=== PATIENT | male | born 1970 | race American Indian/Alaskan Native ===

== ENCOUNTER 2017-07-17 10:13 | Emergency (ER) | payer SELFPAY ==
[2017-07-17 10:20] VITALS: BMI 43.5
[2017-07-17] MEDS ORDERED: Sodium Chloride 0.9% 1,000 ML IV ONE (10:47)
[2017-07-17 11:08] LABS: BASO # 0.1 K/uL (0.0-0.2); BASO % 0.7 % (0.0-2.0); EOS # 0.3 K/uL (0.0-0.7); EOS % 2.5 % (0.0-4.0); HEMATOCRIT 37.8 % (35.0-51.0); LYMPH # 1.6 K/uL (1.0-4.3); LYMPH % 15.9 % (20.0-40.0); MEAN CELL VOLUME 81.6 fL (80.0-94.0); MEAN CORPUSCULAR HEMOGLOBIN 27.9 pg (27.0-31.0); MEAN CORPUSCULAR HGB CONC 34.3 g/dL (33.0-37.0); MEAN PLATELET VOLUME 7.7 fL (7.2-11.7); MONO # 1.4 K/uL (0.0-0.8); MONO % 14.2 % (0.0-10.0); RED CELL DISTRIBUTION WIDTH 13.4 % (11.5-14.5); WHITE BLOOD COUNT 10.2 K/uL (4.8-10.8)
[2017-07-17 11:17] LABS: CHLORIDE 97 mmol/L (98-107); POTASSIUM 4.2 mmol/L (3.6-5.2); SODIUM 132 mmol/L (132-148)
[2017-07-17 11:20] LABS: ALB/GLOB RATIO 0.8 (1.0-2.1); BILIRUBIN,TOTAL 0.6 mg/dL (0.2-1.3); BLOOD UREA NITROGEN 12 mg/dL (9-20); CARBON DIOXIDE 24 mmol/L (22-30); GFR AFRICAN-AMERICAN > 60; TOTAL PROTEIN 7.2 g/dL (6.3-8.3)
[2017-07-17 11:21] LABS: ALKALINE PHOSPHATASE 141 U/L (38-126); ALT/SGPT 74 U/L (21-72); AST/SGOT 60 U/L (17-59); CALCIUM 8.8 mg/dl (8.6-10.4); GLUCOSE,RANDOM 285 mg/dL (75-110)
--- NOTE | 2017-07-17 11:52 | C.PDOC ---
History Of Present Illness 46 year old male with PMH of DM presents to ED with complaints of fever, cough, generalized body aches, abdominal pain, nausea and vomiting for 3 days. Patient reports onset of cough and congestion was 3 days ago and gradually symptoms worsened, coughing up yellow sputum. He reports yesterday having abdominal pain with cough and vomited 2 times. Last night he developed fever and took Aleve with mild relief. Patient awoke this morning and feels body aches. He took theraflu without relief. 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 Time Seen by Provider: 07/17/17 10:46 Chief Complaint (Nursing): Flu-like Symptoms History Per: Patient History/Exam Limitations: no limitations Onset/Duration Of Symptoms: Days (x3) Current Symptoms Are (Timing): Still Present Sick Contacts (Context): Individual(s) At Work Associated Symptoms: Fever, Vomiting Past Medical History Reviewed: Historical Data, Nursing Documentation, Vital Signs Vital Signs: Last Vital Signs Temp 99.1 F 07/17/17 12:28 Pulse 102 H 07/17/17 12:28 Resp 20 07/17/17 12:28 BP 136/79 07/17/17 12:28 Pulse Ox 97 07/17/17 12:28 - Medical History PMH: Diabetes Family History: States: Unknown Family Hx - Social History Hx Alcohol Use: No Hx Substance Use: No - Immunization History Hx Tetanus Toxoid Vaccination: No Hx Influenza Vaccination: No Hx Pneumococcal Vaccination: No Review Of Systems Except As Marked, All Systems Reviewed And Found Negative. Constitutional: Positive for: Fever, Malaise ENT: Positive for: Nose Congestion. Negative for: Ear Pain, Throat Pain Cardiovascular: Negative for: Chest Pain, Palpitations Respiratory: Positive for: Cough, Sputum (yellow) Gastrointestinal: Positive for: Nausea, Vomiting, Abdominal Pain. Negative for : Diarrhea Musculoskeletal: Positive for: Other (Myalgias) Neurological: Negative for: Headache, Dizziness Physical Exam - Physical Exam Appears: Well, Non-toxic, No Acute Distress Skin: Warm, Dry, No Rash Head: Atraumatic, Normacephalic Eye(s): bilateral: Normal Inspection, PERRL, EOMI Ear(s): Bilateral: Normal (no erythema) Nose: Normal, No Flaring Oral Mucosa: Moist Teeth: Normal Dentition Gingiva: Normal Appearing Throat: Normal, No Erythema, No Exudate, No Drooling, No Mass Neck: Normal ROM Chest: Symmetrical Cardiovascular: Rhythm Regular (tachycardic), No Murmur Respiratory: Normal Breath Sounds, No Rales, No Rhonchi, No Wheezing Gastrointestinal/Abdominal: Bowel Sounds (active), Soft, Tenderness (Mild epigastric Tenderness), No Guarding Back: Normal Inspection, No CVA Tenderness, No Vertebral Tenderness, No Paraspinal Tenderness Extremity: Bilateral: Atraumatic, Normal Color And Temperature, Normal ROM Neurological/Psych: Oriented x3, Normal Speech Gait: Steady ED Course And Treatment - Laboratory Results Result Diagrams: 07/17/17 11:05 07/17/17 11:05 Lab Interpretation: Abnormal O2 Sat by Pulse Oximetry: 95 (RA) Pulse Ox Interpretation: Normal - Radiology CXR: Interpreted by Me, Viewed By Me CXR Interpretation: Yes: Infiltrates (left lower lobe), Heart Size (normal) Medical Decision Making Medical Decision Making: Impression: 46 y.o male with h.o DM c.o fever, cough, abdominal pain Prior records reviewed: Patient was admitted 07/12/17 for cellulitis and uncontrolled DM Plan: * Labs * CXR * IV NS * Tylenol Progress: Labs reviewed showing no leukocytosis CXR show infiltrate to left lower lobe, Will treat with antibiotics On re-eval, fever reduced and patient in no respiratory distress. Discussed results with patient, and copy of report was provided. Plan is to discharge with Rx. Patient feels comfortable going home and will be discharged. Patient given follow up instructions. Instructed to return to ER if symptoms worsen or new symptoms arise. Disposition Counseled Patient/Family Regarding: Studies Performed, Diagnosis, Need For Followup, Rx Given - Disposition Referrals: [facility] [Outside] [facility] [employer] [facility] [Outside] Disposition: HOME/ ROUTINE Disposition Time: 12:15 Condition: IMPROVED Additional Instructions: Your prescriptions were sent to your pharmacy Your labs show high blood sugar, be sure to take your diabetes medication XRay shows pneumonia for which you need to take antibiotic Zithromax daily Use inhaler as needed for any shortness of breath and cough medicine as needed Please follow up with your primary medical doctor or clinic in 2-5 days for further evaluation. Return to the emergency department at any time if symptoms persist or worsen. Prescriptions: Albuterol HFA [Ventolin HFA 90 mcg/actuation (8 g)] 1 puff IH Q4 #1 puff Azithromycin [Zithromax] 250 mg PO DAILY #4 tab Benzonatate [Tessalon Perles] 100 mg PO TID #30 sgl Instructions: Bacterial Pneumonia (DC) Forms: [facility] ([place]) - POA Present On Arrival: Poor Glycemic Control - Clinical Impression Clinical Impression: Pneumonia - Scribe Statement The provider has reviewed the documentation as recorded by the Scribomar Manzo All medical record entries made by the Scribe were at my direction and personally dictated by me. I have reviewed the chart and agree that the record accurately reflects my personal performance of the history, physical exam, medical decision making, and the department course for this patient. I have also personally directed, reviewed, and agree with the discharge instructions and disposition.
[2017-07-17 12:10] LABS: RBC URINE 2 /hpf (0-3); URINE BILIRUBIN NEGATIVE (NEGATIVE); URINE BLOOD 2+ (NEGATIVE); URINE COLOR Yellow (YELLOW); URINE GLUCOSE (UA) 1+ mg/dL (Normal); URINE KETONE NEGATIVE (NEGATIVE); URINE LEUKOCYTE ESTERASE NEG Leu/uL (Negative); URINE PROTEIN 2+ mg/dL (NEGATIVE); URINE UROBILINOGEN NORMAL mg/dL (0.2-1.0); WBC URINE 2 /hpf (0-5)
[2017-07-17 12:29] VITALS: BP 136/79; PULSE 102; RESP 20; TEMP 99.1
[2017-07-17 14:05] VITALS: O2SAT 95
--- NOTE | 2017-07-17 15:07 | RAD ---
HISTORY: cough, fever COMPARISON: Prior portable chest 07/13/2016 TECHNIQUE: Chest PA and lateral FINDINGS: LUNGS: Interval patchy density seen the mid to inferior left chest partially silhouetting the medial left hemidiaphragm but not the left heart border suggestive of a left lower lobe pneumonia. No right-sided infiltrate. PLEURA: No significant pleural effusion identified. No pneumothorax apparent. CARDIOVASCULAR: Normal. OSSEOUS STRUCTURES: No significant abnormalities. VISUALIZED UPPER ABDOMEN: Normal. OTHER FINDINGS: None. IMPRESSION: Findings compatible with interval left lower lobe pneumonia. Continued clinical and radiographic monitoring are advised.
== END 2017-07-17 12:49 | disposition home or self-care (01) ==
LOC: C.ER 10:13
DX: J18.9 Pneumonia, unspecified organism (principal)
CPT/HCPCS: 71020; 80053; 81001; 83690; 85025; 96360; 99285; J7040

== ENCOUNTER 2017-07-30 16:47 | Inpatient (IN) | payer SELFPAY ==
[2017-07-30 16:47] VITALS: BMI 43.5
[2017-07-30] MEDS ORDERED: Sodium Chloride 0.9% 1,000 ML IV ONE (17:31)
[2017-07-30] MEDS ORDERED: Morphine 4 MG/ML VIAL ONE (17:42)
[2017-07-30] MEDS ORDERED: Sodium Chloride 0.9% 1,000 ML ONE (17:42)
[2017-07-30 17:46] LABS: VENOUS BLOOD GAS BASE EXCESS 1.1 mmol/L (0.0-2.0); VENOUS BLOOD GAS PCO2 28 mmHg (40-60); VENOUS BLOOD PH 7.52 (7.32-7.43)
[2017-07-30 17:47] LABS: BASO # 0.1 K/uL (0.0-0.2); BASO % 0.4 % (0.0-2.0); EOS # 0.1 K/uL (0.0-0.7); EOS % 0.6 % (0.0-4.0); HEMATOCRIT 38.2 % (35.0-51.0); LYMPH # 1.8 K/uL (1.0-4.3); LYMPH % 8.1 % (20.0-40.0); MEAN CELL VOLUME 81.3 fL (80.0-94.0); MEAN CORPUSCULAR HEMOGLOBIN 28.3 pg (27.0-31.0); MEAN CORPUSCULAR HGB CONC 34.8 g/dL (33.0-37.0); MEAN PLATELET VOLUME 7.9 fL (7.2-11.7); MONO % 9.4 % (0.0-10.0); PLATELET COUNT 454 K/uL (130-400); RED CELL DISTRIBUTION WIDTH 13.2 % (11.5-14.5); WHITE BLOOD COUNT 21.7 K/uL (4.8-10.8)
[2017-07-30 18:02] LABS: CHLORIDE 98 mmol/L (98-107); POTASSIUM 4.4 mmol/L (3.6-5.2); SODIUM 132 mmol/L (132-148)
[2017-07-30 18:04] LABS: GFR AFRICAN-AMERICAN > 60
[2017-07-30 18:05] LABS: ALKALINE PHOSPHATASE 123 U/L (38-126); ALT/SGPT 35 U/L (21-72); AST/SGOT 29 U/L (17-59); BILIRUBIN,TOTAL 1.2 mg/dL (0.2-1.3); BLOOD UREA NITROGEN 15 mg/dL (9-20); CARBON DIOXIDE 21 mmol/L (22-30); GLUCOSE,RANDOM 270 mg/dL (75-110)
[2017-07-30] MEDS ORDERED: Vancomycin 1 gm/NS 200 ml 200 ML IVPB STA (18:28)
[2017-07-30] MEDS ORDERED: Piperacill/Tazo 3.375gm in Dex 50 ML IVPB STA (18:28)
--- NOTE | 2017-07-30 18:31 | C.PDOC ---
History Of Present Illness 46 y/o male with PMH HTN , DM, asthma, and multiple abscesses presents to ED for evaluation of "boil" to right groin associated with fever, and pain for the last 3 days. Notes having history of similar episode last year. Pt states he has history of diabetes but is not taking any medications for it. Of note, pt was diagnosed with pneumonia 2 weeks ago, and states that his cough and congestion still persists. No shortness of breath, chest pain, or any other complaints at this time. Time Seen by Provider: 07/30/17 17:08 Chief Complaint (Nursing): Fever History Per: Patient History/Exam Limitations: no limitations Onset/Duration Of Symptoms: Days (3) Current Symptoms Are (Timing): Still Present Location Of Pain: None Associated Symptoms: Fever. denies: Nausea, Vomiting, Diarrhea Past Medical History Reviewed: Historical Data, Nursing Documentation, Vital Signs Vital Signs: Last Vital Signs Temp 97.6 F 08/03/17 16:12 Pulse 104 H 08/03/17 16:12 Resp 20 08/03/17 16:12 BP 128/74 08/03/17 16:12 Pulse Ox 96 08/03/17 16:12 - Medical History PMH: No Chronic Diseases, Diabetes Family History: States: Unknown Family Hx - Social History Hx Alcohol Use: No Hx Substance Use: No - Immunization History Hx Tetanus Toxoid Vaccination: No Hx Influenza Vaccination: No Hx Pneumococcal Vaccination: No Review Of Systems Except As Marked, All Systems Reviewed And Found Negative. Constitutional: Positive for: Fever ENT: Positive for: Nose Congestion Cardiovascular: Negative for: Chest Pain, Palpitations Respiratory: Positive for: Cough. Negative for: Shortness of Breath Gastrointestinal: Negative for: Nausea, Vomiting, Abdominal Pain Skin: Positive for: Other (painful boil to right groin) Neurological: Negative for: Weakness, Numbness Physical Exam - Physical Exam Appears: Non-toxic, No Acute Distress Skin: Warm, Dry, Other (swelling, induration, and tenderness to right groin area with 0.5 cm open wound with drainage) Head: Atraumatic, Normacephalic Eye(s): bilateral: Normal Inspection, EOMI Oral Mucosa: Moist Neck: Normal ROM, Supple Chest: Symmetrical Cardiovascular: Rhythm Regular Respiratory: Normal Breath Sounds, No Rales, No Rhonchi, No Wheezing Gastrointestinal/Abdominal: Soft, No Tenderness Extremity: Normal ROM Neurological/Psych: Oriented x3, Normal Speech, Normal Cognition ED Course And Treatment - Laboratory Results Result Diagrams: 08/03/17 06:45 08/03/17 06:45 O2 Sat by Pulse Oximetry: 100 (on RA) Pulse Ox Interpretation: Normal Progress Note: Blood work, UA, CXRordered and reviewed. Pt was given Cleocin, Morphine, Vancomycin, Tylenol, Zosyn, and IV fluids. Case discussed with Dr. Edu Louis, who agrees upon plan and admission. Disposition - Disposition Disposition: HOSPITALIZED Disposition Time: 19:00 Condition: STABLE - Clinical Impression Clinical Impression: Uncontrolled diabetes mellitus, Pneumonia, Cellulitis of right thigh - PA / DOG BARBER / Resident Statement MD/DO has reviewed & agrees with the documentation as recorded. - Scribe Statement The provider has reviewed the documentation as recorded by the Scribe Jayde Louis All medical record entries made by the Scribomar were at my direction and personally dictated by me. I have reviewed the chart and agree that the record accurately reflects my personal performance of the history, physical exam, medical decision making, and the department course for this patient. I have also personally directed, reviewed, and agree with the discharge instructions and disposition.
[2017-07-30 18:43] LABS: MAGNESIUM 1.4 mg/dL (1.6-2.3); PHOSPHOROUS 3.4 mg/dL (2.5-4.5)
[2017-07-30 18:47] LABS: INR 1.2
[2017-07-30] MEDS ORDERED: Piperacillin/Tazobact 3.375 gm 100 ML IVPB ONE (19:00)
[2017-07-30] MEDS ORDERED: Vancomycin 1 GM 1 GM/250 ML BAG IVPB ONE ×2 (19:00→19:02)
[2017-07-30 19:43] LABS: NEUTROPHIL 79 % (50-75); TOTAL CELLS COUNTED 100
[2017-07-30 20:23] LABS: VENOUS BLOOD GAS BASE EXCESS 1.3 mmol/L (0.0-2.0); VENOUS BLOOD GAS PCO2 36 mmHg (40-60); VENOUS BLOOD PH 7.45 (7.32-7.43)
[2017-07-31] MEDS: Magnesium Sulfate 1 gm in D5W 1 GM/100 ML BAG IVPB SCH ×2 (01:01→01:07)
--- NOTE | 2017-07-31 02:55 | CP.PCM.HP ---
<Tim Shukla - Last Filed: 07/31/17 08:08> Meds Allergies/Adverse Reactions: Allergies Allergy/AdvReac Type Severity Reaction Status Date / Time No Known Allergies Allergy Verified 07/30/17 17:01 Results - Vital Signs Recent Vital Signs: Last Vital Signs Temp 102.7 F H 07/31/17 00:00 Pulse 117 H 07/31/17 00:00 Resp 20 07/31/17 00:00 BP 131/83 07/31/17 00:00 Pulse Ox 95 07/31/17 00:00 - Labs Result Diagrams: 07/30/17 17:48 07/30/17 17:48 Labs: Laboratory Results - last 24 hr 07/30/17 07/31/17 20:20 07:11 pO2 58 H VBG pH 7.45 H VBG pCO2 36 L VBG HCO3 25.8 VBG Total CO2 26.1 VBG O2 Sat (Calc) 94.3 H VBG Base Excess 1.3 VBG Potassium 4.0 Sodium 134.0 Chloride 102.0 Glucose 281 H Lactate 1.2 POC Glucose (mg/dL) 341 H Venous Blood Potassium 4.0 Attending/Attestation - Attestation I have personally seen and examined this patient.: Yes I have fully participated in the care of the patient.: Yes I have reviewed all pertinent clinical information: Yes Notes (Text): Right groin carbuncle/induration draining puss, swab sent gm stain--> gpc, 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 Plan IVF Clindamycin, as gram stain shows gpc Home dose insulin with sliding scale Replace mag Surgery consult GI/DVT prophylaxis See orders for detail. <Irina Barlow - Last Filed: 07/31/17 08:40> History of Present Illness - History of Present Illness History of Present Illness: HPI: Pt is a 46M with PMH asthma, DM, HTN, and pneumonia 2 weeks ago who presents to the ED c/o flu like symptoms and boil on his right groin. Patient says he noticed a bump in his groin 2 days ago that has gradually enlarged and become more erythematous. Patient says it is painful and describes it as 10/10 intensity. Patient says he also started feeling ill on his way home from work today. Patient admits to fever and chills, feeling weak, dizziness, exertional SOB, cough productive of white sputum, nausea, and vomiting. Patient says he vomited 2-3x yesterday and 3-4x today. Patient says it looked like whatever he ate. Patient denies hematemesis, LAZO, change in vision, tinnitus, sore throat, neck pain, lymphadenopathy, CP/palpitations, wheezing, AP/D/C/melena/ hematochezia, dysuria, frequency, incontinence, hematuria, flank pain, back or joint pain, syncope, and rash. 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 Present on Admission - Present on Admission Any Indicators Present on Admission: Yes History of DVT/PE: No History of Uncontrolled Diabetes: Yes Review of Systems - Review of Systems All systems: reviewed and no additional remarkable complaints except (as per HPI ) Past Patient History - Infectious Disease Hx of Infectious Diseases: None - Past Social History Smoking Status: Former Smoker - ENDOCRINE/METABOLIC Hx Endocrine Disorders: Yes Hx Diabetes Mellitus Type 2: Yes - MUSCULOSKELETAL/RHEUMATOLOGICAL Hx Falls: No - PSYCHIATRIC Hx Substance Use: No - SURGICAL HISTORY Hx Surgeries: No - ANESTHESIA Hx Anesthesia: No Physical Exam - Constitutional Appears: Non-toxic, No Acute Distress - Head Exam Head Exam: NORMAL INSPECTION - Eye Exam Eye Exam: EOMI - ENT Exam ENT Exam: Mucous Membranes Moist - Respiratory Exam Respiratory Exam: Clear to Auscultation Bilateral, NORMAL BREATHING PATTERN - Cardiovascular Exam Cardiovascular Exam: REGULAR RHYTHM, +S1, +S2 - GI/Abdominal Exam GI & Abdominal Exam: Normal Bowel Sounds, Soft. absent: Distended, Tenderness - Exam Additional comments: abscess in Right groin area with purulent drainage, surrounding erythema, and distal tracking. - Extremities Exam Extremities exam: Positive for: normal inspection, pedal pulses present. Negative for: tenderness - Neurological Exam Neurological exam: Alert - Psychiatric Exam Psychiatric exam: Normal Affect, Normal Mood - Skin Skin Exam: Dry, Intact, Normal Color, Warm Results - Vital Signs Recent Vital Signs: Last Vital Signs Temp 102.7 F H 07/31/17 00:00 Pulse 117 H 07/31/17 00:00 Resp 20 07/31/17 00:00 BP 131/83 07/31/17 00:00 Pulse Ox 95 07/31/17 00:00 - Labs Result Diagrams: 07/30/17 17:48 07/30/17 17:48 Labs: Laboratory Results - last 24 hr 07/30/17 20:20 pO2 58 H VBG pH 7.45 H VBG pCO2 36 L VBG HCO3 25.8 VBG Total CO2 26.1 VBG O2 Sat (Calc) 94.3 H VBG Base Excess 1.3 VBG Potassium 4.0 Sodium 134.0 Chloride 102.0 Glucose 281 H Lactate 1.2 Venous Blood Potassium 4.0 Assessment & Plan - Assessment and Plan (Free Text) Assessment: Cellulitis * Surgery consult ([facility]) - recs appreciated * Clindamycin 600 mg Q6 Fever * Tylenol 650 mg PO Q6 PRN Hx DM * F/U HbA1c * Novalin 70/30 25 U BID AC * Insulin sliding scale Hx HTN * Elanapril 2.5 mg BID (home med) Prophylaxis * Heparin * Protonix * Zofran PRN nausea - Date & Time Date: 07/31/17 Time: 08:39
[2017-07-31 08:39] LABS: BASO # 0.1 K/uL (0.0-0.2); BASO % 0.6 % (0.0-2.0); EOS % 0.1 % (0.0-4.0); LYMPH # 1.2 K/uL (1.0-4.3); LYMPH % 6.4 % (20.0-40.0); MEAN CORPUSCULAR HEMOGLOBIN 27.6 pg (27.0-31.0); MEAN CORPUSCULAR HGB CONC 33.7 g/dL (33.0-37.0); MEAN PLATELET VOLUME 8.4 fL (7.2-11.7); MONO # 2.1 K/uL (0.0-0.8); MONO % 10.8 % (0.0-10.0); PLATELET COUNT 380 K/uL (130-400); RED CELL DISTRIBUTION WIDTH 13.3 % (11.5-14.5); WHITE BLOOD COUNT 19.5 K/uL (4.8-10.8)
[2017-07-31] MEDS: (Novolog Mix 70/30) Insulin Aspart/Insulin Aspar 100 units/ml SC SCH ×2 (08:40→17:28)
[2017-07-31] MEDS: (Novolin R) Insulin Human Regular 100 units/ml vial SC SCH ×4 (08:40→22:25)
[2017-07-31 08:47] LABS: CHLORIDE 96 mmol/L (98-107); SODIUM 129 mmol/L (132-148)
[2017-07-31 08:48] LABS: POTASSIUM 4.3 mmol/L (3.6-5.2)
[2017-07-31 08:50] LABS: ALB/GLOB RATIO 0.8 (1.0-2.1); ALKALINE PHOSPHATASE 125 U/L (38-126); AST/SGOT 26 U/L (17-59); BILIRUBIN,TOTAL 1.2 mg/dL (0.2-1.3); BLOOD UREA NITROGEN 15 mg/dL (9-20); CARBON DIOXIDE 21 mmol/L (22-30); GFR AFRICAN-AMERICAN > 60; GLUCOSE,RANDOM 392 mg/dL (75-110); PHOSPHOROUS 2.6 mg/dL (2.5-4.5)
[2017-07-31 08:51] LABS: ALT/SGPT 36 U/L (21-72); CALCIUM 8.2 mg/dl (8.6-10.4); MAGNESIUM 1.9 mg/dL (1.6-2.3)
--- NOTE | 2017-07-31 09:06 | CP.PCM.CON ---
<Cecilia Ramirez - Last Filed: 07/31/17 09:23> History of Present Illness - History of Present Illness History of Present Illness: General surgery consult note for Dr. Ch Consulted for: right inguinal abscess Patient is a 46M with PMH of HTN, DM, asthma, and abscesses, who presented to the ED with subjective fevers, chills, nausea and a "boil" in his right groin. Also complaining of SOB and cough. Patient states that he first noticed the lesion 2 days ago and that it has gotten more painful. Denies any trauma to the area, denies shaving that area, denies vomiting, chest pain, dysuria, hematuria , diarrhia, hematochezia or melena. Patient was admitted recently seen in the ER for pneumonia and discharged to home with PO azithromycin. Patient states that systemic symptoms are very similar to that time. Patient has had multiple abscesses of the skin previously, which resolved with conservative management PMH: HTN, DM, asthma, and abscesses PSH: none All: NKDA Social: denies tobacco, ETOH, and drugs Review of Systems - Review of Systems All systems: reviewed and no additional remarkable complaints except (as per HPI ) - Constitutional Constitutional: Chills, Fever, Weakness - Cardiovascular Cardiovascular: Diaphoresis, Dyspnea. absent: Chest Pain - Respiratory Respiratory: Cough, Dyspnea, Dyspnea on Exertion - Gastrointestinal Gastrointestinal: Nausea. absent: Abdominal Pain, Diarrhea, Hematochezia, Melena, Vomiting - Genitourinary Genitourinary: absent: Change in Urinary Stream, Dysuria, Hematuria - Musculoskeletal Musculoskeletal: Myalgias. absent: Back Pain, Numbness, Tingling - Integumentary Integumentary: Lesions (abscess in the right groin) - Neurological Neurological: absent: Dizziness, Numbness, Tingling - Psychiatric Psychiatric: absent: Anxiety - Endocrine Endocrine: Fatigue. absent: Polyuria Past Patient History - Infectious Disease Hx of Infectious Diseases: None - Past Social History Smoking Status: Former Smoker Cigar Use: No Alcohol: None Drugs: Denies - ENDOCRINE/METABOLIC Hx Endocrine Disorders: Yes Hx Diabetes Mellitus Type 2: Yes - MUSCULOSKELETAL/RHEUMATOLOGICAL Hx Falls: No - PSYCHIATRIC Hx Substance Use: No - SURGICAL HISTORY Hx Surgeries: No - ANESTHESIA Hx Anesthesia: No Meds Allergies/Adverse Reactions: Allergies Allergy/AdvReac Type Severity Reaction Status Date / Time No Known Allergies Allergy Verified 07/30/17 17:01 - Medications Medications: Current Medications Acetaminophen (Tylenol 325mg Tab) 650 mg PO Q6 PRN PRN Reason: Fever >100.4 F Last Admin: 07/31/17 05:36 Dose: 650 mg Heparin Sodium (Porcine) (Heparin) 5,000 units SC Q8 [facility] Last Admin: 07/31/17 05:40 Dose: 5,000 units Clindamycin Phosphate 600 mg/ (Sodium Chloride) 54 mls @ 100 mls/hr IVPB Q6H [facility] Last Admin: 07/31/17 05:40 Dose: 100 mls/hr Insulin Aspart (Novolog Mix 70/30 (70/30 Units/Ml)) 25 units SC BIDAC [facility] Insulin Human Regular (Novolin R) 0 unit SC ACHS [facility] PRN Reason: Protocol Lisinopril (Zestril) 5 mg PO DAILY [facility] Ondansetron HCl (Zofran Inj) 4 mg IVP Q6 [facility] Last Admin: 07/31/17 05:39 Dose: 4 mg Pantoprazole Sodium (Protonix Ec Tab) 40 mg PO DAILY [facility] Physical Exam - Constitutional Appears: Toxic - Head Exam Head Exam: ATRAUMATIC, NORMOCEPHALIC - Eye Exam Eye Exam: Normal appearance. absent: Conjunctival injection, Scleral icterus - ENT Exam ENT Exam: Mucous Membranes Moist, Normal Oropharynx - Respiratory Exam Respiratory Exam: absent: NORMAL BREATHING PATTERN Additional comments: increased respiratory effort - Cardiovascular Exam Cardiovascular Exam: Tachycardia - GI/Abdominal Exam GI & Abdominal Exam: Soft. absent: Distended, Tenderness - Exam Exam: absent: Scrotal Swelling, Testicular Tenderness - Extremities Exam Extremities exam: Positive for: pedal pulses present. Negative for: calf tenderness, pedal edema - Neurological Exam Neurological exam: Alert, Oriented x3 - Psychiatric Exam Psychiatric exam: Normal Affect, Normal Mood - Skin Skin Exam: Diaphoretic, Normal Color, Warm Additional comments: right groin abscess with surrounding induration. Purulent fluid expressible from opening approximtely 1cm in length. No fluctuance appreciated Results - Vital Signs Recent Vital Signs: Last Vital Signs Temp 99 F 07/31/17 08:37 Pulse 113 H 07/31/17 08:37 Resp 20 07/31/17 08:37 BP 109/73 07/31/17 08:37 Pulse Ox 96 07/31/17 08:37 - Labs Result Diagrams: 07/31/17 08:23 07/31/17 08:23 Labs: Laboratory Results - last 24 hr 07/30/17 07/31/17 07/31/17 20:20 07:11 08:23 WBC 19.5 H RBC 4.27 L Hgb 11.8 L Hct 35.0 MCV 82.0 MCH 27.6 MCHC 33.7 RDW 13.3 Plt Count 380 MPV 8.4 Neut % (Auto) 82.1 H Lymph % (Auto) 6.4 L Irion % (Auto) 10.8 H Eos % (Auto) 0.1 Baso % (Auto) 0.6 Neut # 16.0 H Lymph # 1.2 Irion # 2.1 H Eos # 0.0 Baso # 0.1 pO2 58 H VBG pH 7.45 H VBG pCO2 36 L VBG HCO3 25.8 VBG Total CO2 26.1 VBG O2 Sat (Calc) 94.3 H VBG Base Excess 1.3 VBG Potassium 4.0 Sodium 134.0 Chloride 102.0 Glucose 281 H Lactate 1.2 Potassium Carbon Dioxide Anion Gap BUN Creatinine Est GFR ( Amer) Est GFR (Non-Af Amer) POC Glucose (mg/dL) 341 H Random Glucose Calcium Phosphorus Magnesium Total Bilirubin AST ALT Alkaline Phosphatase Total Protein Albumin Globulin Albumin/Globulin Ratio Venous Blood Potassium 4.0 07/31/17 08:23 WBC RBC Hgb Hct MCV MCH MCHC RDW Plt Count MPV Neut % (Auto) Lymph % (Auto) Irion % (Auto) Eos % (Auto) Baso % (Auto) Neut # Lymph # Irion # Eos # Baso # pO2 VBG pH VBG pCO2 VBG HCO3 VBG Total CO2 VBG O2 Sat (Calc) VBG Base Excess VBG Potassium Sodium 129 L Chloride 96 L Glucose Lactate Potassium 4.3 Carbon Dioxide 21 L Anion Gap 16 BUN 15 Creatinine 1.0 Est GFR ( Amer) > 60 Est GFR (Non-Af Amer) > 60 POC Glucose (mg/dL) Random Glucose 392 H Calcium 8.2 L Phosphorus 2.6 Magnesium 1.9 Total Bilirubin 1.2 AST 26 ALT 36 Alkaline Phosphatase 125 Total Protein 7.0 Albumin 3.2 L Globulin 3.8 Albumin/Globulin Ratio 0.8 L Venous Blood Potassium Assessment & Plan - Assessment and Plan (Free Text) Assessment: 46M with right groin abscess and pneumonia febrile with T max 102.7, tachycardia WBC: 19.5 this AM down from 21.1 Plan: -Conservative management at this time--abscess is draining spontaneously and clinical picture likely due to simultaneous pneumonia -Warm compresses -Will re-assess later today -F/U CBC tomorrow AM -continue antibiotics, pain regimen, and nausea medication PRN -IVF -GI PPX -Patient may have diet Further recs per Dr. Atif Ramirez PGY2 <Stefan Srivastava - Last Filed: 08/01/17 21:11> Meds - Medications Medications: Current Medications Acetaminophen (Tylenol 325mg Tab) 650 mg PO Q6 PRN PRN Reason: Fever >100.4 F Last Admin: 07/31/17 15:03 Dose: 650 mg Benzonatate (Tessalon Perles) 100 mg PO TID [facility] Heparin Sodium (Porcine) (Heparin) 5,000 units SC Q8 [facility] Last Admin: 08/01/17 14:22 Dose: 5,000 units Piperacillin Sod/Tazobactam (Sod 3.375 gm/ Sodium Chloride) 100 mls @ 200 mls/ hr IVPB Q8H [facility] Last Admin: 08/01/17 18:43 Dose: 200 mls/hr Sodium Chloride (Sodium Chloride 0.9%) 1,000 mls @ 150 mls/hr IV .Q6H40M [facility] Last Admin: 08/01/17 15:12 Dose: 150 mls/hr Insulin Aspart (Novolog Mix 70/30 (70/30 Units/Ml)) 25 units SC BIDAC [facility] Last Admin: 08/01/17 17:26 Dose: 25 units Insulin Human Regular (Novolin R) 0 unit SC ACHS [facility] PRN Reason: Protocol Last Admin: 08/01/17 17:26 Dose: 6 unit Ketorolac Tromethamine (Toradol) 30 mg IVP Q6 PRN PRN Reason: Pain, moderate (4-7) Last Admin: 08/01/17 17:25 Dose: 30 mg Lisinopril (Zestril) 5 mg PO DAILY [facility] Last Admin: 08/01/17 09:54 Dose: 5 mg Morphine Sulfate (Morphine) 4 mg IVP Q4 PRN PRN Reason: Pain, severe (8-10) Ondansetron HCl (Zofran Inj) 4 mg IVP Q6 [facility] Last Admin: 08/01/17 17:26 Dose: 4 mg Pantoprazole Sodium (Protonix Ec Tab) 40 mg PO DAILY [facility] Last Admin: 08/01/17 09:54 Dose: 40 mg Results - Vital Signs Recent Vital Signs: Last Vital Signs Temp 98.2 F 08/01/17 16:00 Pulse 97 H 08/01/17 16:00 Resp 20 08/01/17 16:00 BP 101/68 08/01/17 16:00 Pulse Ox 99 08/01/17 16:00 - Labs Result Diagrams: 08/01/17 07:41 08/01/17 07:41 Labs: Laboratory Results - last 24 hr 07/31/17 08/01/17 08/01/17 21:05 01:34 07:23 WBC RBC Hgb Hct MCV MCH MCHC RDW Plt Count MPV Neut % (Auto) Lymph % (Auto) Irion % (Auto) Eos % (Auto) Baso % (Auto) Neut # Lymph # Irion # Eos # Baso # Sodium Potassium Chloride Carbon Dioxide Anion Gap BUN Creatinine Est GFR ( Amer) Est GFR (Non-Af Amer) POC Glucose (mg/dL) 306 H 246 H 269 H Random Glucose Calcium Phosphorus Magnesium Total Bilirubin AST ALT Alkaline Phosphatase Total Protein Albumin Globulin Albumin/Globulin Ratio Triglycerides Cholesterol LDL Cholesterol Direct HDL Cholesterol 08/01/17 08/01/17 08/01/17 07:41 07:41 11:10 WBC 18.4 H RBC 3.92 L Hgb 10.8 L Hct 32.5 L MCV 82.8 MCH 27.5 MCHC 33.1 RDW 13.2 Plt Count 356 MPV 8.6 Neut % (Auto) 76.5 H Lymph % (Auto) 10.3 L Irion % (Auto) 11.2 H Eos % (Auto) 1.2 Baso % (Auto) 0.8 Neut # 14.1 H Lymph # 1.9 Irion # 2.1 H Eos # 0.2 Baso # 0.2 Sodium 136 Potassium 4.1 Chloride 100 Carbon Dioxide 22 Anion Gap 19 BUN 9 Creatinine 0.9 Est GFR ( Amer) > 60 Est GFR (Non-Af Amer) > 60 POC Glucose (mg/dL) 265 H Random Glucose 259 H Calcium 7.9 L Phosphorus 2.5 Magnesium 1.8 Total Bilirubin 1.1 AST 34 ALT 34 Alkaline Phosphatase 189 H D Total Protein 6.4 Albumin 2.9 L Globulin 3.6 Albumin/Globulin Ratio 0.8 L Triglycerides 182 H Cholesterol 122 LDL Cholesterol Direct 46 HDL Cholesterol 27 L 08/01/17 16:26 WBC RBC Hgb Hct MCV MCH MCHC RDW Plt Count MPV Neut % (Auto) Lymph % (Auto) Irion % (Auto) Eos % (Auto) Baso % (Auto) Neut # Lymph # Irion # Eos # Baso # Sodium Potassium Chloride Carbon Dioxide Anion Gap BUN Creatinine Est GFR ( Amer) Est GFR (Non-Af Amer) POC Glucose (mg/dL) 285 H Random Glucose Calcium Phosphorus Magnesium Total Bilirubin AST ALT Alkaline Phosphatase Total Protein Albumin Globulin Albumin/Globulin Ratio Triglycerides Cholesterol LDL Cholesterol Direct HDL Cholesterol Attending/Attestation - Attestation I have personally seen and examined this patient.: Yes I have fully participated in the care of the patient.: Yes I have reviewed all pertinent clinical information: Yes Notes (Text): 08/01/17 21:10 Pt was seen and examined at bedside Agree with above note and assessment Pt with right groin abscess I & D at bedside Consent NPO, IVF IV antibiotics Plan d.w pt in detail Risk and benefit explained in detail.
[2017-07-31 09:28] LABS: NEUTROPHIL 82 % (50-75); REACTIVE LYMPHOCYTES 1 % (0-0); TOTAL CELLS COUNTED 100
[2017-07-31 09:29] LABS: GIANT PLATELETS PRESENT; LARGE PLATELETS PRESENT
[2017-07-31 09:30] LABS: PLATELET CLUMPS PRESENT
[2017-07-31] MEDS ORDERED: Sodium Chloride 0.9% 1,000 ML IV SCH (10:30)
--- NOTE | 2017-07-31 11:09 | RAD ---
PROCEDURE: CHEST RADIOGRAPH, 1 VIEW HISTORY: uri COMPARISON: 07/17/2017 FINDINGS: LUNGS: Linear scar/ atelectasis at both lung bases. No farnaz infiltrate. PLEURA: No pneumothorax or pleural fluid seen. CARDIOVASCULAR: Normal. OSSEOUS STRUCTURES: No significant abnormalities. VISUALIZED UPPER ABDOMEN: Normal. OTHER FINDINGS: None. IMPRESSION: No active disease.
[2017-07-31] MEDS: Pantoprazole 40 mg EC Tab PO SCH (11:31)
[2017-07-31] MEDS: Piperacillin/Tazobact 3.375 GM in Sodium Chloride 100 ML IVPB SCH ×2 (11:32→19:48)
[2017-07-31 11:53] LABS: VENOUS BLOOD GAS BASE EXCESS 0.3 mmol/L (0.0-2.0); VENOUS BLOOD GAS PCO2 48 mmHg (40-60); VENOUS BLOOD PH 7.35 (7.32-7.43)
[2017-07-31] MEDS ORDERED: Sodium Chloride 0.9% 1,000 ML IV ONE ×2 (12:28→12:30)
--- NOTE | 2017-07-31 12:44 | PCM.SEPTIC ---
Sepsis Progress Note - Reassessment Type Date of Evaluation: 07/31/17 Time of Evaluation: 12:17 Reassessment Type: Non-invasive reassessment - Non Invasive Reassessment Were the most recent vital sign reviewed: Yes Vital Sign (Latest): Temp Pulse Resp BP Pulse Ox 103.3 F H 132 H 20 172/82 H 96 07/31/17 12:00 07/31/17 12:00 07/31/17 12:00 07/31/17 12:00 07/31/17 12:00 Cardiovascular: Yes: Tachycardia Respiratory: Yes: Normal Breath Sounds Capillary Refill: Normal (Less than 2 sec) Pulses: Normal Radial, Normal Dorsalis Pedis, Normal Posterior Tibialis Skin: Warm - Invasive Reassessment (complete 2 of 4) Was a Central Venous Pressure Measurement obtained within 6 Hours after the presentation of septic shock: No Was a central venous oxygen measurement obtained within 6 hours after the presentation of septic shock: No Was a bedside cardiovascular ultrasound performed within 6 hours after the presentation of septic shock: No Was a passive leg raise performed or was a fluid challenge performed within 6 hrs of the initial fluid bolus: Yes Fluid Challenge performed: Yes
[2017-07-31 13:37] LABS: URINE BILIRUBIN NEGATIVE (NEGATIVE); URINE BLOOD 1+ (NEGATIVE); URINE COLOR Yellow (YELLOW); URINE GLUCOSE (UA) 3+ mg/dL (Normal); URINE KETONE NEGATIVE (NEGATIVE); URINE LEUKOCYTE ESTERASE NEG Leu/uL (Negative); URINE PROTEIN 1+ mg/dL (NEGATIVE); URINE UROBILINOGEN NORMAL mg/dL (0.2-1.0); WBC URINE 1 /hpf (0-5)
[2017-07-31 13:38] LABS: RBC URINE 4 /hpf (0-3)
[2017-07-31] MEDS ORDERED: Lidocaine 1% Inj (20ml) INFIL ONE (13:47)
[2017-07-31] MEDS ORDERED: Lidocaine 1% Inj (20ml) ONE (13:49)
[2017-07-31] MEDS: Sodium Chloride 0.9% 1,000 ML IV SCH ×3 (14:40→22:27)
--- NOTE | 2017-07-31 14:50 | PCM.PROC ---
Procedures - Time-Out Type of Procedure: Incision and Drainage of R groin abscess Site of Procedure: R groin Correct Patient (with visual ID + MR# on ID Band): Yes Correct Procedure: Yes Correct Site Marked: Yes - Incision and Drainage Site: Right Groin Blade Size: 10 I & D Procedure: betadine prep, sterile dressing applied, gauze wick placed Progress: Informed consent was obtained prior to the procedure. Approx. 13cc lidoacine 1 % was injected into the skin. A #10 blade scalpel was used to make a cruciate incision. Purulent drainage was expressed and was sent for culture. Gauze packing placed and clean dressing applied. Pt. tolerated the procedure well
--- NOTE | 2017-07-31 14:54 | PCM.PROC ---
<Delio Doss - Last Filed: 07/31/17 14:52> Procedures Attestation:: I certify that I have explained the specified Operation(s) or Procedure(s), risks, benefits and reasonable alternatives to the Patient and/or other person responsible. The opportunity was given to ask questions and all questions answered - Central Line Placement Left Internal Jugular Triple Lumen Catheter Aseptic technique was employed throughout the procedure: Hand Hygiene done prior to procedure, Full sterile barriers (mask, hair cover, sterile gown, sterile gloves), Full body sterile drape, Chloraprep Antiseptic: 30 second prep for IJ or SC sites CVP Time Out Performed: Yes Pt. Placed on Pulse Ox Monitor: Yes Central Line Prep: Chlorhexidine-Alcohol Combination Local Anesthesia Used: Lidocaine 1% Amount of Anesthesia Used (mls): 5 Ultrasound Used for Placement: Yes Central Line Lumen Inserted: triple Central Line Length: 16 cm Post Procedure: Sutured in Place, Good Blood Return, All Ports Aspirated, Flushed, Capped, Sterile Dressing Applied Secured by: Securement device Post procedure dressing: Clear vapor permeable, Chlorhexidine disc (Biopatch) Post Procedure X-Ray: Yes Patient Tolerated Procedure: Well Immediate Complications: None <James Miles - Last Filed: 07/31/17 15:14> Attending/Attestation - Attestation I have personally seen and examined this patient.: Yes I have fully participated in the care of the patient.: Yes I have reviewed all pertinent clinical information, including history, physical exam and plan: Yes Notes (Text): 07/31/17 15:14 Medical attending: Agree with the above note by the resident. I was present during the procedure
[2017-07-31 15:41] LABS: VENOUS BLOOD GAS BASE EXCESS 0.3 mmol/L (0.0-2.0); VENOUS BLOOD GAS PCO2 32 mmHg (40-60); VENOUS BLOOD PH 7.47 (7.32-7.43)
--- NOTE | 2017-07-31 15:59 | RAD ---
HISTORY: TLC placment L. IJ COMPARISON: 07/30/2017 FINDINGS: LUNGS: Bibasilar linear scar/ atelectasis, unchanged. No infiltrate. PLEURA: No significant pleural effusion identified, no pneumothorax apparent. CARDIOVASCULAR: Normal heart size. Left internal jugular central venous catheter terminates in the region of the superior vena cava. OSSEOUS STRUCTURES: No significant abnormalities. VISUALIZED UPPER ABDOMEN: Normal. OTHER FINDINGS: None. IMPRESSION: New left IJ central venous catheter with tip positioned approximately at the level of the superior vena cava. No pneumothorax peer
--- NOTE | 2017-07-31 16:15 | PCM.SEPTIC ---
Sepsis Progress Note - Reassessment Type Date of Evaluation: 07/31/17 Time of Evaluation: 16:13 Reassessment Type: Non-invasive reassessment - Non Invasive Reassessment Were the most recent vital sign reviewed: Yes Vital Sign (Latest): Temp Pulse Resp BP Pulse Ox 103.3 F H 132 H 20 172/82 H 96 07/31/17 12:00 07/31/17 12:00 07/31/17 12:00 07/31/17 12:00 07/31/17 12:00 Cardiovascular: Yes: Regular Rate, Rhythm Respiratory: Yes: Normal Breath Sounds Capillary Refill: Normal (Less than 2 sec) Pulses: Normal Radial, Normal Dorsalis Pedis, Normal Posterior Tibialis Skin: Normal Color, Warm Was a central venous oxygen measurement obtained within 6 hours after the presentation of septic shock: No Was a bedside cardiovascular ultrasound performed within 6 hours after the presentation of septic shock: No Was a passive leg raise performed or was a fluid challenge performed within 6 hrs of the initial fluid bolus: No
--- NOTE | 2017-07-31 16:20 | CP.PCM.PN ---
<Delio Doss - Last Filed: 07/31/17 16:22> Subjective - Date & Time of Evaluation Date of Evaluation: 07/31/17 Time of Evaluation: 16:16 - Subjective Subjective: PGY1 Note for Dr. Miles HPI: Patient seen and examined at bedside. On first examination of the patient he looked lethargic and was complaining of pain in his thigh near the abscess on the R. side with minimal chest pain and no SOB. However the patient was visibly working to breath. I reexamined the patient soon after and he was coughing up blood tinged sputum. He states he had been coughing up clear and frothy sputum all night. No other complaints were present Objective - Vital Signs/Intake and Output Vital Signs (last 24 hours): Temp Pulse Resp BP Pulse Ox 103.3 F H 132 H 20 172/82 H 96 07/31/17 12:00 07/31/17 12:00 07/31/17 12:00 07/31/17 12:00 07/31/17 12:00 Intake and Output: 07/31/17 07/31/17 06:59 18:59 Intake Total 0 Balance 0 - Medications Medications: Current Medications Acetaminophen (Tylenol 325mg Tab) 650 mg PO Q6 PRN PRN Reason: Fever >100.4 F Last Admin: 07/31/17 15:03 Dose: 650 mg Heparin Sodium (Porcine) (Heparin) 5,000 units SC Q8 [facility] Last Admin: 07/31/17 14:40 Dose: 5,000 units Clindamycin Phosphate 600 mg/ (Sodium Chloride) 54 mls @ 100 mls/hr IVPB Q6H [facility] Last Admin: 07/31/17 14:00 Dose: 100 mls/hr Piperacillin Sod/Tazobactam (Sod 3.375 gm/ Sodium Chloride) 100 mls @ 200 mls/ hr IVPB Q8H [facility] Last Admin: 07/31/17 11:32 Dose: 200 mls/hr Sodium Chloride (Sodium Chloride 0.9%) 1,000 mls @ 150 mls/hr IV .Q6H40M [facility] Last Admin: 07/31/17 14:40 Dose: 150 mls/hr Insulin Aspart (Novolog Mix 70/30 (70/30 Units/Ml)) 25 units SC BIDAC [facility] Last Admin: 07/31/17 08:40 Dose: 25 units Insulin Human Regular (Novolin R) 0 unit SC ACHS [facility] PRN Reason: Protocol Last Admin: 07/31/17 13:30 Dose: 8 unit Ketorolac Tromethamine (Toradol) 30 mg IVP Q6 PRN PRN Reason: Pain, moderate (4-7) Lisinopril (Zestril) 5 mg PO DAILY [facility] Last Admin: 07/31/17 11:31 Dose: 5 mg Morphine Sulfate (Morphine) 4 mg IVP Q4 PRN PRN Reason: Pain, severe (8-10) Ondansetron HCl (Zofran Inj) 4 mg IVP Q6 [facility] Last Admin: 07/31/17 11:31 Dose: 4 mg Pantoprazole Sodium (Protonix Ec Tab) 40 mg PO DAILY [facility] Last Admin: 07/31/17 11:31 Dose: 40 mg - Labs Labs: 07/31/17 08:23 07/31/17 08:23 PT 13.9 SECONDS (9.7-12.2) H 07/30/17 18:33 INR 1.2 07/30/17 18:33 APTT 26 SECONDS (21-34) 07/30/17 18:33 - Constitutional Appears: Well, Non-toxic, No Acute Distress - Head Exam Head Exam: ATRAUMATIC, NORMAL INSPECTION, NORMOCEPHALIC - Eye Exam Eye Exam: EOMI - ENT Exam ENT Exam: Mucous Membranes Moist - Respiratory Exam Respiratory Exam: Clear to Ausculation Bilateral - Cardiovascular Exam Cardiovascular Exam: Tachycardia - GI/Abdominal Exam GI & Abdominal Exam: Soft, Normal Bowel Sounds. absent: Distended, Tenderness - Extremities Exam Extremities Exam: absent: Joint Swelling, Tenderness Additional comments: draining abscess on the right groin. - Back Exam Back Exam: absent: rash noted - Neurological Exam Neurological Exam: Alert, Awake, Oriented x3 - Psychiatric Exam Psychiatric exam: Normal Affect, Normal Mood - Skin Skin Exam: Dry, Intact, Normal Color, Warm Assessment and Plan - Assessment and Plan (Free Text) Assessment: Sepsis (Possibly 2/2 PNA) * Patient began to cough up blood and looked very toxic. Temp 103.3 and HR was 132, BP 172/82. Lactate was 4.1. Code sepsis was called. Abx and 3.5L fluid bolus were administered. Allan inserted. TLC placed. Repeat Vitals 3hrs later were stable and patient looked much more comfortable. N/V resolved. No more blood in sputum. Lactate down to 1.1. * TLC L.IJ * was given 3.5L Fluid Bolus * NS @ 150 * Clinda 600mg Q6 * Zosyn 3.3 IV Q8 * CXR - F/U * Chest CT - F/U * Lactate 4.1 --> 1.1 * Procalcitonin - 1.8 R. Groin Abscess * Surgery ([facility]) * Bedside I/D * Dressing change per surgery team * Clindamycin 600 mg Q6 * Zosyn 3.3 IV Q8 Hx DM * F/U HbA1c * Novalin 70/30 25 U BID AC * High Dose Insulin sliding scale * Accuchecks Hx HTN * Lisinopril 5mg PO QD Prophylaxis * Heparin * Protonix * Zofran PRN nausea <Miles,Peter H - Last Filed: 07/31/17 18:37> Objective - Vital Signs/Intake and Output Vital Signs (last 24 hours): Temp Pulse Resp BP Pulse Ox 99.8 F H 121 H 20 114/67 99 07/31/17 15:00 07/31/17 15:00 07/31/17 15:00 07/31/17 15:00 07/31/17 15:00 Intake and Output: 07/31/17 07/31/17 06:59 18:59 Intake Total 0 3050 Output Total 1400 Balance 0 1650 - Medications Medications: Current Medications Acetaminophen (Tylenol 325mg Tab) 650 mg PO Q6 PRN PRN Reason: Fever >100.4 F Last Admin: 07/31/17 15:03 Dose: 650 mg Heparin Sodium (Porcine) (Heparin) 5,000 units SC Q8 [facility] Last Admin: 07/31/17 14:40 Dose: 5,000 units Clindamycin Phosphate 600 mg/ (Sodium Chloride) 54 mls @ 100 mls/hr IVPB Q6H [facility] Last Admin: 07/31/17 17:29 Dose: 100 mls/hr Piperacillin Sod/Tazobactam (Sod 3.375 gm/ Sodium Chloride) 100 mls @ 200 mls/ hr IVPB Q8H [facility] Last Admin: 07/31/17 11:32 Dose: 200 mls/hr Sodium Chloride (Sodium Chloride 0.9%) 1,000 mls @ 150 mls/hr IV .Q6H40M [facility] Last Admin: 07/31/17 14:40 Dose: 150 mls/hr Insulin Aspart (Novolog Mix 70/30 (70/30 Units/Ml)) 25 units SC BIDAC [facility] Last Admin: 07/31/17 17:28 Dose: 25 units Insulin Human Regular (Novolin R) 0 unit SC ACHS [facility] PRN Reason: Protocol Last Admin: 07/31/17 17:28 Dose: 8 unit Ketorolac Tromethamine (Toradol) 30 mg IVP Q6 PRN PRN Reason: Pain, moderate (4-7) Lisinopril (Zestril) 5 mg PO DAILY [facility] Last Admin: 07/31/17 11:31 Dose: 5 mg Morphine Sulfate (Morphine) 4 mg IVP Q4 PRN PRN Reason: Pain, severe (8-10) Ondansetron HCl (Zofran Inj) 4 mg IVP Q6 [facility] Last Admin: 07/31/17 17:27 Dose: 4 mg Pantoprazole Sodium (Protonix Ec Tab) 40 mg PO DAILY [facility] Last Admin: 07/31/17 11:31 Dose: 40 mg - Labs Labs: 07/31/17 08:23 07/31/17 08:23 PT 13.9 SECONDS (9.7-12.2) H 07/30/17 18:33 INR 1.2 07/30/17 18:33 APTT 26 SECONDS (21-34) 07/30/17 18:33 Attending/Attestation - Attestation I have personally seen and examined this patient.: Yes I have fully participated in the care of the patient.: Yes I have reviewed all pertinent clinical information, including history, physical exam and plan: Yes Notes (Text): 07/31/17 18:35 Medical attending: Patient was seen and examined by me, agrees the above note by medical director occupational health. Earlier in the day when we came in examined him he had a very high fever, he felt very uncomfortable. We decided to get a VBG /shock panel and this showed that he had a very elevated lactic acid level. I asked the resident to start a code sepsis. He was given an additional bolus of intravenous fluids as well as orders were standing intravenous fluids to be run continuously. A Allan catheter was also started as well. We added on additional IV antibiotics. He had a small peripheral line in his right hand decided to place a central line for further access. I realize that he has pain in his femoral area likely secondary from an abscess or hidradenitis, however it seems that a source of his sepsis is more likely a recurrent pneumonia that he is having. We are collecting sputum cultures, also getting a CAT scan of the chest without contrast for further inspection. Later in the day we again repeated another VBG, and this showed that the lactic acid decreased substantially Thank you very much, James Miles
[2017-08-01] MEDS: Sodium Chloride 0.9% 1,000 ML IV SCH ×5 (01:50→22:14)
[2017-08-01] MEDS: Piperacillin/Tazobact 3.375 GM in Sodium Chloride 100 ML IVPB SCH ×3 (03:03→18:43)
[2017-08-01 07:57] LABS: BASO # 0.2 K/uL (0.0-0.2); BASO % 0.8 % (0.0-2.0); EOS # 0.2 K/uL (0.0-0.7); EOS % 1.2 % (0.0-4.0); HEMATOCRIT 32.5 % (35.0-51.0); LYMPH # 1.9 K/uL (1.0-4.3); LYMPH % 10.3 % (20.0-40.0); MEAN CELL VOLUME 82.8 fL (80.0-94.0); MEAN CORPUSCULAR HEMOGLOBIN 27.5 pg (27.0-31.0); MEAN CORPUSCULAR HGB CONC 33.1 g/dL (33.0-37.0); MEAN PLATELET VOLUME 8.6 fL (7.2-11.7); MONO # 2.1 K/uL (0.0-0.8); MONO % 11.2 % (0.0-10.0); RED CELL DISTRIBUTION WIDTH 13.2 % (11.5-14.5); WHITE BLOOD COUNT 18.4 K/uL (4.8-10.8)
--- NOTE | 2017-08-01 08:04 | CP.PCM.PN ---
<Delio Doss - Last Filed: 08/01/17 15:36> Subjective - Date & Time of Evaluation Date of Evaluation: 08/01/17 Time of Evaluation: 08:01 - Subjective Subjective: PGY1 Note for Dr. Miles HPI: Patient seen and examined at bedside. Doing well with no complaints at this time. Feeling much better. eating well. Sitting up in bed. at bedside. Denies N/V/D/SOB/CP/F. Was going to change from non rebreather to NC but patient prefers the mask. Objective - Vital Signs/Intake and Output Vital Signs (last 24 hours): Temp Pulse Resp BP Pulse Ox 98.8 F 81 16 127/76 99 07/31/17 23:00 07/31/17 23:00 07/31/17 23:00 07/31/17 23:00 07/31/17 23:00 Intake and Output: 08/01/17 08/01/17 06:59 18:59 Intake Total 2650 Output Total 2000 Balance 650 - Medications Medications: Current Medications Acetaminophen (Tylenol 325mg Tab) 650 mg PO Q6 PRN PRN Reason: Fever >100.4 F Last Admin: 07/31/17 15:03 Dose: 650 mg Heparin Sodium (Porcine) (Heparin) 5,000 units SC Q8 [facility] Last Admin: 08/01/17 06:03 Dose: 5,000 units Piperacillin Sod/Tazobactam (Sod 3.375 gm/ Sodium Chloride) 100 mls @ 200 mls/ hr IVPB Q8H [facility] Last Admin: 08/01/17 03:03 Dose: 200 mls/hr Sodium Chloride (Sodium Chloride 0.9%) 1,000 mls @ 150 mls/hr IV .Q6H40M [facility] Last Admin: 08/01/17 06:40 Dose: 150 mls/hr Insulin Aspart (Novolog Mix 70/30 (70/30 Units/Ml)) 25 units SC BIDAC [facility] Last Admin: 07/31/17 17:28 Dose: 25 units Insulin Human Regular (Novolin R) 0 unit SC ACHS [facility] PRN Reason: Protocol Last Admin: 07/31/17 22:25 Dose: 2 unit Ketorolac Tromethamine (Toradol) 30 mg IVP Q6 PRN PRN Reason: Pain, moderate (4-7) Lisinopril (Zestril) 5 mg PO DAILY [facility] Last Admin: 07/31/17 11:31 Dose: 5 mg Morphine Sulfate (Morphine) 4 mg IVP Q4 PRN PRN Reason: Pain, severe (8-10) Ondansetron HCl (Zofran Inj) 4 mg IVP Q6 [facility] Last Admin: 08/01/17 06:06 Dose: 4 mg Pantoprazole Sodium (Protonix Ec Tab) 40 mg PO DAILY [facility] Last Admin: 07/31/17 11:31 Dose: 40 mg - Labs Labs: 07/31/17 08:23 07/31/17 08:23 PT 13.9 SECONDS (9.7-12.2) H 07/30/17 18:33 INR 1.2 07/30/17 18:33 APTT 26 SECONDS (21-34) 07/30/17 18:33 - Constitutional Appears: Well, Non-toxic, No Acute Distress - Head Exam Head Exam: ATRAUMATIC, NORMAL INSPECTION, NORMOCEPHALIC - Eye Exam Eye Exam: EOMI Pupil Exam: NORMAL ACCOMODATION - ENT Exam ENT Exam: Mucous Membranes Moist - Neck Exam Additional comments: L. IJ TLC - Respiratory Exam Respiratory Exam: Rhonchi (globally), NORMAL BREATHING PATTERN - Cardiovascular Exam Cardiovascular Exam: REGULAR RHYTHM - GI/Abdominal Exam GI & Abdominal Exam: Soft, Normal Bowel Sounds. absent: Distended, Tenderness - Extremities Exam Extremities Exam: absent: Joint Swelling, Tenderness - Neurological Exam Neurological Exam: Alert, Awake, Oriented x3 - Psychiatric Exam Psychiatric exam: Normal Affect, Normal Mood - Skin Skin Exam: Dry, Intact, Normal Color, Warm Assessment and Plan - Assessment and Plan (Free Text) Assessment: Sepsis 2/2 PNA * TLC L.IJ * NS @ 150 * Zosyn 3.3 IV Q8 * CXR - No active Dz * Chest CT - Multilobar b/l pulm infiltrates, likely PNA * Lactate 4.1 --> 1.1 * Procalcitonin - 1.8 R. Groin Abscess * Surgery ([facility]) * Bedside I/D * Dressing change per surgery team * Wound culture - Beta hemolytic strep resistant to clinda * Zosyn 3.3 IV Q8 Hx DM * F/U HbA1c * Novalin 70/30 25 U BID AC * High Dose Insulin sliding scale * Accuchecks Hx HTN * Lisinopril 5mg PO QD Prophylaxis * Heparin * Protonix * Zofran PRN nausea <MilesPeter H - Last Filed: 08/01/17 17:50> Objective - Vital Signs/Intake and Output Vital Signs (last 24 hours): Temp Pulse Resp BP Pulse Ox 98.2 F 97 H 20 101/68 99 08/01/17 16:00 08/01/17 16:00 08/01/17 16:00 08/01/17 16:00 08/01/17 16:00 Intake and Output: 08/01/17 08/01/17 06:59 18:59 Intake Total 2650 1600 Output Total 2000 1000 Balance 650 600 - Medications Medications: Current Medications Acetaminophen (Tylenol 325mg Tab) 650 mg PO Q6 PRN PRN Reason: Fever >100.4 F Last Admin: 07/31/17 15:03 Dose: 650 mg Heparin Sodium (Porcine) (Heparin) 5,000 units SC Q8 [facility] Last Admin: 08/01/17 14:22 Dose: 5,000 units Piperacillin Sod/Tazobactam (Sod 3.375 gm/ Sodium Chloride) 100 mls @ 200 mls/ hr IVPB Q8H [facility] Last Admin: 08/01/17 11:40 Dose: 200 mls/hr Sodium Chloride (Sodium Chloride 0.9%) 1,000 mls @ 150 mls/hr IV .Q6H40M [facility] Last Admin: 08/01/17 15:12 Dose: 150 mls/hr Insulin Aspart (Novolog Mix 70/30 (70/30 Units/Ml)) 25 units SC BIDAC [facility] Last Admin: 08/01/17 17:26 Dose: 25 units Insulin Human Regular (Novolin R) 0 unit SC ACHS [facility] PRN Reason: Protocol Last Admin: 08/01/17 17:26 Dose: 6 unit Ketorolac Tromethamine (Toradol) 30 mg IVP Q6 PRN PRN Reason: Pain, moderate (4-7) Last Admin: 08/01/17 17:25 Dose: 30 mg Lisinopril (Zestril) 5 mg PO DAILY [facility] Last Admin: 08/01/17 09:54 Dose: 5 mg Morphine Sulfate (Morphine) 4 mg IVP Q4 PRN PRN Reason: Pain, severe (8-10) Ondansetron HCl (Zofran Inj) 4 mg IVP Q6 [facility] Last Admin: 08/01/17 17:26 Dose: 4 mg Pantoprazole Sodium (Protonix Ec Tab) 40 mg PO DAILY [facility] Last Admin: 08/01/17 09:54 Dose: 40 mg - Labs Labs: 08/01/17 07:41 08/01/17 07:41 PT 13.9 SECONDS (9.7-12.2) H 07/30/17 18:33 INR 1.2 07/30/17 18:33 APTT 26 SECONDS (21-34) 07/30/17 18:33 Attending/Attestation - Attestation I have personally seen and examined this patient.: Yes I have fully participated in the care of the patient.: Yes I have reviewed all pertinent clinical information, including history, physical exam and plan: Yes Notes (Text): 08/01/17 17:45 Medical Attending: Patient was seen and examined by me. Agree with the above note by the resident. The patient reported feeling much better than yesterday. He reported less fever and less coughing. He had an I and D of the groin area abbcess. His IV abx was changed, he was placed on continuous IVF, and now has a central line. Urine out put has been stable as well. Review of his blood work shows that the WBC is decreasing however not by much. continue to monitor WBC count as well as blood cultures and wound cultures. thank you James Miles
[2017-08-01 08:17] LABS: ALB/GLOB RATIO 0.8 (1.0-2.1); ALKALINE PHOSPHATASE 189 U/L (38-126); ALT/SGPT 34 U/L (21-72); AST/SGOT 34 U/L (17-59); BILIRUBIN,TOTAL 1.1 mg/dL (0.2-1.3); BLOOD UREA NITROGEN 9 mg/dL (9-20); CALCIUM 7.9 mg/dl (8.6-10.4); CARBON DIOXIDE 22 mmol/L (22-30); CHLORIDE 100 mmol/L (98-107); CHOLESTEROL 122 mg/dL (0-199); GFR AFRICAN-AMERICAN > 60; GLUCOSE,RANDOM 259 mg/dL (75-110); MAGNESIUM 1.8 mg/dL (1.6-2.3); PHOSPHOROUS 2.5 mg/dL (2.5-4.5); POTASSIUM 4.1 mmol/L (3.6-5.2); SODIUM 136 mmol/L (132-148); TOTAL PROTEIN 6.4 g/dL (6.3-8.3)
[2017-08-01] MEDS: (Novolin R) Insulin Human Regular 100 units/ml vial SC SCH ×4 (08:29→22:14)
[2017-08-01] MEDS: (Novolog Mix 70/30) Insulin Aspart/Insulin Aspar 100 units/ml SC SCH ×2 (08:30→17:26)
--- NOTE | 2017-08-01 09:42 | CP.PCM.PN ---
<RosanaEnzo - Last Filed: 08/01/17 10:49> Subjective - Date & Time of Evaluation Date of Evaluation: 08/01/17 Time of Evaluation: 10:49 - Subjective Subjective: Surgery Progress note. Dr. Srivastava Pt seen and examined at bedside. No acute events overnight. Patient states that he does feel some improvement at the R groin after procedure last night. Denies any F/C. No New complaints Objective - Vital Signs/Intake and Output Vital Signs (last 24 hours): Temp Pulse Resp BP Pulse Ox 98.7 F 107 H 20 106/69 99 08/01/17 08:00 08/01/17 08:00 08/01/17 08:00 08/01/17 08:00 08/01/17 08:00 Intake and Output: 08/01/17 08/01/17 06:59 18:59 Intake Total 2650 Output Total 2000 Balance 650 - Medications Medications: Current Medications Acetaminophen (Tylenol 325mg Tab) 650 mg PO Q6 PRN PRN Reason: Fever >100.4 F Last Admin: 07/31/17 15:03 Dose: 650 mg Heparin Sodium (Porcine) (Heparin) 5,000 units SC Q8 [facility] Last Admin: 08/01/17 06:03 Dose: 5,000 units Piperacillin Sod/Tazobactam (Sod 3.375 gm/ Sodium Chloride) 100 mls @ 200 mls/ hr IVPB Q8H [facility] Last Admin: 08/01/17 03:03 Dose: 200 mls/hr Sodium Chloride (Sodium Chloride 0.9%) 1,000 mls @ 150 mls/hr IV .Q6H40M [facility] Last Admin: 08/01/17 08:52 Dose: Not Given Insulin Aspart (Novolog Mix 70/30 (70/30 Units/Ml)) 25 units SC BIDAC [facility] Last Admin: 08/01/17 08:30 Dose: 25 units Insulin Human Regular (Novolin R) 0 unit SC ACHS [facility] PRN Reason: Protocol Last Admin: 08/01/17 08:29 Dose: 6 unit Ketorolac Tromethamine (Toradol) 30 mg IVP Q6 PRN PRN Reason: Pain, moderate (4-7) Lisinopril (Zestril) 5 mg PO DAILY [facility] Last Admin: 09/09/17 11:31 Dose: 5 mg Morphine Sulfate (Morphine) 4 mg IVP Q4 PRN PRN Reason: Pain, severe (8-10) Ondansetron HCl (Zofran Inj) 4 mg IVP Q6 [facility] Last Admin: 08/01/17 06:06 Dose: 4 mg Pantoprazole Sodium (Protonix Ec Tab) 40 mg PO DAILY [facility] Last Admin: 07/31/17 11:31 Dose: 40 mg - Labs Labs: 08/01/17 07:41 08/01/17 07:41 PT 13.9 SECONDS (9.7-12.2) H 07/30/17 18:33 INR 1.2 07/30/17 18:33 APTT 26 SECONDS (21-34) 07/30/17 18:33 - Constitutional Appears: Well, No Acute Distress - Head Exam Head Exam: ATRAUMATIC, NORMAL INSPECTION, NORMOCEPHALIC - Eye Exam Eye Exam: EOMI - Respiratory Exam Respiratory Exam: absent: Respiratory Distress - GI/Abdominal Exam GI & Abdominal Exam: Soft. absent: Guarding, Rigid, Tenderness - Neurological Exam Neurological Exam: Alert, Awake, Oriented x3 - Skin Additional comments: Right Groin packing and dressing changed. Skin still indurated. Drainage noted on previous bandage. Assessment and Plan - Assessment and Plan (Free Text) Assessment: 46yo M with Pneumonia and R groin abscess. S/p Right Groin I&D on 07/31/17. - Currently afebrile. Last Febrile at 3PM yesterday: 99.8F - Leukocytosis mildly improved - CT Chest noted. Likely pneumonia - Wound Cx: Gram Pos Cocci in chains. Awaiting sensitivity - Continue Abx - f/u finalized Wound Cx results - Continue to maximize medically. PNA management as per medical team. - Pain managemetnt - Continue to provide warm compresses to affected area - Encourage IS - Tolerating diet - AM Labs Further recs as per Dr. Atif Wayne PGY1 surgery pager: [phone] <Stefan Srivastava - Last Filed: 08/01/17 21:19> Objective - Vital Signs/Intake and Output Vital Signs (last 24 hours): Temp Pulse Resp BP Pulse Ox 98.2 F 97 H 20 101/68 99 08/01/17 16:00 08/01/17 16:00 08/01/17 16:00 08/01/17 16:00 08/01/17 16:00 Intake and Output: 08/01/17 08/02/17 18:59 06:59 Intake Total 1600 Output Total 1000 Balance 600 - Medications Medications: Current Medications Acetaminophen (Tylenol 325mg Tab) 650 mg PO Q6 PRN PRN Reason: Fever >100.4 F Last Admin: 07/31/17 15:03 Dose: 650 mg Benzonatate (Tessalon Perles) 100 mg PO TID [facility] Heparin Sodium (Porcine) (Heparin) 5,000 units SC Q8 [facility] Last Admin: 08/01/17 14:22 Dose: 5,000 units Piperacillin Sod/Tazobactam (Sod 3.375 gm/ Sodium Chloride) 100 mls @ 200 mls/ hr IVPB Q8H [facility] Last Admin: 08/01/17 18:43 Dose: 200 mls/hr Sodium Chloride (Sodium Chloride 0.9%) 1,000 mls @ 150 mls/hr IV .Q6H40M [facility] Last Admin: 08/01/17 15:12 Dose: 150 mls/hr Insulin Aspart (Novolog Mix 70/30 (70/30 Units/Ml)) 25 units SC BIDAC [facility] Last Admin: 08/01/17 17:26 Dose: 25 units Insulin Human Regular (Novolin R) 0 unit SC ACHS [facility] PRN Reason: Protocol Last Admin: 08/01/17 17:26 Dose: 6 unit Ketorolac Tromethamine (Toradol) 30 mg IVP Q6 PRN PRN Reason: Pain, moderate (4-7) Last Admin: 08/01/17 17:25 Dose: 30 mg Lisinopril (Zestril) 5 mg PO DAILY [facility] Last Admin: 08/01/17 09:54 Dose: 5 mg Morphine Sulfate (Morphine) 4 mg IVP Q4 PRN PRN Reason: Pain, severe (8-10) Ondansetron HCl (Zofran Inj) 4 mg IVP Q6 [facility] Last Admin: 08/01/17 17:26 Dose: 4 mg Pantoprazole Sodium (Protonix Ec Tab) 40 mg PO DAILY [facility] Last Admin: 08/01/17 09:54 Dose: 40 mg - Labs Labs: 08/01/17 07:41 08/01/17 07:41 PT 13.9 SECONDS (9.7-12.2) H 07/30/17 18:33 INR 1.2 07/30/17 18:33 APTT 26 SECONDS (21-34) 07/30/17 18:33 Attending/Attestation - Attestation I have personally seen and examined this patient.: Yes I have fully participated in the care of the patient.: Yes I have reviewed all pertinent clinical information, including history, physical exam and plan: Yes Notes (Text): 08/01/17 21:19 Pt was seen and examined at bedside Agree with above note and assessment
--- NOTE | 2017-08-01 09:44 | CT ---
PROCEDURE: CT Chest without contrast HISTORY: PNA COMPARISON: None. TECHNIQUE: Contiguous axial images were obtained through the chest without intravenous contrast enhancement. Sagittal and coronal reconstructions were performed. Radiation dose (DLP): 882.49 mGy-cm. This CT exam was performed using one or more of the following dose reduction techniques: Automated exposure control, adjustment of the mA and/or kV according to patient size, and/or use of iterative reconstruction technique. FINDINGS: LUNGS: Multi lobar infiltrates. Posterior segment right upper lobe, apical posterior segment left upper lobe and diffuse bilateral lower lobe infiltrates are present. Infectious versus inflammatory etiology. . MEDIASTINUM: Unremarkable thoracic aorta. No aneurysm. Normal sized heart. Main pulmonary artery unremarkable. No vascular congestion. No lymphadenopathy. Left internal jugular central venous catheter terminates at the junction of the superior vena cava and left brachiocephalic vein. PLEURA: No pleural fluid. No pneumothorax. BONES: No fracture. No destructive lesion. UPPER ABDOMEN: Grossly unremarkable. OTHER FINDINGS: None. IMPRESSION: Multi lobar bilateral pulmonary infiltrates. Likely pneumonia.
[2017-08-01] MEDS: Pantoprazole 40 mg EC Tab PO SCH (09:54)
--- NOTE | 2017-08-02 00:30 | OP ---
PROCEDURE DATE: 07/31/2017 PREOPERATIVE DIAGNOSES: 1. Right groin abscess and cellulitis. 2. Pneumonia. 3. Sepsis. POSTOPERATIVE DIAGNOSES: 1. Right groin abscess and cellulitis. 2. Pneumonia. 3. Sepsis. PROCEDURE DONE: 1. Incision and drainage of right groin abscess approximately 5 x 3 cm size. 2. Excisional debridement of the abscess wound 5 x 3 cm size. SURGEON: Dr. Srivastava. MANAGER HYDRAULIC: Sandra Mustafa, PGY3 resident. TYPE OF ANESTHESIA: Local anesthesia. ESTIMATED BLOOD LOSS: Around 10 mL. DRAIN: None in pathology. SPECIMEN: The pus was sent for a culture and sensitivity. COMPLICATIONS: None. INTRAOPERATIVE FINDINGS: The patient had approximately 5 x 4 cm abscess of the right groin and the patient also had necrotic tissue that was debrided. DESCRIPTION OF PROCEDURE: On intraoperative steps, this 46-year-old male was diagnosed with a right groin abscess and the patient also had sepsis due to pneumonia and the patient was consented for the insulin and drainage at the bedside after consenting, prepping, and draping of the right groin was done under sterile condition and the local anesthesia was injected. The transverse 5 cm incision was made after an incising skin and subcutaneous tissue, the abscess cavity was entered and incision was converted into cruciate shape incision. The abscess cavity was entered debrided and possible drain. Pus was sent for a culture and sensitivity. Now the blunt and sharp dissection was done due to the debridement of the wound and the wound was packed with gauze and hemostasis was achieved. The dry sterile dressing was applied. The patient tolerated the procedure. Count of the instruments was correct. There was no apparent complication. Stefan Srivastava MD
[2017-08-02] MEDS: Morphine 4 MG/ML VIAL IVP PRN ×2 (00:35→16:28)
[2017-08-02] MEDS: Sodium Chloride 0.9% 1,000 ML IV SCH ×5 (00:40→18:32)
[2017-08-02] MEDS: Piperacillin/Tazobact 3.375 GM in Sodium Chloride 100 ML IVPB SCH ×3 (03:04→19:45)
[2017-08-02 07:15] LABS: BASO # 0.1 K/uL (0.0-0.2); BASO % 0.9 % (0.0-2.0); EOS # 0.9 K/uL (0.0-0.7); EOS % 5.7 % (0.0-4.0); HEMATOCRIT 31.6 % (35.0-51.0); LYMPH # 1.6 K/uL (1.0-4.3); LYMPH % 10.5 % (20.0-40.0); MEAN CELL VOLUME 82.5 fL (80.0-94.0); MEAN CORPUSCULAR HEMOGLOBIN 27.5 pg (27.0-31.0); MEAN CORPUSCULAR HGB CONC 33.3 g/dL (33.0-37.0); MEAN PLATELET VOLUME 8.3 fL (7.2-11.7); MONO # 1.5 K/uL (0.0-0.8); MONO % 9.3 % (0.0-10.0); RED CELL DISTRIBUTION WIDTH 13.2 % (11.5-14.5); WHITE BLOOD COUNT 15.6 K/uL (4.8-10.8)
[2017-08-02] MEDS: Albuterol-Ipratrop 3 mg / 0.5 (3 ml) UD INH SCH (07:19)
[2017-08-02] MEDS ORDERED: DiphenhydrAMINE 50 mg/ml Inj IVP STA (07:25)
[2017-08-02] MEDS: (Novolin R) Insulin Human Regular 100 units/ml vial SC SCH ×4 (07:50→23:25)
[2017-08-02] MEDS: (Novolog Mix 70/30) Insulin Aspart/Insulin Aspar 100 units/ml SC SCH ×2 (07:50→17:30)
[2017-08-02 07:52] LABS: CHLORIDE 103 mmol/L (98-107); POTASSIUM 4.2 mmol/L (3.6-5.2); SODIUM 135 mmol/L (132-148)
[2017-08-02 07:54] LABS: AST/SGOT 19 U/L (17-59); BILIRUBIN,TOTAL 0.6 mg/dL (0.2-1.3); CARBON DIOXIDE 22 mmol/L (22-30); GFR AFRICAN-AMERICAN > 60
[2017-08-02 07:55] LABS: ALB/GLOB RATIO 0.7 (1.0-2.1); ALKALINE PHOSPHATASE 151 U/L (38-126); ALT/SGPT 25 U/L (21-72); BLOOD UREA NITROGEN 9 mg/dL (9-20); CALCIUM 8.1 mg/dl (8.6-10.4); GLUCOSE,RANDOM 188 mg/dL (75-110); MAGNESIUM 1.8 mg/dL (1.6-2.3); PHOSPHOROUS 2.2 mg/dL (2.5-4.5); TOTAL PROTEIN 6.8 g/dL (6.3-8.3)
--- NOTE | 2017-08-02 08:04 | CP.PCM.PN ---
<BurtonEmeka - Last Filed: 08/02/17 08:01> Subjective - Date & Time of Evaluation Date of Evaluation: 08/02/17 Time of Evaluation: 08:03 - Subjective Subjective: Surgery Pt s&e. ANGIE. Dressing changed this AM. c/o R groin pain. Coughing. MIld SOB. Denies CP Objective - Vital Signs/Intake and Output Vital Signs (last 24 hours): Temp Pulse Resp BP Pulse Ox 98.8 F 71 16 133/76 97 08/01/17 23:00 08/01/17 23:00 08/01/17 23:00 08/01/17 23:00 08/01/17 23:00 Intake and Output: 08/02/17 08/02/17 06:59 18:59 Intake Total 2595 Output Total 1250 Balance 1345 - Medications Medications: Current Medications Acetaminophen (Tylenol 325mg Tab) 650 mg PO Q6 PRN PRN Reason: Fever >100.4 F Last Admin: 07/31/17 15:03 Dose: 650 mg Benzonatate (Tessalon Perles) 100 mg PO TID [facility] Last Admin: 08/01/17 21:30 Dose: 100 mg Heparin Sodium (Porcine) (Heparin) 5,000 units SC Q8 [facility] Last Admin: 08/02/17 06:05 Dose: 5,000 units Piperacillin Sod/Tazobactam (Sod 3.375 gm/ Sodium Chloride) 100 mls @ 200 mls/ hr IVPB Q8H [facility] Last Admin: 08/02/17 03:04 Dose: 200 mls/hr Sodium Chloride (Sodium Chloride 0.9%) 1,000 mls @ 150 mls/hr IV .Q6H40M [facility] Last Admin: 08/02/17 04:30 Dose: Not Given Insulin Aspart (Novolog Mix 70/30 (70/30 Units/Ml)) 25 units SC BIDAC [facility] Last Admin: 08/02/17 07:50 Dose: 25 units Insulin Human Regular (Novolin R) 0 unit SC ACHS [facility] PRN Reason: Protocol Last Admin: 08/02/17 07:50 Dose: 4 unit Ketorolac Tromethamine (Toradol) 30 mg IVP Q6 PRN PRN Reason: Pain, moderate (4-7) Last Admin: 08/01/17 17:25 Dose: 30 mg Lisinopril (Zestril) 5 mg PO DAILY [facility] Last Admin: 08/01/17 09:54 Dose: 5 mg Morphine Sulfate (Morphine) 4 mg IVP Q4 PRN PRN Reason: Pain, severe (8-10) Last Admin: 08/02/17 00:35 Dose: 4 mg Ondansetron HCl (Zofran Inj) 4 mg IVP Q6 [facility] Last Admin: 08/02/17 06:09 Dose: 4 mg Pantoprazole Sodium (Protonix Ec Tab) 40 mg PO DAILY [facility] Last Admin: 08/01/17 09:54 Dose: 40 mg - Labs Labs: 08/02/17 07:04 08/02/17 07:04 PT 13.9 SECONDS (9.7-12.2) H 07/30/17 18:33 INR 1.2 07/30/17 18:33 APTT 26 SECONDS (21-34) 07/30/17 18:33 - Constitutional Appears: No Acute Distress - Head Exam Head Exam: ATRAUMATIC, NORMAL INSPECTION, NORMOCEPHALIC - Eye Exam Eye Exam: EOMI, Normal appearance, PERRL Pupil Exam: NORMAL ACCOMODATION, PERRL - ENT Exam ENT Exam: Mucous Membranes Moist - Neck Exam Neck Exam: Full ROM, Normal Inspection. absent: Lymphadenopathy - Respiratory Exam Respiratory Exam: absent: NORMAL BREATHING PATTERN - Cardiovascular Exam Cardiovascular Exam: REGULAR RHYTHM, +S1, +S2. absent: Murmur - GI/Abdominal Exam GI & Abdominal Exam: Soft, Normal Bowel Sounds. absent: Distended, Firm, Guarding, Tenderness - Exam Exam: NORMAL INSPECTION - Extremities Exam Extremities Exam: Full ROM, Normal Capillary Refill. absent: Joint Swelling, Pedal Edema Additional comments: R GROIN. TTP. 3cm incision. Minimal drainage. Dressing changed. - Back Exam Back Exam: NORMAL INSPECTION - Neurological Exam Neurological Exam: Alert, Awake, CN II-XII Intact, Normal Gait, Oriented x3 - Psychiatric Exam Psychiatric exam: Normal Affect, Normal Mood - Skin Skin Exam: Dry, Erythema, Warm Assessment and Plan - Assessment and Plan (Free Text) Assessment: POD 2 sp I&D of R groin ABX Medical management We will follow Will MIRA Srivastava <Stefan Srivastava - Last Filed: 08/03/17 16:04> Objective - Vital Signs/Intake and Output Vital Signs (last 24 hours): Temp Pulse Resp BP Pulse Ox 97.5 F L 106 H 20 125/75 93 L 08/03/17 10:24 08/03/17 10:24 08/03/17 10:24 08/03/17 12:33 08/03/17 10:24 Intake and Output: 08/03/17 08/03/17 06:59 18:59 Intake Total 1125 1540 Output Total 2700 700 Balance -1575 840 - Medications Medications: Current Medications Acetaminophen (Tylenol 325mg Tab) 650 mg PO Q6 PRN PRN Reason: Fever >100.4 F Last Admin: 08/03/17 05:11 Dose: 650 mg Albuterol/Ipratropium (Duoneb 3 Mg/0.5 Mg (3 Ml) Ud) 3 ml INH RQ6 [facility] Last Admin: 08/03/17 13:13 Dose: 3 ml Benzonatate (Tessalon Perles) 100 mg PO TID [facility] Last Admin: 08/03/17 13:32 Dose: Not Given Calcium Acetate (Phoslo) 667 mg PO TIDCC [facility] Last Admin: 08/03/17 11:56 Dose: 667 mg Diphenhydramine HCl (Benadryl) 25 mg IVP Q6H PRN PRN Reason: Itching / Pruritus Last Admin: 08/03/17 01:45 Dose: 25 mg Docusate Sodium (Colace) 100 mg PO TID [facility] Last Admin: 08/03/17 13:32 Dose: Not Given Enoxaparin Sodium (Lovenox) 40 mg SC DAILY [facility] Last Admin: 08/03/17 11:56 Dose: 40 mg Furosemide (Lasix) 40 mg IVP DAILY [facility] Last Admin: 08/03/17 12:33 Dose: 40 mg Piperacillin Sod/Tazobactam (Sod 3.375 gm/ Sodium Chloride) 100 mls @ 200 mls/ hr IVPB Q8H [facility] Last Admin: 08/03/17 11:56 Dose: 200 mls/hr Vancomycin HCl 1,400 mg/ (Sodium Chloride) 500 mls @ 250 mls/hr IVPB Q12H [facility] Last Admin: 08/03/17 13:31 Dose: 250 mls/hr Insulin Aspart (Novolog) 10 unit SC TIDAC [facility] Insulin Glargine (Lantus) 30 unit SC HS [facility] Insulin Human Regular (Novolin R) 0 unit SC ACHS [facility] PRN Reason: Protocol Last Admin: 08/03/17 12:17 Dose: 12 unit Lisinopril (Zestril) 5 mg PO DAILY [facility] Last Admin: 08/03/17 11:56 Dose: 5 mg Magnesium Chloride (Slow-Mag) 64 mg PO DAILY [facility] Morphine Sulfate (Morphine) 4 mg IVP Q4 PRN PRN Reason: Pain, severe (8-10) Last Admin: 08/02/17 16:28 Dose: 4 mg Ondansetron HCl (Zofran Inj) 4 mg IVP Q6 [facility] Last Admin: 08/03/17 12:01 Dose: Not Given Pantoprazole Sodium (Protonix Ec Tab) 40 mg PO DAILY [facility] Last Admin: 08/03/17 11:56 Dose: 40 mg Potassium Chloride (K-Dur 20 Meq Er Tab) 20 meq PO DAILY [facility] Last Admin: 08/03/17 12:33 Dose: 20 meq - Labs Labs: 08/03/17 06:45 08/03/17 06:45 PT 13.9 SECONDS (9.7-12.2) H 07/30/17 18:33 INR 1.2 07/30/17 18:33 APTT 26 SECONDS (21-34) 07/30/17 18:33 Attending/Attestation - Attestation I have personally seen and examined this patient.: Yes I have fully participated in the care of the patient.: Yes I have reviewed all pertinent clinical information, including history, physical exam and plan: Yes Notes (Text): 08/03/17 16:04 Pt was seen and examined at bedside Agree with above note and assessment Local wound care c/w IV antibiotics
[2017-08-02] MEDS: Pantoprazole 40 mg EC Tab PO SCH (09:41)
[2017-08-02] MEDS ORDERED: Albuterol-Ipratrop 3 mg / 0.5 (3 ml) UD INH STA (09:50)
--- NOTE | 2017-08-02 10:12 | CP.PCM.PN ---
<Radha Jones - Last Filed: 08/02/17 16:22> Subjective - Date & Time of Evaluation Date of Evaluation: 08/02/17 Time of Evaluation: 07:00 - Subjective Subjective: PGY-1- Medicine Note- Dr. Hickman's service Patient states that he is "doing better" but with complaint of a cough. Patient states that he feels like "stuff is stuck in my chest" and is hard to cough out with SOB. Patient showed recent sputum which was clear and stated that he is no longer coughing up white sputum. Patient still on non-rebreather. Patient also states that he has not had a bowel movement in a few days because "he doesn't feel like going". Patient states that his right groin cellulitis is improving and no longer painful. Patient denies fever, chills, nausea, vomiting, headache , chest pain, abdominal pain, diarrhea. Objective - Vital Signs/Intake and Output Vital Signs (last 24 hours): Temp Pulse Resp BP Pulse Ox 98.8 F 71 16 133/76 97 08/01/17 23:00 08/01/17 23:00 08/01/17 23:00 08/01/17 23:00 08/01/17 23:00 Intake and Output: 08/02/17 08/02/17 06:59 18:59 Intake Total 2595 Output Total 1250 Balance 1345 - Medications Medications: Current Medications Acetaminophen (Tylenol 325mg Tab) 650 mg PO Q6 PRN PRN Reason: Fever >100.4 F Last Admin: 07/31/17 15:03 Dose: 650 mg Benzonatate (Tessalon Perles) 100 mg PO TID [facility] Last Admin: 08/02/17 09:43 Dose: 100 mg Docusate Sodium (Colace) 100 mg PO TID [facility] Last Admin: 08/02/17 09:42 Dose: 100 mg Heparin Sodium (Porcine) (Heparin) 5,000 units SC Q8 [facility] Last Admin: 08/02/17 06:05 Dose: 5,000 units Piperacillin Sod/Tazobactam (Sod 3.375 gm/ Sodium Chloride) 100 mls @ 200 mls/ hr IVPB Q8H [facility] Last Admin: 08/02/17 03:04 Dose: 200 mls/hr Sodium Chloride (Sodium Chloride 0.9%) 1,000 mls @ 150 mls/hr IV .Q6H40M [facility] Last Admin: 08/02/17 08:44 Dose: 150 mls/hr Insulin Aspart (Novolog Mix 70/30 (70/30 Units/Ml)) 25 units SC BIDAC [facility] Last Admin: 08/02/17 07:50 Dose: 25 units Insulin Human Regular (Novolin R) 0 unit SC ACHS [facility] PRN Reason: Protocol Last Admin: 08/02/17 07:50 Dose: 4 unit Lisinopril (Zestril) 5 mg PO DAILY [facility] Last Admin: 08/02/17 09:41 Dose: 5 mg Morphine Sulfate (Morphine) 4 mg IVP Q4 PRN PRN Reason: Pain, severe (8-10) Last Admin: 08/02/17 00:35 Dose: 4 mg Ondansetron HCl (Zofran Inj) 4 mg IVP Q6 [facility] Last Admin: 08/02/17 06:09 Dose: 4 mg Pantoprazole Sodium (Protonix Ec Tab) 40 mg PO DAILY [facility] Last Admin: 08/02/17 09:41 Dose: 40 mg - Labs Labs: 08/02/17 07:04 08/02/17 07:04 PT 13.9 SECONDS (9.7-12.2) H 07/30/17 18:33 INR 1.2 07/30/17 18:33 APTT 26 SECONDS (21-34) 07/30/17 18:33 - Constitutional Appears: Toxic, No Acute Distress - Head Exam Head Exam: ATRAUMATIC, NORMAL INSPECTION, NORMOCEPHALIC - Eye Exam Eye Exam: EOMI, Normal appearance - ENT Exam ENT Exam: Mucous Membranes Moist - Neck Exam Neck Exam: Full ROM. absent: Lymphadenopathy, Tenderness - Respiratory Exam Respiratory Exam: Rales, Wheezes - Cardiovascular Exam Cardiovascular Exam: Tachycardia, REGULAR RHYTHM. absent: Gallop, Rubs, Murmur - GI/Abdominal Exam GI & Abdominal Exam: Soft, Normal Bowel Sounds - Exam Additional comments: right groin abscess, packed with clean , dry, intact dressing - Extremities Exam Extremities Exam: Full ROM, Normal Inspection - Neurological Exam Neurological Exam: Alert, Awake, Oriented x3 - Psychiatric Exam Psychiatric exam: Normal Affect, Normal Mood - Skin Skin Exam: Intact, Normal Color, Warm Assessment and Plan - Assessment and Plan (Free Text) Assessment: Sepsis 2/2 PNA * WBC on 08/02 decreased from 18.4 to 15.6 * TLC L.IJ * NS @ 150 * Zosyn 3.3 IV Q8 * Vancomycin 1gm q12h (started on 08/02) * CXR - No active Dz * Chest CT - Multilobar b/l pulm infiltrates, likely PNA * Lactate 4.1 --> 1.1 * Procalcitonin - 1.8 * duoneb treatments q6h * ICU consulted, Dr. Denis, help appreciated * Pulm consulted, Dr. Galan, help appreciated * ID consulted, Dr. Patel, help appreciated * ABG on 08/02: pCO2: 30, pO2: 44, pH: 7.48 * Cxray on 08/02: * f/u HIV and Hep panel * patient transferred to telemetry floor on 08/02 for tachycardia R. Groin Abscess * Surgery ([facility]) * Bedside I/D * Dressing change per surgery team * Wound culture - Beta hemolytic strep resistant to clinda * Zosyn 3.3 IV Q8 Hx DM * HbA1c: 9.9 * Novalin 70/30 30 U BID AC (increased from 25 on 08/02/17) * High Dose Insulin sliding scale * Accuchecks Hx HTN * Lisinopril 5mg PO QD Prophylaxis * Heparin * Protonix * Zofran PRN nausea <Maximiliano Hickman M - Last Filed: 08/02/17 17:14> Objective - Vital Signs/Intake and Output Vital Signs (last 24 hours): Temp Pulse Resp BP Pulse Ox 97.8 F 109 H 20 143/84 98 08/02/17 15:00 08/02/17 15:00 08/02/17 15:00 08/02/17 15:00 08/02/17 15:00 Intake and Output: 08/02/17 08/02/17 06:59 18:59 Intake Total 2595 Output Total 1250 1400 Balance 1345 -1400 - Medications Medications: Current Medications Acetaminophen (Tylenol 325mg Tab) 650 mg PO Q6 PRN PRN Reason: Fever >100.4 F Last Admin: 07/31/17 15:03 Dose: 650 mg Albuterol/Ipratropium (Duoneb 3 Mg/0.5 Mg (3 Ml) Ud) 3 ml INH RQ6 [facility] Benzonatate (Tessalon Perles) 100 mg PO TID [facility] Last Admin: 08/02/17 14:39 Dose: 100 mg Diphenhydramine HCl (Benadryl) 25 mg IVP Q6H PRN PRN Reason: Itching / Pruritus Docusate Sodium (Colace) 100 mg PO TID [facility] Last Admin: 08/02/17 14:39 Dose: 100 mg Heparin Sodium (Porcine) (Heparin) 5,000 units SC Q8 [facility] Last Admin: 08/02/17 16:38 Dose: Not Given Piperacillin Sod/Tazobactam (Sod 3.375 gm/ Sodium Chloride) 100 mls @ 200 mls/ hr IVPB Q8H [facility] Last Admin: 08/02/17 11:33 Dose: 200 mls/hr Sodium Chloride (Sodium Chloride 0.9%) 1,000 mls @ 150 mls/hr IV .Q6H40M [facility] Last Admin: 08/02/17 14:00 Dose: Not Given Vancomycin/Sodium Chloride (Vancocin) 1 gm in 200 mls @ 133.333 mls/hr IVPB Q12H [facility] Stop: 08/07/17 14:31 Last Admin: 08/02/17 14:39 Dose: 133.333 mls/hr Insulin Aspart (Novolog Mix 70/30 (70/30 Units/Ml)) 30 units SC BIDAC [facility] Insulin Human Regular (Novolin R) 0 unit SC ACHS [facility] PRN Reason: Protocol Last Admin: 08/02/17 12:26 Dose: 6 unit Lisinopril (Zestril) 5 mg PO DAILY [facility] Last Admin: 08/02/17 09:41 Dose: 5 mg Morphine Sulfate (Morphine) 4 mg IVP Q4 PRN PRN Reason: Pain, severe (8-10) Last Admin: 08/02/17 16:28 Dose: 4 mg Ondansetron HCl (Zofran Inj) 4 mg IVP Q6 [facility] Last Admin: 08/02/17 11:33 Dose: 4 mg Pantoprazole Sodium (Protonix Ec Tab) 40 mg PO DAILY [facility] Last Admin: 08/02/17 09:41 Dose: 40 mg - Labs Labs: 08/02/17 07:04 08/02/17 07:04 PT 13.9 SECONDS (9.7-12.2) H 07/30/17 18:33 INR 1.2 07/30/17 18:33 APTT 26 SECONDS (21-34) 07/30/17 18:33 Attending/Attestation - Attestation I have personally seen and examined this patient.: Yes I have fully participated in the care of the patient.: Yes I have reviewed all pertinent clinical information, including history, physical exam and plan: Yes Notes (Text): 08/02/17 16:56 Patient was seen and examined at bedside with the resident Patient appears tachypneic and tachycardic ABG and chest x-ray results noted. We will obtain an echocardiogram. We will add vancomycin to antibiotic regimen. We will request an ID and pulmonary evaluation for the patient. I discussed with the ICU attending. Plan for transfer to telemetry for now. Monitor closely. I discussed the plan of care with the resident and agree with the assessment and plan documented
[2017-08-02] MEDS ORDERED: Moxifloxacin IV 400mg/250ml NS 400 MG/250 ML BAG IVPB SCH (11:45)
[2017-08-02 12:32] LABS: ABG ALLEN TEST PO; DRAW SITE RRA
--- NOTE | 2017-08-02 14:34 | RAD ---
Chest x-ray single frontal view History: Shortness of breath. Comparison: 07/31/2017 Findings: Prominent diffuse increased interstitial lung markings throughout both lungs suggestive for edema and or infiltrate. Patchy airspace opacification within the mid to lower lung zones bilaterally with small bilateral pleural effusions. Cardiomegaly. Right midlung atelectasis. Left central venous catheter tip extending to the confluence of the right brachiocephalic/SVC junction. Cardiomegaly. Degenerative changes in the spine with paravertebral osteophytes. Impression: Prominent diffuse increased interstitial lung markings throughout both lungs suggestive for edema and or infiltrate. Patchy airspace opacification within the mid to lower lung zones bilaterally with small bilateral pleural effusions. Cardiomegaly. Right midlung atelectasis. Left central venous catheter tip extending to the confluence of the right brachiocephalic/SVC junction. Cardiomegaly.
[2017-08-02] MEDS: Vancomycin 1 gm/NS 200 ml 1 GM/200 ML BAG IVPB SCH (14:39)
[2017-08-02 15:51] VITALS: RESP 20
[2017-08-02] MEDS: DiphenhydrAMINE 50 mg/ml Inj IVP PRN (18:45)
--- NOTE | 2017-08-02 21:20 | CP.PCM.CON ---
History of Present Illness - History of Present Illness History of Present Illness: dictated Past Patient History - Infectious Disease Hx of Infectious Diseases: None - Past Social History Smoking Status: Former Smoker Cigar Use: No Alcohol: None Drugs: Denies - ENDOCRINE/METABOLIC Hx Endocrine Disorders: Yes Hx Diabetes Mellitus Type 2: Yes - MUSCULOSKELETAL/RHEUMATOLOGICAL Hx Falls: No - PSYCHIATRIC Hx Substance Use: No - SURGICAL HISTORY Hx Surgeries: No - ANESTHESIA Hx Anesthesia: No Meds Allergies/Adverse Reactions: Allergies Allergy/AdvReac Type Severity Reaction Status Date / Time No Known Allergies Allergy Verified 07/30/17 17:01 - Medications Medications: Current Medications Acetaminophen (Tylenol 325mg Tab) 650 mg PO Q6 PRN PRN Reason: Fever >100.4 F Last Admin: 07/31/17 15:03 Dose: 650 mg Albuterol/Ipratropium (Duoneb 3 Mg/0.5 Mg (3 Ml) Ud) 3 ml INH RQ6 [facility] Benzonatate (Tessalon Perles) 100 mg PO TID [facility] Last Admin: 08/02/17 18:32 Dose: 100 mg Diphenhydramine HCl (Benadryl) 25 mg IVP Q6H PRN PRN Reason: Itching / Pruritus Last Admin: 08/02/17 18:45 Dose: 25 mg Docusate Sodium (Colace) 100 mg PO TID [facility] Last Admin: 08/02/17 18:32 Dose: 100 mg Enoxaparin Sodium (Lovenox) 100 mg SC Q12 [facility] Piperacillin Sod/Tazobactam (Sod 3.375 gm/ Sodium Chloride) 100 mls @ 200 mls/ hr IVPB Q8H [facility] Last Admin: 08/02/17 19:45 Dose: 200 mls/hr Vancomycin/Sodium Chloride (Vancocin) 1 gm in 200 mls @ 133.333 mls/hr IVPB Q12H [facility] Stop: 08/07/17 14:31 Last Admin: 08/02/17 14:39 Dose: 133.333 mls/hr Sodium Chloride (Sodium Chloride 0.9%) 1,000 mls @ 75 mls/hr IV .[id number] [facility] Last Admin: 08/02/17 18:32 Dose: 75 mls/hr Insulin Aspart (Novolog Mix 70/30 (70/30 Units/Ml)) 30 units SC BIDAC [facility] Last Admin: 08/02/17 17:30 Dose: 30 units Insulin Human Regular (Novolin R) 0 unit SC ACHS [facility] PRN Reason: Protocol Last Admin: 08/02/17 17:30 Dose: 4 unit Lisinopril (Zestril) 5 mg PO DAILY [facility] Last Admin: 08/02/17 09:41 Dose: 5 mg Morphine Sulfate (Morphine) 4 mg IVP Q4 PRN PRN Reason: Pain, severe (8-10) Last Admin: 08/02/17 16:28 Dose: 4 mg Ondansetron HCl (Zofran Inj) 4 mg IVP Q6 [facility] Last Admin: 08/02/17 18:32 Dose: 4 mg Pantoprazole Sodium (Protonix Ec Tab) 40 mg PO DAILY [facility] Last Admin: 08/02/17 09:41 Dose: 40 mg Results - Vital Signs Recent Vital Signs: Last Vital Signs Temp 97.8 F 08/02/17 15:00 Pulse 109 H 08/02/17 15:00 Resp 20 08/02/17 15:00 BP 143/84 08/02/17 15:00 Pulse Ox 98 08/02/17 15:00 - Labs Result Diagrams: 08/02/17 07:04 08/02/17 07:04 Labs: Laboratory Results - last 24 hr 07/31/17 08/02/17 08/02/17 08:23 07:04 07:04 WBC 15.6 H RBC 3.83 L Hgb 10.5 L Hct 31.6 L MCV 82.5 MCH 27.5 MCHC 33.3 RDW 13.2 Plt Count 401 H MPV 8.3 Neut % (Auto) 73.6 Lymph % (Auto) 10.5 L [place] % (Auto) 9.3 Eos % (Auto) 5.7 H Baso % (Auto) 0.9 Neut # 11.5 H Lymph # 1.6 [place] # 1.5 H Eos # 0.9 H Baso # 0.1 Puncture Site pCO2 pO2 HCO3 ABG pH ABG Total CO2 ABG O2 Saturation ABG Base Excess Joey Test ABG Potassium A-a O2 Difference Respiratory Index Glucose Lactate FiO2 Crit Value Called To Crit Value Called By Crit Value Read Back Blood Gas Notified Time Sodium 135 Potassium 4.2 Chloride 103 Carbon Dioxide 22 Anion Gap 15 BUN 9 Creatinine 0.8 Est GFR ( Amer) > 60 Est GFR (Non-Af Amer) > 60 POC Glucose (mg/dL) Random Glucose 188 H Hemoglobin A1c 9.9 H Calcium 8.1 L Phosphorus 2.2 L Magnesium 1.8 Total Bilirubin 0.6 AST 19 ALT 25 Alkaline Phosphatase 151 H D Total Protein 6.8 Albumin 2.9 L Globulin 3.9 Albumin/Globulin Ratio 0.7 L Arterial Blood Potassium Hepatitis A IgM Ab Hep Bs Antigen Hep B Core IgM Ab Hepatitis C Antibody HIV 1&2 Antibody Screen 08/02/17 08/02/17 08/02/17 07:39 11:37 12:27 WBC RBC Hgb Hct MCV MCH MCHC RDW Plt Count MPV Neut % (Auto) Lymph % (Auto) [place] % (Auto) Eos % (Auto) Baso % (Auto) Neut # Lymph # [place] # Eos # Baso # Puncture Site Rra pCO2 30 L pO2 44 L* HCO3 24.3 ABG pH 7.48 H ABG Total CO2 23.2 ABG O2 Saturation 88.3 L ABG Base Excess -0.3 Joey Test Po ABG Potassium 3.8 A-a O2 Difference 68.0 Respiratory Index 1.5 Glucose 259 H Lactate 1.0 FiO2 21.0 Crit Value Called To mickey Brice Crit Value Called By Matt pope rrt Crit Value Read Back Y Blood Gas Notified Time 1230 Sodium 136.0 Potassium Chloride 104.0 Carbon Dioxide Anion Gap BUN Creatinine Est GFR ( Amer) Est GFR (Non-Af Amer) POC Glucose (mg/dL) 223 H 270 H Random Glucose Hemoglobin A1c Calcium Phosphorus Magnesium Total Bilirubin AST ALT Alkaline Phosphatase Total Protein Albumin Globulin Albumin/Globulin Ratio Arterial Blood Potassium 3.8 Hepatitis A IgM Ab Hep Bs Antigen Hep B Core IgM Ab Hepatitis C Antibody HIV 1&2 Antibody Screen 08/02/17 08/02/17 08/02/17 14:03 14:53 16:22 WBC RBC Hgb Hct MCV MCH MCHC RDW Plt Count MPV Neut % (Auto) Lymph % (Auto) [place] % (Auto) Eos % (Auto) Baso % (Auto) Neut # Lymph # [place] # Eos # Baso # Puncture Site pCO2 pO2 HCO3 ABG pH ABG Total CO2 ABG O2 Saturation ABG Base Excess Joey Test ABG Potassium A-a O2 Difference Respiratory Index Glucose Lactate FiO2 Crit Value Called To Crit Value Called By Crit Value Read Back Blood Gas Notified Time Sodium Potassium Chloride Carbon Dioxide Anion Gap BUN Creatinine Est GFR ( Amer) Est GFR (Non-Af Amer) POC Glucose (mg/dL) 232 H Random Glucose Hemoglobin A1c Calcium Phosphorus Magnesium Total Bilirubin AST ALT Alkaline Phosphatase Total Protein Albumin Globulin Albumin/Globulin Ratio Arterial Blood Potassium Hepatitis A IgM Ab Negative Hep Bs Antigen Negative Hep B Core IgM Ab Negative Hepatitis C Antibody Negative HIV 1&2 Antibody Screen Negative
[2017-08-02] MEDS ORDERED: Iodixanol 320 MG/ML 100 ML BOTTLE IV ONE (21:24)
[2017-08-02] MEDS ORDERED: Enoxaparin 100 mg Syringe SC SCH (22:00)
--- NOTE | 2017-08-02 23:25 | CT ---
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 All CT scans at this facility use one or more dose reduction techniques, viz.: automated exposure control; ma/kV adjustment per patient size (including targeted exams where dose is matched to indication; i.e. head); or iterative reconstruction technique. Coronal and sagittal reformatted images were created and reviewed. CONTRAST: 100 mL of visipaque 320 administered intravenously. COMPARISON: No relevant prior studies available. FINDINGS: Pulmonary arteries: No evidence for large or central pulmonary embolism. Motion artifact limits evaluation of smaller branches. Aorta: Thoracic aorta is unremarkable. No thoracic aortic aneurysm. Lungs: There are multifocal air space opacities with air bronchograms involving the left upper lobe, right upper lobe, bilateral lower lobes and to a lesser extent the lingula and right middle lobe. This is most compatible with multifocal pneumonia. It is difficult to exclude a component of aspiration. Pleural space: There is a question of trace bilateral pleural effusions. No visible pneumothorax. Heart: The heart is not enlarged. No significant pericardial effusion. No evidence of RV dysfunction. Thyroid: Thyroid is normal in size and position. Bones/joints: There are moderate degenerative changes present. There is mild diffuse osteopenia. No acute fracture. No dislocation. Soft tissues: Unremarkable. Lymph nodes: There is a question of mild mediastinal subcarinal lymphadenopathy. Suggestion of mild left hilar adenopathy as well. There is no axillary adenopathy. Upper abdomen: Scans through the upper abdomen demonstrate no definite acute abnormalities. IMPRESSION: 1. There is a question of mild mediastinal subcarinal lymphadenopathy. Suggestion of mild left hilar adenopathy as well. 2. There are multifocal air space opacities with air bronchograms involving the left upper lobe, right upper lobe, bilateral lower lobes and to a lesser extent the lingula and right middle lobe. This is most compatible with multifocal pneumonia. It is difficult to exclude a component of aspiration. 3. There is a question of trace bilateral pleural effusions.
[2017-08-03] MEDS: Albuterol-Ipratrop 3 mg / 0.5 (3 ml) UD INH SCH ×4 (01:09→19:36)
[2017-08-03] MEDS: DiphenhydrAMINE 50 mg/ml Inj IVP PRN (01:45)
[2017-08-03] MEDS: Vancomycin 1 gm/NS 200 ml 1 GM/200 ML BAG IVPB SCH (01:46)
[2017-08-03] MEDS: Piperacillin/Tazobact 3.375 GM in Sodium Chloride 100 ML IVPB SCH ×3 (03:39→19:46)
[2017-08-03 07:03] LABS: BASO # 0.1 K/uL (0.0-0.2); BASO % 0.7 % (0.0-2.0); EOS # 0.7 K/uL (0.0-0.7); EOS % 5.3 % (0.0-4.0); HEMATOCRIT 29.3 % (35.0-51.0); LYMPH # 1.4 K/uL (1.0-4.3); LYMPH % 11.3 % (20.0-40.0); MEAN CELL VOLUME 82.6 fL (80.0-94.0); MEAN CORPUSCULAR HGB CONC 35.1 g/dL (33.0-37.0); MEAN PLATELET VOLUME 8.5 fL (7.2-11.7); MONO # 1.5 K/uL (0.0-0.8); MONO % 11.8 % (0.0-10.0); RED CELL DISTRIBUTION WIDTH 13.4 % (11.5-14.5); WHITE BLOOD COUNT 12.5 K/uL (4.8-10.8)
--- NOTE | 2017-08-03 07:21 | CP.PCM.PN ---
<Radha Jones - Last Filed: 08/03/17 17:49> Subjective - Date & Time of Evaluation Date of Evaluation: 08/03/17 Time of Evaluation: 07:00 - Subjective Subjective: PGY1- Medicine Note- Dr. Hickman's Service Patient seen and examined at bedside and in no acute distress. Patient still having shortness of breath and cough. Patient complains of feeling hot and sweating. Patient wants his catheter removed. Patient denies chest pain, abdominal pain, constipation, diarrhea. Objective - Vital Signs/Intake and Output Vital Signs (last 24 hours): Temp Pulse Resp BP Pulse Ox 98.9 F 114 H 20 137/80 96 08/03/17 06:11 08/03/17 04:49 08/03/17 04:49 08/03/17 04:49 08/03/17 04:49 Intake and Output: 08/03/17 08/03/17 06:59 18:59 Intake Total 1125 750 Output Total 2700 Balance -1575 750 - Medications Medications: Current Medications Acetaminophen (Tylenol 325mg Tab) 650 mg PO Q6 PRN PRN Reason: Fever >100.4 F Last Admin: 08/03/17 05:11 Dose: 650 mg Albuterol/Ipratropium (Duoneb 3 Mg/0.5 Mg (3 Ml) Ud) 3 ml INH RQ6 [facility] [place] Last Admin: 08/03/17 01:09 Dose: 3 ml Benzonatate (Tessalon Perles) 100 mg PO TID [facility] [place] Last Admin: 08/02/17 18:32 Dose: 100 mg Diphenhydramine HCl (Benadryl) 25 mg IVP Q6H PRN PRN Reason: Itching / Pruritus Last Admin: 08/03/17 01:45 Dose: 25 mg Docusate Sodium (Colace) 100 mg PO TID [facility] [place] Last Admin: 08/02/17 18:32 Dose: 100 mg Enoxaparin Sodium (Lovenox) 100 mg SC Q12 [facility] [place] Last Admin: 08/02/17 23:26 Dose: 100 mg Piperacillin Sod/Tazobactam (Sod 3.375 gm/ Sodium Chloride) 100 mls @ 200 mls/ hr IVPB Q8H [facility] [place] Last Admin: 08/03/17 03:39 Dose: 200 mls/hr Vancomycin/Sodium Chloride (Vancocin) 1 gm in 200 mls @ 133.333 mls/hr IVPB Q12H [facility] [place] Stop: 08/07/17 14:31 Last Admin: 08/03/17 01:46 Dose: 133.333 mls/hr Sodium Chloride (Sodium Chloride 0.9%) 1,000 mls @ 75 mls/hr IV .[id number] [facility] [place] Last Admin: 08/02/17 18:32 Dose: 75 mls/hr Insulin Aspart (Novolog Mix 70/30 (70/30 Units/Ml)) 30 units SC BIDAC [facility] [place] Last Admin: 08/02/17 17:30 Dose: 30 units Insulin Human Regular (Novolin R) 0 unit SC ACHS [facility] PRN Reason: Protocol Last Admin: 08/02/17 23:25 Dose: 2 unit Lisinopril (Zestril) 5 mg PO DAILY [facility] [place] Last Admin: 08/02/17 09:41 Dose: 5 mg Morphine Sulfate (Morphine) 4 mg IVP Q4 PRN PRN Reason: Pain, severe (8-10) Last Admin: 08/02/17 16:28 Dose: 4 mg Ondansetron HCl (Zofran Inj) 4 mg IVP Q6 [facility] [place] Last Admin: 08/03/17 05:12 Dose: 4 mg Pantoprazole Sodium (Protonix Ec Tab) 40 mg PO DAILY [facility] [place] Last Admin: 08/02/17 09:41 Dose: 40 mg - Labs Labs: 08/03/17 06:45 08/02/17 07:04 PT 13.9 SECONDS (9.7-12.2) H 07/30/17 18:33 INR 1.2 07/30/17 18:33 APTT 26 SECONDS (21-34) 07/30/17 18:33 - Constitutional Appears: Non-toxic, No Acute Distress - Head Exam Head Exam: ATRAUMATIC, NORMAL INSPECTION, NORMOCEPHALIC - Eye Exam Eye Exam: EOMI, Normal appearance - ENT Exam ENT Exam: Mucous Membranes Moist - Neck Exam Neck Exam: Full ROM. absent: Tenderness - Respiratory Exam Respiratory Exam: Wheezes, NORMAL BREATHING PATTERN. absent: Rhonchi - Cardiovascular Exam Cardiovascular Exam: Tachycardia, REGULAR RHYTHM. absent: Gallop, Rubs, Murmur - GI/Abdominal Exam GI & Abdominal Exam: Soft, Normal Bowel Sounds - Extremities Exam Extremities Exam: Full ROM, Normal Inspection - Neurological Exam Neurological Exam: Alert, Awake, Oriented x3 - Psychiatric Exam Psychiatric exam: Normal Affect, Normal Mood - Skin Skin Exam: Intact, Normal Color, Warm Assessment and Plan - Assessment and Plan (Free Text) Assessment: Sepsis 2/2 PNA * WBC on 08/02 decreased from 18.4 to 15.6 * TLC L.IJ * NS stopped by Dr. Leavitt * Zosyn 3.3 IV Q8 * Vancomycin increased to 1400mg q 12h as per Dr. Patel (on 08/03/17) * Chest CT - Multilobar b/l pulm infiltrates, likely PNA * Lactate 4.1 --> 1.1 * Procalcitonin - 1.8 * duoneb treatments q6h * ICU consulted, Dr. Denis, help appreciated * Pulm consulted, Dr. Galan, help appreciated * ID consulted, Dr. Patel, help appreciated * ABG on 08/02: pCO2: 30, pO2: 44, pH: 7.48 * Chest CT on 08/02: 1.question of mild mediastinal subcarinal lymphadenopathy. suggestion of mild left hilar adenopathy as well 2. multifocal air space opacities with air bronchograms involving left upper lobe, right upper lobe, bilateral lower lobes and to a lesser extent the lingula and right middle lobe. most compatible with multifocal pneumonia. difficult to exclude a component of aspiration 3. question of trace b/l pleural effusions * CXRAY on 08/02: prominent diffuse increased interstitial lung markings throughout both lungs suggestive for edema and or infiltrate. patch airspace * HIV and Hep panel: negative * ABG on 08/03: pCo2: 37, pO2: 86, HCO3: 25.8, pH:7.44, SaO2: 99.6 * Lactate increased to 2.2 from 1.1 yesterday, f/u in am R. Groin Abscess * Surgery ([facility]) * Bedside I/D * Dressing change per surgery team * Wound culture - Beta hemolytic strep resistant to clinda * Zosyn 3.3 IV Q8 Tachycardia * patient transferred to telemetry floor on 08/02 for tachycardia * cardiology consulted Dr. Leavitt, help appreciated * f/u Echo Hx DM * HbA1c: 9.9 * Novalin 70/30 30 U BID AC discontinued on 08/03 * started Lantus 30 u HS, Novolog 10 u TIDAC * High Dose Insulin sliding scale * Accuchecks Hx HTN * Lisinopril 5mg PO QD Prophylaxis * Heparin * Protonix * Zofran PRN nausea <Maximiliano Hickman M - Last Filed: 08/03/17 18:09> Objective - Vital Signs/Intake and Output Vital Signs (last 24 hours): Temp Pulse Resp BP Pulse Ox 97.6 F 104 H 20 128/74 96 08/03/17 16:12 08/03/17 16:12 08/03/17 16:12 08/03/17 16:12 08/03/17 16:12 Intake and Output: 08/03/17 08/03/17 06:59 18:59 Intake Total 1125 1540 Output Total 2700 700 Balance -1575 840 - Medications Medications: Current Medications Acetaminophen (Tylenol 325mg Tab) 650 mg PO Q6 PRN PRN Reason: Fever >100.4 F Last Admin: 08/03/17 05:11 Dose: 650 mg Albuterol/Ipratropium (Duoneb 3 Mg/0.5 Mg (3 Ml) Ud) 3 ml INH RQ6 [facility] [place] Last Admin: 08/03/17 13:13 Dose: 3 ml Benzonatate (Tessalon Perles) 100 mg PO TID [facility] [place] Last Admin: 08/03/17 17:52 Dose: 100 mg Calcium Acetate (Phoslo) 667 mg PO TIDCC [facility] [place] Last Admin: 08/03/17 17:52 Dose: 667 mg Diphenhydramine HCl (Benadryl) 25 mg IVP Q6H PRN PRN Reason: Itching / Pruritus Last Admin: 08/03/17 01:45 Dose: 25 mg Docusate Sodium (Colace) 100 mg PO TID [facility] [place] Last Admin: 08/03/17 17:52 Dose: 100 mg Enoxaparin Sodium (Lovenox) 40 mg SC DAILY [facility] [place] Last Admin: 08/03/17 11:56 Dose: 40 mg Furosemide (Lasix) 40 mg IVP DAILY [facility] [place] Last Admin: 08/03/17 12:33 Dose: 40 mg Piperacillin Sod/Tazobactam (Sod 3.375 gm/ Sodium Chloride) 100 mls @ 200 mls/ hr IVPB Q8H [facility] [place] Last Admin: 08/03/17 11:56 Dose: 200 mls/hr Vancomycin HCl 1,400 mg/ (Sodium Chloride) 500 mls @ 250 mls/hr IVPB Q12H [facility] [place] Last Admin: 08/03/17 13:31 Dose: 250 mls/hr Sodium Chloride (Sodium Chloride 0.9%) 1,000 mls @ 1,000 mls/hr IV .Q1H [facility] Stop: 08/03/17 19:05 Insulin Aspart (Novolog) 10 unit SC TIDAC [facility] [place] Last Admin: 08/03/17 17:53 Dose: 10 unit Insulin Glargine (Lantus) 30 unit SC HS [facility] Insulin Human Regular (Novolin R) 0 unit SC ACHS [facility] PRN Reason: Protocol Last Admin: 08/03/17 17:56 Dose: 8 unit Lisinopril (Zestril) 5 mg PO DAILY [facility] [place] Last Admin: 08/03/17 11:56 Dose: 5 mg Magnesium Chloride (Slow-Mag) 64 mg PO DAILY [facility] [place] Morphine Sulfate (Morphine) 4 mg IVP Q4 PRN PRN Reason: Pain, severe (8-10) Last Admin: 08/02/17 16:28 Dose: 4 mg Ondansetron HCl (Zofran Inj) 4 mg IVP Q6 [facility] [place] Last Admin: 08/03/17 17:56 Dose: Not Given Pantoprazole Sodium (Protonix Ec Tab) 40 mg PO DAILY [facility] [place] Last Admin: 08/03/17 11:56 Dose: 40 mg Potassium Chloride (K-Dur 20 Meq Er Tab) 20 meq PO DAILY [facility] [place] Last Admin: 08/03/17 12:33 Dose: 20 meq - Labs Labs: 08/03/17 06:45 08/03/17 06:45 PT 13.9 SECONDS (9.7-12.2) H 07/30/17 18:33 INR 1.2 07/30/17 18:33 APTT 26 SECONDS (21-34) 07/30/17 18:33 Attending/Attestation - Attestation I have personally seen and examined this patient.: Yes I have fully participated in the care of the patient.: Yes I have reviewed all pertinent clinical information, including history, physical exam and plan: Yes Notes (Text): 08/03/17 18:07 Patient seen and examined at bedside. Patient stated he is feeling slightly better today Patient has clinically improved a little today. We will continue IV antibiotics We have requested infectious disease consultation We have also requested cardiology consultation for episode of V. tach last night I discussed with the electro winning operator Likely patient has congestive heart failure Follow-up report of echocardiogram We will do gentle hydration only in view of elevated lactic acid Pulmonary consultation also completed I discussed with blueprint cutter Continue current medical management I discussed the plan of care with the resident and I agree with the history and physical and assessment/plan recommended by the resident.
[2017-08-03 07:28] LABS: CHLORIDE 102 mmol/L (98-107)
[2017-08-03 07:29] LABS: POTASSIUM 3.8 mmol/L (3.6-5.2); SODIUM 136 mmol/L (132-148)
[2017-08-03 07:31] LABS: ALB/GLOB RATIO 0.8 (1.0-2.1); ALKALINE PHOSPHATASE 165 U/L (38-126); AST/SGOT 45 U/L (17-59); BILIRUBIN,TOTAL 0.7 mg/dL (0.2-1.3); BLOOD UREA NITROGEN 7 mg/dL (9-20); CARBON DIOXIDE 21 mmol/L (22-30); GFR AFRICAN-AMERICAN > 60; GLUCOSE,RANDOM 289 mg/dL (75-110); TOTAL PROTEIN 6.8 g/dL (6.3-8.3)
[2017-08-03 07:32] LABS: ALT/SGPT 53 U/L (21-72); CALCIUM 8.4 mg/dl (8.6-10.4); MAGNESIUM 1.6 mg/dL (1.6-2.3); PHOSPHOROUS 2.3 mg/dL (2.5-4.5)
[2017-08-03] MEDS: Sodium Chloride 0.9% 1,000 ML IV SCH (08:05)
--- NOTE | 2017-08-03 08:44 | CP.PCM.PN ---
<BurtonEmeka - Last Filed: 08/03/17 08:44> Subjective - Date & Time of Evaluation Date of Evaluation: 08/03/17 Time of Evaluation: 08:43 - Subjective Subjective: Surgery Pt S&e. Pt coughing. Pain controlled. Denies CP/n/v/d. Pt had fever of 100.4 overnight. Objective - Vital Signs/Intake and Output Vital Signs (last 24 hours): Temp Pulse Resp BP Pulse Ox 99.0 F 105 H 20 123/75 97 08/03/17 07:00 08/03/17 07:00 08/03/17 07:00 08/03/17 07:00 08/03/17 07:00 Intake and Output: 08/03/17 08/03/17 06:59 18:59 Intake Total 1125 750 Output Total 2700 Balance -1575 750 - Medications Medications: Current Medications Acetaminophen (Tylenol 325mg Tab) 650 mg PO Q6 PRN PRN Reason: Fever >100.4 F Last Admin: 08/03/17 05:11 Dose: 650 mg Albuterol/Ipratropium (Duoneb 3 Mg/0.5 Mg (3 Ml) Ud) 3 ml INH RQ6 [facility] Last Admin: 08/03/17 07:19 Dose: 3 ml Benzonatate (Tessalon Perles) 100 mg PO TID [facility] Last Admin: 08/02/17 18:32 Dose: 100 mg Diphenhydramine HCl (Benadryl) 25 mg IVP Q6H PRN PRN Reason: Itching / Pruritus Last Admin: 08/03/17 01:45 Dose: 25 mg Docusate Sodium (Colace) 100 mg PO TID [facility] Last Admin: 08/02/17 18:32 Dose: 100 mg Enoxaparin Sodium (Lovenox) 100 mg SC Q12 [facility] Last Admin: 08/02/17 23:26 Dose: 100 mg Hydromorphone HCl (Dilaudid) 1 mg IVP STAT STA Stop: 08/03/17 08:43 Piperacillin Sod/Tazobactam (Sod 3.375 gm/ Sodium Chloride) 100 mls @ 200 mls/ hr IVPB Q8H [facility] Last Admin: 08/03/17 03:39 Dose: 200 mls/hr Vancomycin/Sodium Chloride (Vancocin) 1 gm in 200 mls @ 133.333 mls/hr IVPB Q12H [facility] Stop: 08/07/17 14:31 Last Admin: 08/03/17 01:46 Dose: 133.333 mls/hr Sodium Chloride (Sodium Chloride 0.9%) 1,000 mls @ 75 mls/hr IV .[id number] [facility] Last Admin: 08/03/17 08:05 Dose: Not Given Insulin Aspart (Novolog Mix 70/30 (70/30 Units/Ml)) 30 units SC BIDAC [facility] Last Admin: 08/02/17 17:30 Dose: 30 units Insulin Human Regular (Novolin R) 0 unit SC ACHS [facility] PRN Reason: Protocol Last Admin: 08/02/17 23:25 Dose: 2 unit Lisinopril (Zestril) 5 mg PO DAILY [facility] Last Admin: 08/02/17 09:41 Dose: 5 mg Morphine Sulfate (Morphine) 4 mg IVP Q4 PRN PRN Reason: Pain, severe (8-10) Last Admin: 08/02/17 16:28 Dose: 4 mg Ondansetron HCl (Zofran Inj) 4 mg IVP Q6 [facility] Last Admin: 08/03/17 05:12 Dose: 4 mg Pantoprazole Sodium (Protonix Ec Tab) 40 mg PO DAILY [facility] Last Admin: 08/02/17 09:41 Dose: 40 mg - Labs Labs: 08/03/17 06:45 08/03/17 06:45 PT 13.9 SECONDS (9.7-12.2) H 07/30/17 18:33 INR 1.2 07/30/17 18:33 APTT 26 SECONDS (21-34) 07/30/17 18:33 - Constitutional Appears: Non-toxic - Head Exam Head Exam: ATRAUMATIC, NORMAL INSPECTION, NORMOCEPHALIC - Eye Exam Eye Exam: EOMI, Normal appearance, PERRL Pupil Exam: NORMAL ACCOMODATION, PERRL - ENT Exam ENT Exam: Mucous Membranes Moist, Normal Exam - Neck Exam Neck Exam: Full ROM, Normal Inspection. absent: Lymphadenopathy - Cardiovascular Exam Cardiovascular Exam: REGULAR RHYTHM, +S1, +S2. absent: Murmur - GI/Abdominal Exam GI & Abdominal Exam: Soft, Normal Bowel Sounds. absent: Tenderness - Extremities Exam Extremities Exam: Full ROM, Tenderness. absent: Normal Inspection Additional comments: R groin . Mild recrotic tissues. - Neurological Exam Neurological Exam: Alert, Awake, CN II-XII Intact, Normal Gait, Oriented x3 - Psychiatric Exam Psychiatric exam: Normal Affect, Normal Mood - Skin Skin Exam: Erythema, Normal Color, Warm Assessment and Plan - Assessment and Plan (Free Text) Assessment: POD 3 sp I&D of R groin Will do wound debridement of R groin today ABX Medical management We will follow Will MIRA Srivastava <Stefan Srivastava - Last Filed: 08/03/17 16:11> Objective - Vital Signs/Intake and Output Vital Signs (last 24 hours): Temp Pulse Resp BP Pulse Ox 97.5 F L 106 H 20 125/75 93 L 08/03/17 10:24 08/03/17 10:24 08/03/17 10:24 08/03/17 12:33 08/03/17 10:24 Intake and Output: 08/03/17 08/03/17 06:59 18:59 Intake Total 1125 1540 Output Total 2700 700 Balance -1575 840 - Medications Medications: Current Medications Acetaminophen (Tylenol 325mg Tab) 650 mg PO Q6 PRN PRN Reason: Fever >100.4 F Last Admin: 08/03/17 05:11 Dose: 650 mg Albuterol/Ipratropium (Duoneb 3 Mg/0.5 Mg (3 Ml) Ud) 3 ml INH RQ6 [facility] Last Admin: 08/03/17 13:13 Dose: 3 ml Benzonatate (Tessalon Perles) 100 mg PO TID [facility] Last Admin: 08/03/17 13:32 Dose: Not Given Calcium Acetate (Phoslo) 667 mg PO TIDCC [facility] Last Admin: 08/03/17 11:56 Dose: 667 mg Diphenhydramine HCl (Benadryl) 25 mg IVP Q6H PRN PRN Reason: Itching / Pruritus Last Admin: 08/03/17 01:45 Dose: 25 mg Docusate Sodium (Colace) 100 mg PO TID [facility] Last Admin: 08/03/17 13:32 Dose: Not Given Enoxaparin Sodium (Lovenox) 40 mg SC DAILY [facility] Last Admin: 08/03/17 11:56 Dose: 40 mg Furosemide (Lasix) 40 mg IVP DAILY [facility] Last Admin: 08/03/17 12:33 Dose: 40 mg Piperacillin Sod/Tazobactam (Sod 3.375 gm/ Sodium Chloride) 100 mls @ 200 mls/ hr IVPB Q8H [facility] Last Admin: 08/03/17 11:56 Dose: 200 mls/hr Vancomycin HCl 1,400 mg/ (Sodium Chloride) 500 mls @ 250 mls/hr IVPB Q12H [facility] Last Admin: 08/03/17 13:31 Dose: 250 mls/hr Insulin Aspart (Novolog) 10 unit SC TIDAC [facility] Insulin Glargine (Lantus) 30 unit SC HS [facility] Insulin Human Regular (Novolin R) 0 unit SC ACHS [facility] PRN Reason: Protocol Last Admin: 08/03/17 12:17 Dose: 12 unit Lisinopril (Zestril) 5 mg PO DAILY [facility] Last Admin: 08/03/17 11:56 Dose: 5 mg Magnesium Chloride (Slow-Mag) 64 mg PO DAILY [facility] Morphine Sulfate (Morphine) 4 mg IVP Q4 PRN PRN Reason: Pain, severe (8-10) Last Admin: 08/02/17 16:28 Dose: 4 mg Ondansetron HCl (Zofran Inj) 4 mg IVP Q6 [facility] Last Admin: 08/03/17 12:01 Dose: Not Given Pantoprazole Sodium (Protonix Ec Tab) 40 mg PO DAILY [facility] Last Admin: 08/03/17 11:56 Dose: 40 mg Potassium Chloride (K-Dur 20 Meq Er Tab) 20 meq PO DAILY [facility] Last Admin: 08/03/17 12:33 Dose: 20 meq - Labs Labs: 08/03/17 06:45 08/03/17 06:45 PT 13.9 SECONDS (9.7-12.2) H 07/30/17 18:33 INR 1.2 07/30/17 18:33 APTT 26 SECONDS (21-34) 07/30/17 18:33 Attending/Attestation - Attestation I have personally seen and examined this patient.: Yes I have fully participated in the care of the patient.: Yes I have reviewed all pertinent clinical information, including history, physical exam and plan: Yes Notes (Text): 08/03/17 16:10 Pt was seen and examined at bedside Agree with above note and assessment Pt with right groin wound with necrotic tissue Debridement at bedside c/w current mx Plan d/w pt in detail Risk and benefit explained in detail.
[2017-08-03] MEDS ORDERED: Lidocaine 1%/Epinephrine 1:100000 30 ml vial IJ ONE (08:55)
[2017-08-03] MEDS: (Novolog Mix 70/30) Insulin Aspart/Insulin Aspar 100 units/ml SC SCH (08:58)
[2017-08-03] MEDS: (Novolin R) Insulin Human Regular 100 units/ml vial SC SCH ×4 (08:58→22:13)
[2017-08-03] MEDS ORDERED: (Novolog Mix 70/30) Insulin Aspart/Insulin Aspar 100 units/ml SC SCH (09:03)
--- NOTE | 2017-08-03 10:22 | PCM.SURG1 ---
Surgeon's Initial Post Op Note - Surgeon's Notes Surgeon: Dr. Srivastava Welder Apprentice Combination: Brad Richardson III Type of Anesthesia: Local Pre-Operative Diagnosis: Right groin necrotic wound Operative Findings: Necrotic tissue Post-Operative Diagnosis: Necrotic wound Operation Performed: Debridement of necrotic tissue Specimen/Specimens Removed: Necrotic tissue Estimated Blood Loss: EBL {In ML}: 2 Date of Surgery/Procedure: 08/03/17 Time of Surgery/Procedure: 10:00
[2017-08-03] MEDS: Pantoprazole 40 mg EC Tab PO SCH (11:56)
[2017-08-03] MEDS: Enoxaparin 40 mg Syringe SC SCH (11:56)
[2017-08-03] MEDS ORDERED: Magnesium Sulfate 1 gm in D5W 1 GM/100 ML BAG IVPB ONE (12:14)
[2017-08-03] MEDS: Potassium Chloride 20 mEq ER Tab PO SCH (12:33)
[2017-08-03 12:43] LABS: ABG ALLEN TEST POS; DRAW SITE RRA
[2017-08-03 13:34] LABS: H INFLUENZAE B NOT REQUIRED (NEGATIVE); N MENINGITIS ACY/W135 NOT REQUIRED (NEGATIVE); N MENINGITIS B/ECOLI K1 NOT REQUIRED (NEGATIVE)
[2017-08-03] MEDS ORDERED: (Novolog) Insulin Aspart, Recombinant 100 u/ml 10 ml vial SC SCH (16:30)
--- NOTE | 2017-08-03 17:42 | CON ---
DATE: INFECTIOUS DISEASE CONSULTATION REQUESTED BY: Maximiliano Hickman MD HISTORY OF PRESENT ILLNESS: This patient is a 46-year-old male. He was admitted on 07/31/2017. He comes in with history of hypertension, diabetes mellitus, he has morbid obesity, his weight is 250 pounds, asthma, and he has right groin abscess which had an I and D done. He has been having fever and chills. I was asked to see him today. When I went to see him this evening, he was on a nonrebreather mask. He is short of breath. He denies any history of recent asthma, but he says he did had asthma when he was growing up and has a groin abscess. He is diabetic. He denies shaving in that area or any trauma. He is feeling slightly better, but he remains on nonrebreather mask and his ABG was very poor. He says he is with his for 20 years and his was also in the room. He was treated for pneumonia before and was discharged home on Zithromax, but he still continues to have shortness of breath and he is on a nonrebreather mask. He has had abscesses in the past, so he could be a colonizer, but we will go over his reports. PAST MEDICAL HISTORY: Significant for hypertension, diabetes, asthma, abscess in the past, and also has right groin abscess right now. SOCIAL HISTORY: He does smoke. He just stopped smoking now and he used to smoke half pack per day for more than 20 years. He denies any ETOH abuse or drug abuse. ALLERGIES: HE IS NOT ALLERGIC TO ANY MEDICINES. He did come with chills and fever. 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 He did come in with diaphoresis. Denies chest pain. Has been having cough, shortness of breath, nausea, no diarrhea, no vomiting, no abdominal pain. He denies any urinary symptoms. No dysuria or hematuria. Denies any myalgias. He has lesion abscess in the right groin, which was I and D'd . He denies any psych problems. He is easily fatigued. He has past medical history of smoking. He is pleasant. He is diabetic. He denies any trauma. MEDICATIONS: He is on Benadryl, Tessalon Perles, albuterol, Colace, Lovenox. I just added because I am ordering a CTA and I am not sure if they will do it tonight for the chest. Insulin, he has been b.i.d. 70/30. He is on Zestril, morphine, and he is on Zofran, Protonix, and he is on Zosyn and vancomycin. Recently, he was here on 07/17/2017 in the ER with abdominal pain. He was here from 07/12/2016 to 07/15/2016 with cellulitis and uncontrolled diabetes that was last year. PHYSICAL EXAMINATION: GENERAL: On examination, I find the patient is an obese male. He is with shortness of breath on nonrebreather mask. HE IS NOT ALLERGIC TO ANY MEDICINES. VITAL SIGNS: T-max is 97.8, pulse is 109, blood pressure is 143/84, and respirations are 20. HEAD: Atraumatic, normocephalic. NECK: Supple. LUNGS: Have occasional wheeze, but has decreased breath sounds bilaterally. HEART: S1 and S2. He is tachycardic. ABDOMEN: Soft, nontender. No guarding. No rigidity present. Right groin, he has an abscess which was I and D'd. He also has a Allan catheter. He is complaining of getting Allan catheter out. He wants it out. EXTREMITIES: No edema, clubbing, or cyanosis. LABORATORY DATA: White count is 15.6 today, hemoglobin 10.5, hematocrit 31.6, and platelet count is 401. ABG was done this morning, which shows 7.48, is 30, I am not sure, saturation was 88.3, glucose is 259, lactate level is 1. So at this time, I think there was a report of a chest CT done which was done on 07/31/2017 when he came and it shows multilobar bilateral pulmonary infiltrates likely pneumonia. He also had a chest x-ray today at 1:00 which shows prominent diffuse increased interstitial markings throughout lungs suggestive of edema or infiltrates, patchy air space opacification within mid to lower lobe bilaterally with small pleural effusion, cardiomegaly, right mid lung atelectasis, and left central venous catheter. IMPRESSION: Prominent diffuse interstitial lung markings throughout both lungs suggestive of edema and/or infiltrates, patchy air space opacification within mid lung zone bilaterally, and small bilateral pleural effusion. He may have bilateral pneumonia, but I want to rule out any embolism as he appears really short of breath on nonrebreather mask. He is on vancomycin and Zosyn and we will order other orders to rule out pneumonia. He is human immunodeficiency virus negative and follow with the resident. Jas Patel MD
[2017-08-03] MEDS ORDERED: Sodium Chloride 0.9% 1,000 ML IV ONE (18:06)
[2017-08-03] MEDS ORDERED: Sodium Chloride 0.9% 1,000 ML IV SCH (19:00)
--- NOTE | 2017-08-03 20:05 | CARD ---
APPROVED REPORT EXAM: Two-dimensional and M-mode echocardiogram with Doppler and color Doppler. Other Information Quality : GoodRhythm : NSR INDICATION Chest Pain asthma RISK FACTORS Hypertension Diabetes 2D DIMENSIONS IVSd1.4 (0.7-1.1cm)LVDd4.8 (3.9-5.9cm) PWd1.1 (0.7-1.1cm)LVDs3.4 (2.5-4.0cm) FS (%) 29.6 %LVEF (%)56.6 (>50%) M-Mode DIMENSIONS Left Atrium (MM)4.36 (2.5-4.0cm)Aortic Root3.43 (2.2-3.7cm) Aortic Cusp Exc.2.31 (1.5-2.0cm) Mitral Valve MV E Ukyqqkdh334.5cm/sMV A Pkcpgnlj740.2cm/sE/A ratio1.1 TDI E/Lateral E'0.0E/Medial E'0.0 <Conclusion> tds. poor window. normal size,lv & ra rv. la is mildly dilated,4.1 cm. normal lv wall motion,thickness,systolic & diastolic function with lvef of 55-60%. aortic mitral,tv & pv grossly appears normal. trace mr,tr. no pericardial effusion. normal size aortic root. clinical correaltion is adv.
--- NOTE | 2017-08-03 20:26 | CP.PCM.PN ---
Subjective - Date & Time of Evaluation Date of Evaluation: 08/03/17 Time of Evaluation: 03:15 - Subjective Subjective: dictated Objective - Vital Signs/Intake and Output Vital Signs (last 24 hours): Temp Pulse Resp BP Pulse Ox 97.6 F 104 H 20 128/74 96 08/03/17 16:12 08/03/17 16:12 08/03/17 16:12 08/03/17 16:12 08/03/17 16:12 Intake and Output: 08/03/17 08/04/17 18:59 06:59 Intake Total 1540 Output Total 700 Balance 840 - Medications Medications: Current Medications Acetaminophen (Tylenol 325mg Tab) 650 mg PO Q6 PRN PRN Reason: Fever >100.4 F Last Admin: 08/03/17 05:11 Dose: 650 mg Albuterol/Ipratropium (Duoneb 3 Mg/0.5 Mg (3 Ml) Ud) 3 ml INH RQ6 [facility] Last Admin: 08/03/17 19:36 Dose: 3 ml Benzonatate (Tessalon Perles) 100 mg PO TID [facility] Last Admin: 08/03/17 17:52 Dose: 100 mg Calcium Acetate (Phoslo) 667 mg PO TIDCC [facility] Last Admin: 08/03/17 17:52 Dose: 667 mg Diphenhydramine HCl (Benadryl) 25 mg IVP Q6H PRN PRN Reason: Itching / Pruritus Last Admin: 08/03/17 01:45 Dose: 25 mg Docusate Sodium (Colace) 100 mg PO TID [facility] Last Admin: 08/03/17 17:52 Dose: 100 mg Enoxaparin Sodium (Lovenox) 40 mg SC DAILY [facility] Last Admin: 08/03/17 11:56 Dose: 40 mg Furosemide (Lasix) 40 mg IVP DAILY [facility] Last Admin: 08/03/17 12:33 Dose: 40 mg Piperacillin Sod/Tazobactam (Sod 3.375 gm/ Sodium Chloride) 100 mls @ 200 mls/ hr IVPB Q8H [facility] Last Admin: 08/03/17 19:46 Dose: 200 mls/hr Vancomycin HCl 1,400 mg/ (Sodium Chloride) 500 mls @ 250 mls/hr IVPB Q12H [facility] Last Admin: 08/03/17 13:31 Dose: 250 mls/hr Sodium Chloride (Sodium Chloride 0.9%) 1,000 mls @ 60 mls/hr IV .[id number] [facility] Last Admin: 08/03/17 19:47 Dose: 60 mls/hr Insulin Aspart (Novolog) 10 unit SC TIDAC [facility] Last Admin: 08/03/17 17:53 Dose: 10 unit Insulin Glargine (Lantus) 30 unit SC HS [facility] Insulin Human Regular (Novolin R) 0 unit SC ACHS [facility] PRN Reason: Protocol Last Admin: 08/03/17 17:56 Dose: 8 unit Lisinopril (Zestril) 5 mg PO DAILY [facility] Last Admin: 08/03/17 11:56 Dose: 5 mg Magnesium Chloride (Slow-Mag) 64 mg PO DAILY [facility] Morphine Sulfate (Morphine) 4 mg IVP Q4 PRN PRN Reason: Pain, severe (8-10) Last Admin: 08/02/17 16:28 Dose: 4 mg Ondansetron HCl (Zofran Inj) 4 mg IVP Q6 [facility] Last Admin: 08/03/17 17:56 Dose: Not Given Pantoprazole Sodium (Protonix Ec Tab) 40 mg PO DAILY [facility] Last Admin: 08/03/17 11:56 Dose: 40 mg Potassium Chloride (K-Dur 20 Meq Er Tab) 20 meq PO DAILY [facility] Last Admin: 08/03/17 12:33 Dose: 20 meq - Labs Labs: 08/03/17 06:45 08/03/17 06:45 PT 13.9 SECONDS (9.7-12.2) H 07/30/17 18:33 INR 1.2 07/30/17 18:33 APTT 26 SECONDS (21-34) 07/30/17 18:33
[2017-08-03] MEDS: (Lantus) Insulin Glargine, Recombinant SC SCH (22:13)
--- NOTE | 2017-08-03 23:34 | CON ---
DATE: 08/03/2017 HISTORY OF PRESENT ILLNESS: A 46-year-old male with hypertension, diabetes, admitted to the hospital with chief complaint of shortness of breath, cough, weakness, fatigue, dullness, and fever. The patient in the ER was found to have bilateral pneumonia. The patient was started on IV antibiotics. The patient states stopped smoking two weeks ago because he was short of breath. 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 PHYSICAL EXAMINATION GENERAL: The patient is awake, alert, and obese. VITAL SIGNS: Temperature 98, pulse is 90. HEENT: Within normal limits. NECK: Supple. CHEST: Symmetrical air entry. HEART: Regular. ABDOMEN: Soft. EXTREMITIES: No edema. ASSESSMENT AND PLAN: The patient was found to have bilateral pneumonia. The patient is intravenous antibiotics, smoking cessation, . Suleiman Galan MD
--- NOTE | 2017-08-04 02:13 | PN ---
INFECTIOUS DISEASE FOLLOWUP I had ordered a CT angio of this patient as he was on a non-rebreather mask; today, he was on oxygen and appeared slightly better. I saw him around 3:00. PHYSICAL EXAMINATION VITAL SIGNS: T-max was 97.5, pulse of 106, blood pressure 125/75, respirations are 20, saturation was 93. HEENT: Head is atraumatic and normocephalic. NECK: Supple. LUNGS: Occasional wheeze and rhonchi. HEART: S1 and S2 is regular. ABDOMEN: Soft, nontender. He has a right groin abscess. EXTREMITIES: He had no edema, clubbing, or cyanosis. LABORATORY DATA: White count was noted, it was 12.5 today; hemoglobin 10.3; hematocrit 29; platelet count is 448, is elevated. He had a CT. The BUN is 17, creatinine is 0.8. Sugars have been running high of 291 and alk phos is 165. Microbiology: His cultures have only shown beta-hemolytic group B. He is diabetic. Urine culture is negative. Sputum culture is negative, and we did x-ray, chest CT which was a angio CTA as he is obese and he was on non-rebreather mask and he has had pneumonia before I wanted to , has mild mediastinal and subcarinal lymphadenopathy besides mild left hilar adenopathy. There are multifocal space opacities, air bronchograms, involving left upper, right upper and bilateral lower lobes, to a lesser extent the lingula and right middle lobe; this is most compatible with multifocal pneumonia and there is a question of trace bilateral pleural effusion, so he does have adenopathy as well as he has bilateral pneumonia, he is on vancomycin and Zosyn at this time and he also has a right groin abscess which was I and D'd as I am dictating ____ later on this evening and we will follow. The patient is really acutely ill. Jas Patel MD
[2017-08-04] MEDS: Piperacillin/Tazobact 3.375 GM in Sodium Chloride 100 ML IVPB SCH ×3 (04:00→18:59)
[2017-08-04] MEDS: Albuterol-Ipratrop 3 mg / 0.5 (3 ml) UD INH SCH ×4 (04:04→19:04)
--- NOTE | 2017-08-04 04:11 | CON ---
CARDIOLOGY CONSULT REASON FOR CONSULTATION: Short run of nonsustained ventricular tachycardia. HISTORY OF PRESENT ILLNESS: The patient is a 46 years old -[place] male who has history of diabetes mellitus for the past 6 years. 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 He presented because of shortness of breath, was treated for pneumonia and underwent incision and drainage for an upper inner right thigh abscess. The patient did have the previous abscess in the lower abdomen in the past. The patient denies any chest pain and is unaware of any cardiac history. The patient denies any palpitations or dizziness. The patient was known to have 6 beats of nonsustained ventricular tachycardia. The patient's magnesium level was 1.6. The patient denies any exertional dyspnea, retrosternal chest pain or leg edema. SOCIAL HISTORY: The patient is a former smoker. 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 The patient has no medical insurance and he buys his insulin in [place]. REVIEW OF SYSTEMS: No nausea or vomiting. No fever or chills. PHYSICAL EXAMINATION: GENERAL: The patient is a middle-age male who does not appear to be in acute distress. VITAL SIGNS: Blood pressure 125/74, heart rate 106, temperature 97.5 and respirations 20. HEENT: Normocephalic. CHEST: Minimal basal rhonchi. HEART: S1 and S2 regular. ABDOMEN: Soft. EXTREMITIES: 2+ right side edema and dressing is applied to the right upper inner thigh incision and drainage. LABORATORIES: Hemoglobin and hematocrit 10.3 and 29.3; white count 12.5 and platelet count 448,000. SMA-7: Sodium 136, potassium 3.8, chloride 102, CO2 of 21, glucose 189, BUN 7, creatinine 0.8. Magnesium is 1.6. I did review the echocardiograph study which revealed moderate, concentric LVH with normal ejection fraction, reduced compliance. Chest x-ray revealed mild CHF. ASSESSMENT: 1. Congestive diastolic heart failure. 2. Right upper inner thigh cellulitis, status post incision and drainage. 3. Hypertension. RECOMMENDATIONS: Case was discussed with Dr. Hickman and with the medical team. Discontinue IV fluids. Start Lasix 40 mg daily, K-Dur 20 mEq once a day, Somac 1 tablet once a day, magnesium sulfate 1 gram intravenous placement was initiated today. Obtain 12-lead EKG. Vitaliy Leavitt MD
[2017-08-04] MEDS: Morphine 4 MG/ML VIAL IVP PRN (07:00)
[2017-08-04 07:36] LABS: BASO # 0.1 K/uL (0.0-0.2); BASO % 0.8 % (0.0-2.0); EOS # 1.1 K/uL (0.0-0.7); EOS % 11.9 % (0.0-4.0); HEMATOCRIT 32.2 % (35.0-51.0); LYMPH # 2.2 K/uL (1.0-4.3); LYMPH % 22.7 % (20.0-40.0); MEAN CELL VOLUME 82.2 fL (80.0-94.0); MEAN CORPUSCULAR HEMOGLOBIN 28.6 pg (27.0-31.0); MEAN CORPUSCULAR HGB CONC 34.8 g/dL (33.0-37.0); MEAN PLATELET VOLUME 7.4 fL (7.2-11.7); MONO # 1.2 K/uL (0.0-0.8); MONO % 12.1 % (0.0-10.0); RED CELL DISTRIBUTION WIDTH 13.3 % (11.5-14.5); WHITE BLOOD COUNT 9.6 K/uL (4.8-10.8)
[2017-08-04] MEDS: (Novolin R) Insulin Human Regular 100 units/ml vial SC SCH ×4 (08:09→21:37)
[2017-08-04 08:25] LABS: CHLORIDE 101 mmol/L (98-107); SODIUM 138 mmol/L (132-148)
[2017-08-04 08:26] LABS: POTASSIUM 3.8 mmol/L (3.6-5.2)
[2017-08-04 08:28] LABS: ALB/GLOB RATIO 0.8 (1.0-2.1); ALKALINE PHOSPHATASE 158 U/L (38-126); AST/SGOT 35 U/L (17-59); BILIRUBIN,TOTAL 0.5 mg/dL (0.2-1.3); BLOOD UREA NITROGEN 6 mg/dL (9-20); CARBON DIOXIDE 25 mmol/L (22-30); GFR AFRICAN-AMERICAN > 60; GLUCOSE,RANDOM 289 mg/dL (75-110); PHOSPHOROUS 3.9 mg/dL (2.5-4.5); TOTAL PROTEIN 7.2 g/dL (6.3-8.3)
[2017-08-04 08:29] LABS: ALT/SGPT 59 U/L (21-72); CALCIUM 8.9 mg/dl (8.6-10.4); MAGNESIUM 1.6 mg/dL (1.6-2.3)
[2017-08-04] MEDS: (Novolog) Insulin Aspart, Recombinant 100 u/ml 10 ml vial SC SCH ×3 (08:32→16:30)
--- NOTE | 2017-08-04 09:22 | CP.PCM.PN ---
<Radha Jones - Last Filed: 08/04/17 13:44> Subjective - Date & Time of Evaluation Date of Evaluation: 08/04/17 Time of Evaluation: 07:00 - Subjective Subjective: PGY1- Medicine note- Dr. Hickman's Service Patient is sitting up in bed this morning. Patient is currently having breathing treatment. Patient has been tolerating nasal cannula for the past day. Patient states that his fevers/chills have decreased and is not having as many episodes of diaphoresis. Patient also states that he feels his lungs are clearing of sputum and his cough is improving. Patient had bowel movement this morning without issues and appetite is intact. Objective - Vital Signs/Intake and Output Vital Signs (last 24 hours): Temp Pulse Resp BP Pulse Ox 97.6 F 97 H 20 114/70 93 L 08/04/17 07:00 08/04/17 07:00 08/04/17 07:00 08/04/17 07:00 08/04/17 07:00 Intake and Output: 08/04/17 08/04/17 06:59 18:59 Intake Total 1860 Balance 1860 - Medications Medications: Current Medications Acetaminophen (Tylenol 325mg Tab) 650 mg PO Q6 PRN PRN Reason: Fever >100.4 F Last Admin: 08/03/17 22:14 Dose: 650 mg Albuterol/Ipratropium (Duoneb 3 Mg/0.5 Mg (3 Ml) Ud) 3 ml INH RQ6 [facility] Last Admin: 08/04/17 07:00 Dose: 3 ml Benzonatate (Tessalon Perles) 100 mg PO TID [facility] Last Admin: 08/03/17 17:52 Dose: 100 mg Calcium Acetate (Phoslo) 667 mg PO TIDCC [facility] Last Admin: 08/04/17 08:08 Dose: 667 mg Diphenhydramine HCl (Benadryl) 25 mg IVP Q6H PRN PRN Reason: Itching / Pruritus Last Admin: 08/03/17 01:45 Dose: 25 mg Docusate Sodium (Colace) 100 mg PO TID [facility] Last Admin: 08/03/17 17:52 Dose: 100 mg Enoxaparin Sodium (Lovenox) 40 mg SC DAILY [facility] Last Admin: 08/03/17 11:56 Dose: 40 mg Furosemide (Lasix) 40 mg IVP DAILY [facility] Last Admin: 08/03/17 12:33 Dose: 40 mg Piperacillin Sod/Tazobactam (Sod 3.375 gm/ Sodium Chloride) 100 mls @ 200 mls/ hr IVPB Q8H [facility] Last Admin: 08/04/17 04:00 Dose: 200 mls/hr Vancomycin HCl 1,400 mg/ (Sodium Chloride) 500 mls @ 250 mls/hr IVPB Q12H [facility] Last Admin: 08/04/17 02:13 Dose: 250 mls/hr Sodium Chloride (Sodium Chloride 0.9%) 1,000 mls @ 60 mls/hr IV .[id number] [facility] Last Admin: 08/03/17 19:47 Dose: 60 mls/hr Insulin Aspart (Novolog) 13 unit SC TIDAC [facility] Last Admin: 08/04/17 08:32 Dose: 13 unit Insulin Glargine (Lantus) 30 unit SC HS [facility] Last Admin: 08/03/17 22:13 Dose: 30 units Insulin Human Regular (Novolin R) 0 unit SC ACHS [facility] PRN Reason: Protocol Last Admin: 08/04/17 08:09 Dose: 8 unit Lisinopril (Zestril) 5 mg PO DAILY [facility] Last Admin: 08/03/17 11:56 Dose: 5 mg Magnesium Chloride (Slow-Mag) 64 mg PO DAILY [facility] Morphine Sulfate (Morphine) 4 mg IVP Q4 PRN PRN Reason: Pain, severe (8-10) Last Admin: 08/04/17 07:00 Dose: 4 mg Ondansetron HCl (Zofran Inj) 4 mg IVP Q6 [facility] Last Admin: 08/04/17 06:40 Dose: Not Given Pantoprazole Sodium (Protonix Ec Tab) 40 mg PO DAILY [facility] Last Admin: 08/03/17 11:56 Dose: 40 mg Potassium Chloride (K-Dur 20 Meq Er Tab) 20 meq PO DAILY [facility] Last Admin: 08/03/17 12:33 Dose: 20 meq - Labs Labs: 08/04/17 07:26 08/04/17 07:26 PT 13.9 SECONDS (9.7-12.2) H 07/30/17 18:33 INR 1.2 07/30/17 18:33 APTT 26 SECONDS (21-34) 07/30/17 18:33 - Constitutional Appears: Non-toxic, No Acute Distress - Head Exam Head Exam: ATRAUMATIC, NORMAL INSPECTION, NORMOCEPHALIC - Eye Exam Eye Exam: EOMI, Normal appearance - ENT Exam ENT Exam: Mucous Membranes Moist - Neck Exam Neck Exam: Full ROM. absent: Tenderness - Respiratory Exam Respiratory Exam: Wheezes, NORMAL BREATHING PATTERN Additional comments: on nasal cannula - Cardiovascular Exam Cardiovascular Exam: REGULAR RHYTHM, RRR. absent: Gallop, Rubs, Murmur - GI/Abdominal Exam GI & Abdominal Exam: Soft, Normal Bowel Sounds - Extremities Exam Extremities Exam: Full ROM, Normal Inspection. absent: Pedal Edema - Neurological Exam Neurological Exam: Alert, Awake, Oriented x3 - Psychiatric Exam Psychiatric exam: Normal Affect, Normal Mood - Skin Skin Exam: Intact, Normal Color, Warm Assessment and Plan - Assessment and Plan (Free Text) Assessment: Sepsis 2/2 PNA * WBC on 08/02 decreased from 18.4 to 15.6 * TLC L.IJ * NS stopped on 08/04 * Zosyn 3.3 IV Q8 * Vancomycin increased to 1400mg q 12h as per Dr. Patel (on 08/03/17) * Chest CT - Multilobar b/l pulm infiltrates, likely PNA * Lactate 4.1 --> 1.1 * Procalcitonin - 1.8 * duoneb treatments q6h * ICU consulted, Dr. Denis, help appreciated * Pulm consulted, Dr. Galan, help appreciated * ID consulted, Dr. Patel, help appreciated * ABG on 08/02: pCO2: 30, pO2: 44, pH: 7.48 * Chest CT on 08/02: 1.question of mild mediastinal subcarinal lymphadenopathy. suggestion of mild left hilar adenopathy as well 2. multifocal air space opacities with air bronchograms involving left upper lobe, right upper lobe, bilateral lower lobes and to a lesser extent the lingula and right middle lobe. most compatible with multifocal pneumonia. difficult to exclude a component of aspiration 3. question of trace b/l pleural effusions * CXRAY on 08/02: prominent diffuse increased interstitial lung markings throughout both lungs suggestive for edema and or infiltrate. patch airspace * HIV and Hep panel: negative * ABG on 08/03: pCo2: 37, pO2: 86, HCO3: 25.8, pH:7.44, SaO2: 99.6 * 08/04 Lactate decreased to 1.4 from 2.2 * f/u cxray R. Groin Abscess * Surgery ([facility]) * Bedside I/D * Dressing change per surgery team * bedside wound debridement on 08/03 * Wound culture - Beta hemolytic strep resistant to clinda * Zosyn 3.3 IV Q8 Tachycardia * patient transferred to telemetry floor on 08/02 for tachycardia * cardiology consulted Dr. Leavitt, help appreciated * Echo: normal size lv, ra, rv. LA mildly dilated, 4.1cm. normal lv wall motion , thickness, systolic and diastolic fxn with LVEF 55-60%, trace mr,tr, no pericardial effusion, normal size aortic root * patient started on Lasix 40 mg daily, Kdur 20 meq daily, and Slo-mag 1 tab daily on 08/[address] Leavitt Hx DM * HbA1c: 9.9 * Novalin 70/30 30 U BID AC discontinued on 08/03 * started Lantus 30 u HS, Novolog 10 u TIDAC * High Dose Insulin sliding scale * Accuchecks Hx HTN * Lisinopril 5mg PO QD Prophylaxis * Heparin * Protonix * Zofran PRN nausea * Florastor 250 mg PO daily <Maximiliano Hickman - Last Filed: 08/04/17 16:14> Objective - Vital Signs/Intake and Output Vital Signs (last 24 hours): Temp Pulse Resp BP Pulse Ox 99 F 97 H 20 115/69 99 08/04/17 15:05 08/04/17 15:05 08/04/17 15:05 08/04/17 15:05 08/04/17 15:05 Intake and Output: 08/04/17 08/04/17 06:59 18:59 Intake Total 1860 300 Balance 1860 300 - Medications Medications: Current Medications Acetaminophen (Tylenol 325mg Tab) 650 mg PO Q6 PRN PRN Reason: Fever >100.4 F Last Admin: 08/03/17 22:14 Dose: 650 mg Albuterol/Ipratropium (Duoneb 3 Mg/0.5 Mg (3 Ml) Ud) 3 ml INH RQ6 [facility] Last Admin: 08/04/17 12:58 Dose: 3 ml Benzonatate (Tessalon Perles) 100 mg PO TID [facility] Last Admin: 08/04/17 13:39 Dose: 100 mg Calcium Acetate (Phoslo) 667 mg PO TIDCC [facility] Last Admin: 08/04/17 11:27 Dose: 667 mg Diphenhydramine HCl (Benadryl) 25 mg IVP Q6H PRN PRN Reason: Itching / Pruritus Last Admin: 08/03/17 01:45 Dose: 25 mg Docusate Sodium (Colace) 100 mg PO TID [facility] Last Admin: 08/04/17 13:43 Dose: Not Given Enoxaparin Sodium (Lovenox) 40 mg SC DAILY [facility] Last Admin: 08/04/17 11:00 Dose: 40 mg Furosemide (Lasix) 40 mg IVP DAILY [facility] Last Admin: 08/04/17 11:34 Dose: 40 mg Piperacillin Sod/Tazobactam (Sod 3.375 gm/ Sodium Chloride) 100 mls @ 200 mls/ hr IVPB Q8H [facility] Last Admin: 08/04/17 11:29 Dose: 200 mls/hr Vancomycin HCl 1,400 mg/ (Sodium Chloride) 500 mls @ 250 mls/hr IVPB Q12H [facility] Last Admin: 08/04/17 13:33 Dose: 250 mls/hr Insulin Aspart (Novolog) 13 unit SC TIDAC [facility] Last Admin: 08/04/17 11:56 Dose: 13 unit Insulin Glargine (Lantus) 30 unit SC HS [facility] Last Admin: 08/03/17 22:13 Dose: 30 units Insulin Human Regular (Novolin R) 0 unit SC ACHS [facility] PRN Reason: Protocol Last Admin: 08/04/17 11:55 Dose: 8 unit Lisinopril (Zestril) 5 mg PO DAILY [facility] Last Admin: 08/04/17 11:28 Dose: 5 mg Magnesium Chloride (Slow-Mag) 64 mg PO DAILY [facility] Last Admin: 08/04/17 11:27 Dose: 64 mg Morphine Sulfate (Morphine) 4 mg IVP Q4 PRN PRN Reason: Pain, severe (8-10) Last Admin: 08/04/17 07:00 Dose: 4 mg Ondansetron HCl (Zofran Inj) 4 mg IVP Q6 [facility] Last Admin: 08/04/17 11:28 Dose: 4 mg Pantoprazole Sodium (Protonix Ec Tab) 40 mg PO DAILY [facility] Last Admin: 08/04/17 11:28 Dose: 40 mg Potassium Chloride (K-Dur 20 Meq Er Tab) 20 meq PO DAILY [facility] Last Admin: 08/04/17 11:28 Dose: 20 meq Saccharomyces Boulardii (Florastor) 250 mg PO DAILY [facility] Last Admin: 08/04/17 13:39 Dose: 250 mg - Labs Labs: 08/04/17 07:26 08/04/17 07:26 PT 13.9 SECONDS (9.7-12.2) H 07/30/17 18:33 INR 1.2 07/30/17 18:33 APTT 26 SECONDS (21-34) 07/30/17 18:33 Attending/Attestation - Attestation I have personally seen and examined this patient.: Yes I have fully participated in the care of the patient.: Yes I have reviewed all pertinent clinical information, including history, physical exam and plan: Yes Notes (Text): 08/04/17 16:13 Patient was seen and examined at bedside with the resident Patient states that breathing has improved today Patient is on oxygen by nasal cannula at 4 L/m We will continue IV antibiotic for pneumonia Surgical dressing present on the thigh at the site of I&D of the abscess. Discussed the plan of care with the resident and agree with the history and physical and assessment/plan documented by the resident.
[2017-08-04] MEDS: Magnesium Chloride 64 mg ER Tab PO SCH (10:27)
[2017-08-04] MEDS: Potassium Chloride 20 mEq ER Tab PO SCH (10:28)
--- NOTE | 2017-08-04 10:29 | CP.PCM.PN ---
<BurtonEmeka - Last Filed: 08/04/17 10:26> Subjective - Date & Time of Evaluation Date of Evaluation: 08/04/17 Time of Evaluation: 10:26 - Subjective Subjective: Surgery Pt s&e. Bedside wound debridement yesterday. Tolerated it well. Dressing changed. Denies F/C/N/V/D/Cp. Objective - Vital Signs/Intake and Output Vital Signs (last 24 hours): Temp Pulse Resp BP Pulse Ox 97.6 F 97 H 20 114/70 93 L 08/04/17 07:00 08/04/17 07:00 08/04/17 07:00 08/04/17 07:00 08/04/17 07:00 Intake and Output: 08/04/17 08/04/17 06:59 18:59 Intake Total 1860 Balance 1860 - Medications Medications: Current Medications Acetaminophen (Tylenol 325mg Tab) 650 mg PO Q6 PRN PRN Reason: Fever >100.4 F Last Admin: 08/03/17 22:14 Dose: 650 mg Albuterol/Ipratropium (Duoneb 3 Mg/0.5 Mg (3 Ml) Ud) 3 ml INH RQ6 [facility] Last Admin: 08/04/17 07:00 Dose: 3 ml Benzonatate (Tessalon Perles) 100 mg PO TID [facility] Last Admin: 08/03/17 17:52 Dose: 100 mg Calcium Acetate (Phoslo) 667 mg PO TIDCC [facility] Last Admin: 08/04/17 08:08 Dose: 667 mg Diphenhydramine HCl (Benadryl) 25 mg IVP Q6H PRN PRN Reason: Itching / Pruritus Last Admin: 08/03/17 01:45 Dose: 25 mg Docusate Sodium (Colace) 100 mg PO TID [facility] Last Admin: 08/03/17 17:52 Dose: 100 mg Enoxaparin Sodium (Lovenox) 40 mg SC DAILY [facility] Last Admin: 08/03/17 11:56 Dose: 40 mg Furosemide (Lasix) 40 mg IVP DAILY [facility] Last Admin: 08/03/17 12:33 Dose: 40 mg Piperacillin Sod/Tazobactam (Sod 3.375 gm/ Sodium Chloride) 100 mls @ 200 mls/ hr IVPB Q8H [facility] Last Admin: 08/04/17 04:00 Dose: 200 mls/hr Vancomycin HCl 1,400 mg/ (Sodium Chloride) 500 mls @ 250 mls/hr IVPB Q12H [facility] Last Admin: 08/04/17 02:13 Dose: 250 mls/hr Sodium Chloride (Sodium Chloride 0.9%) 1,000 mls @ 60 mls/hr IV .[id number] [facility] Last Admin: 08/03/17 19:47 Dose: 60 mls/hr Insulin Aspart (Novolog) 13 unit SC TIDAC [facility] Last Admin: 08/04/17 08:32 Dose: 13 unit Insulin Glargine (Lantus) 30 unit SC HS [facility] Last Admin: 08/03/17 22:13 Dose: 30 units Insulin Human Regular (Novolin R) 0 unit SC ACHS [facility] PRN Reason: Protocol Last Admin: 08/04/17 08:09 Dose: 8 unit Lisinopril (Zestril) 5 mg PO DAILY [facility] Last Admin: 08/03/17 11:56 Dose: 5 mg Magnesium Chloride (Slow-Mag) 64 mg PO DAILY [facility] Morphine Sulfate (Morphine) 4 mg IVP Q4 PRN PRN Reason: Pain, severe (8-10) Last Admin: 08/04/17 07:00 Dose: 4 mg Ondansetron HCl (Zofran Inj) 4 mg IVP Q6 [facility] Last Admin: 08/04/17 06:40 Dose: Not Given Pantoprazole Sodium (Protonix Ec Tab) 40 mg PO DAILY [facility] Last Admin: 08/03/17 11:56 Dose: 40 mg Potassium Chloride (K-Dur 20 Meq Er Tab) 20 meq PO DAILY [facility] Last Admin: 08/03/17 12:33 Dose: 20 meq - Labs Labs: 08/04/17 07:26 08/04/17 07:26 PT 13.9 SECONDS (9.7-12.2) H 07/30/17 18:33 INR 1.2 07/30/17 18:33 APTT 26 SECONDS (21-34) 07/30/17 18:33 - Constitutional Appears: No Acute Distress - Head Exam Head Exam: ATRAUMATIC, NORMAL INSPECTION, NORMOCEPHALIC - Eye Exam Eye Exam: EOMI, Normal appearance, PERRL Pupil Exam: NORMAL ACCOMODATION, PERRL - ENT Exam ENT Exam: Mucous Membranes Moist, Normal Exam - Neck Exam Neck Exam: Full ROM - Respiratory Exam Respiratory Exam: Clear to Ausculation Bilateral, NORMAL BREATHING PATTERN - Cardiovascular Exam Cardiovascular Exam: REGULAR RHYTHM, +S1, +S2. absent: Murmur - GI/Abdominal Exam GI & Abdominal Exam: Soft, Normal Bowel Sounds. absent: Tenderness - Exam Exam: NORMAL INSPECTION - Extremities Exam Extremities Exam: Full ROM, Normal Capillary Refill, Tenderness. absent: Normal Inspection Additional comments: R groin 3x5cm open wound. Dressing changed. - Back Exam Back Exam: NORMAL INSPECTION - Neurological Exam Neurological Exam: Alert, Awake, CN II-XII Intact, Oriented x3 - Psychiatric Exam Psychiatric exam: Normal Affect, Normal Mood - Skin Skin Exam: Erythema, Warm. absent: Cyanosis Assessment and Plan - Assessment and Plan (Free Text) Assessment: POD 4 sp I&D of R groin POD 1 sp wond denridement ABX Medical management Dressing change with 4x4 gauze and tape PRN. Will DW Dr. Srivastava <Stefan Srivastava B - Last Filed: 08/04/17 18:59> Objective - Vital Signs/Intake and Output Vital Signs (last 24 hours): Temp Pulse Resp BP Pulse Ox 99 F 98 H 20 115/69 99 08/04/17 15:05 08/04/17 15:30 08/04/17 15:05 08/04/17 15:05 08/04/17 15:05 Intake and Output: 08/04/17 08/04/17 06:59 18:59 Intake Total 1860 300 Balance 1860 300 - Medications Medications: Current Medications Acetaminophen (Tylenol 325mg Tab) 650 mg PO Q6 PRN PRN Reason: Fever >100.4 F Last Admin: 08/03/17 22:14 Dose: 650 mg Albuterol/Ipratropium (Duoneb 3 Mg/0.5 Mg (3 Ml) Ud) 3 ml INH RQ6 [facility] Last Admin: 08/04/17 12:58 Dose: 3 ml Benzonatate (Tessalon Perles) 100 mg PO TID [facility] Last Admin: 08/04/17 13:39 Dose: 100 mg Calcium Acetate (Phoslo) 667 mg PO TIDCC [facility] Last Admin: 08/04/17 11:27 Dose: 667 mg Diphenhydramine HCl (Benadryl) 25 mg IVP Q6H PRN PRN Reason: Itching / Pruritus Last Admin: 08/03/17 01:45 Dose: 25 mg Docusate Sodium (Colace) 100 mg PO TID [facility] Last Admin: 08/04/17 13:43 Dose: Not Given Enoxaparin Sodium (Lovenox) 40 mg SC DAILY [facility] Last Admin: 08/04/17 11:00 Dose: 40 mg Furosemide (Lasix) 40 mg IVP DAILY [facility] Last Admin: 08/04/17 11:34 Dose: 40 mg Piperacillin Sod/Tazobactam (Sod 3.375 gm/ Sodium Chloride) 100 mls @ 200 mls/ hr IVPB Q8H [facility] Last Admin: 08/04/17 11:29 Dose: 200 mls/hr Vancomycin HCl 1,400 mg/ (Sodium Chloride) 500 mls @ 250 mls/hr IVPB Q12H [facility] Last Admin: 08/04/17 13:33 Dose: 250 mls/hr Insulin Aspart (Novolog) 13 unit SC TIDAC [facility] Last Admin: 08/04/17 11:56 Dose: 13 unit Insulin Glargine (Lantus) 30 unit SC HS [facility] Last Admin: 08/03/17 22:13 Dose: 30 units Insulin Human Regular (Novolin R) 0 unit SC ACHS [facility] PRN Reason: Protocol Last Admin: 08/04/17 11:55 Dose: 8 unit Lisinopril (Zestril) 5 mg PO DAILY [facility] Last Admin: 08/04/17 11:28 Dose: 5 mg Magnesium Chloride (Slow-Mag) 64 mg PO DAILY [facility] Last Admin: 08/04/17 11:27 Dose: 64 mg Morphine Sulfate (Morphine) 4 mg IVP Q4 PRN PRN Reason: Pain, severe (8-10) Last Admin: 08/04/17 07:00 Dose: 4 mg Ondansetron HCl (Zofran Inj) 4 mg IVP Q6 [facility] Last Admin: 08/04/17 11:28 Dose: 4 mg Pantoprazole Sodium (Protonix Ec Tab) 40 mg PO DAILY [facility] Last Admin: 08/04/17 11:28 Dose: 40 mg Potassium Chloride (K-Dur 20 Meq Er Tab) 20 meq PO DAILY [facility] Last Admin: 08/04/17 11:28 Dose: 20 meq Saccharomyces Boulardii (Florastor) 250 mg PO DAILY [facility] Last Admin: 08/04/17 13:39 Dose: 250 mg - Labs Labs: 08/04/17 07:26 08/04/17 07:26 PT 13.9 SECONDS (9.7-12.2) H 07/30/17 18:33 INR 1.2 07/30/17 18:33 APTT 26 SECONDS (21-34) 07/30/17 18:33 Attending/Attestation - Attestation I have personally seen and examined this patient.: Yes I have fully participated in the care of the patient.: Yes I have reviewed all pertinent clinical information, including history, physical exam and plan: Yes Notes (Text): 08/04/17 18:58 Pt was seen and examined at bedside Agree with above note and assessment Wound care consult for right groin wound f/u prn Plan d.w pt in detail C/w current mx for pneumonia
[2017-08-04] MEDS: Enoxaparin 40 mg Syringe SC SCH (11:00)
[2017-08-04] MEDS: Pantoprazole 40 mg EC Tab PO SCH (11:28)
[2017-08-04] MEDS: Saccharomyces Boulardi 250 mg Cap PO SCH (13:39)
--- NOTE | 2017-08-04 14:29 | RAD ---
HISTORY: shortness of breath COMPARISON: Portable chest 08/02/2017. FINDINGS: Stable left central venous line. Sign or LUNGS: Diminished bilateral infiltrates or atelectasis is noted. PLEURA: No significant pleural effusion identified, no pneumothorax apparent. CARDIOVASCULAR: Cardiac silhouette appears stable with significantly diminished pulmonary vascular pattern indicating improving CHF. OSSEOUS STRUCTURES: No significant abnormalities. VISUALIZED UPPER ABDOMEN: Normal. OTHER FINDINGS: None. IMPRESSION: Significantly improved CHF with limited residual. Bilateral basilar atelectasis or infiltrate is minimal at this time as well.
--- NOTE | 2017-08-04 19:31 | PN ---
DATE: 08/04/2017 SUBJECTIVE: The patient denies any chest pain. He was mildly short of breath, improved after nebulizer therapy. PHYSICAL EXAMINATION: VITAL SIGNS: Blood pressure 119/74, heart rate 80, temperature 97.6, respirations 20. HEENT: Normocephalic. CHEST: Minimal rhonchi. HEART: S1 and S2, regular. EXTREMITIES: No edema. LABORATORY DATA: Hemoglobin and hematocrit 11.2 and 32.2, white count 9.6, platelet count 515,000. Today's blood sugar is 289. BUN and creatinine are 6 and 0.7 respectively. ASSESSMENT: 1. Short run of nonsustained ventricular tachycardia. 2. Uncontrolled diabetes mellitus. 3. Borderline hypomagnesemia. 4. Pneumonia. RECOMMENDATIONS: Continue current albuterol inhaler. Continue K-Dur 20 mEq once a day, Lasix 40 mg once a day, subcutaneous Lovenox 40 mg once a day, Slow-Mag 1 tablet daily. Continue IV vancomycin at 1.4 g q. 12 hours. Continue Zestril 5 mg once a day and IV Zofran p.r.n. Official report of today's chest x-ray stated significantly improved CHF with limited residual bilateral bibasilar atelectasis or infiltrate. Official echo report stated poor window, normal left ventricular wall motion, normal ejection fraction, normal cardiac root size. Vitaliy Leavitt MD
[2017-08-04] MEDS: (Lantus) Insulin Glargine, Recombinant SC SCH (21:36)
[2017-08-05] MEDS: Albuterol-Ipratrop 3 mg / 0.5 (3 ml) UD INH SCH ×3 (01:06→20:45)
[2017-08-05] MEDS: Piperacillin/Tazobact 3.375 GM in Sodium Chloride 100 ML IVPB SCH ×3 (03:11→19:58)
[2017-08-05 07:42] LABS: CHLORIDE 101 mmol/L (98-107); POTASSIUM 3.4 mmol/L (3.6-5.2); SODIUM 138 mmol/L (132-148)
[2017-08-05 07:43] LABS: BILIRUBIN,TOTAL 0.4 mg/dL (0.2-1.3); GFR AFRICAN-AMERICAN > 60
[2017-08-05 07:44] LABS: ALB/GLOB RATIO 0.8 (1.0-2.1); ALKALINE PHOSPHATASE 113 U/L (38-126); ALT/SGPT 57 U/L (21-72); AST/SGOT 33 U/L (17-59); BLOOD UREA NITROGEN 6 mg/dL (9-20); CARBON DIOXIDE 27 mmol/L (22-30); GLUCOSE,RANDOM 147 mg/dL (75-110); PHOSPHOROUS 4.1 mg/dL (2.5-4.5); TOTAL PROTEIN 6.5 g/dL (6.3-8.3)
[2017-08-05 07:45] LABS: CALCIUM 8.7 mg/dl (8.6-10.4); MAGNESIUM 1.4 mg/dL (1.6-2.3)
[2017-08-05] MEDS: (Novolin R) Insulin Human Regular 100 units/ml vial SC SCH ×4 (07:49→22:47)
[2017-08-05 07:50] LABS: BASO # 0.1 K/uL (0.0-0.2); BASO % 1.2 % (0.0-2.0); EOS # 1.1 K/uL (0.0-0.7); EOS % 12.6 % (0.0-4.0); HEMATOCRIT 30.5 % (35.0-51.0); LYMPH % 22.6 % (20.0-40.0); MEAN CORPUSCULAR HEMOGLOBIN 28.2 pg (27.0-31.0); MEAN CORPUSCULAR HGB CONC 34.3 g/dL (33.0-37.0); MEAN PLATELET VOLUME 7.5 fL (7.2-11.7); MONO # 1.2 K/uL (0.0-0.8); MONO % 13.2 % (0.0-10.0); NRBC % 0.1 % (0.0-2.0); RED CELL DISTRIBUTION WIDTH 13.3 % (11.5-14.5)
[2017-08-05] MEDS: (Novolog) Insulin Aspart, Recombinant 100 u/ml 10 ml vial SC SCH ×3 (07:50→17:32)
--- NOTE | 2017-08-05 09:23 | CP.PCM.PN ---
<Radha Jones - Last Filed: 08/05/17 15:32> Subjective - Date & Time of Evaluation Date of Evaluation: 08/05/17 Time of Evaluation: 07:00 - Subjective Subjective: PGY1- medicine note- Dr. Hickman's service Patient seen and examined at bedside and in no acute distress. Patient able to breath on room air since last night. Patient has soft/ runny stool when he has a BM about once per day. Patient says he is feeling better. Patient denies chest pain, shortness of breath, abdominal pain, nausea, vomiting, constipation. Objective - Vital Signs/Intake and Output Vital Signs (last 24 hours): Temp Pulse Resp BP Pulse Ox 98.3 F 92 H 20 145/84 99 08/05/17 07:00 08/05/17 07:00 08/05/17 07:00 08/05/17 07:00 08/05/17 07:00 Intake and Output: 08/05/17 08/05/17 06:59 18:59 Intake Total 600 Balance 600 - Medications Medications: Current Medications Acetaminophen (Tylenol 325mg Tab) 650 mg PO Q6 PRN PRN Reason: Fever >100.4 F Last Admin: 08/04/17 21:35 Dose: 650 mg Albuterol/Ipratropium (Duoneb 3 Mg/0.5 Mg (3 Ml) Ud) 3 ml INH RQ6 [facility] Last Admin: 08/05/17 09:14 Dose: 3 ml Benzonatate (Tessalon Perles) 100 mg PO TID [facility] Last Admin: 08/04/17 18:57 Dose: 100 mg Calcium Acetate (Phoslo) 667 mg PO TIDCC [facility] Last Admin: 08/05/17 07:49 Dose: 667 mg Diphenhydramine HCl (Benadryl) 25 mg IVP Q6H PRN PRN Reason: Itching / Pruritus Last Admin: 08/03/17 01:45 Dose: 25 mg Docusate Sodium (Colace) 100 mg PO TID [facility] Last Admin: 08/04/17 19:03 Dose: Not Given Enoxaparin Sodium (Lovenox) 40 mg SC DAILY [facility] Last Admin: 08/04/17 11:00 Dose: 40 mg Furosemide (Lasix) 40 mg IVP DAILY [facility] Last Admin: 08/04/17 11:34 Dose: 40 mg Piperacillin Sod/Tazobactam (Sod 3.375 gm/ Sodium Chloride) 100 mls @ 200 mls/ hr IVPB Q8H [facility] Last Admin: 08/05/17 03:11 Dose: 200 mls/hr Vancomycin HCl 1,400 mg/ (Sodium Chloride) 500 mls @ 250 mls/hr IVPB Q12H [facility] Last Admin: 08/05/17 01:03 Dose: 250 mls/hr Magnesium Sulfate/Dextrose (Magnesium Sulfate 1 Gm/100 Ml D5w) 1 gm in 100 mls @ 200 mls/hr IVPB ONCE ONE Stop: 08/05/17 09:48 Insulin Aspart (Novolog) 13 unit SC TIDAC [facility] Last Admin: 08/05/17 07:50 Dose: 13 unit Insulin Glargine (Lantus) 30 unit SC HS [facility] Last Admin: 08/04/17 21:36 Dose: 30 units Insulin Human Regular (Novolin R) 0 unit SC ACHS [facility] PRN Reason: Protocol Last Admin: 08/05/17 07:49 Dose: 2 unit Lisinopril (Zestril) 5 mg PO DAILY [facility] Last Admin: 08/04/17 11:28 Dose: 5 mg Magnesium Chloride (Slow-Mag) 64 mg PO DAILY [facility] Last Admin: 08/04/17 11:27 Dose: 64 mg Morphine Sulfate (Morphine) 4 mg IVP Q4 PRN PRN Reason: Pain, severe (8-10) Last Admin: 08/04/17 07:00 Dose: 4 mg Ondansetron HCl (Zofran Inj) 4 mg IVP Q6 [facility] Last Admin: 08/05/17 05:21 Dose: Not Given Pantoprazole Sodium (Protonix Ec Tab) 40 mg PO DAILY [facility] Last Admin: 08/04/17 11:28 Dose: 40 mg Potassium Chloride (K-Dur 20 Meq Er Tab) 20 meq PO DAILY [facility] Last Admin: 08/04/17 11:28 Dose: 20 meq Potassium Chloride (K-Dur 20 Meq Er Tab) 40 meq PO DAILY [facility] Saccharomyces Boulardii (Florastor) 250 mg PO DAILY [facility] Last Admin: 08/04/17 13:39 Dose: 250 mg - Labs Labs: 08/05/17 07:18 08/05/17 04:00 PT 13.9 SECONDS (9.7-12.2) H 07/30/17 18:33 INR 1.2 07/30/17 18:33 APTT 26 SECONDS (21-34) 07/30/17 18:33 - Constitutional Appears: Non-toxic, No Acute Distress - Head Exam Head Exam: ATRAUMATIC, NORMAL INSPECTION, NORMOCEPHALIC - Eye Exam Eye Exam: EOMI, Normal appearance - ENT Exam ENT Exam: Mucous Membranes Moist - Neck Exam Neck Exam: Full ROM, Normal Inspection - Respiratory Exam Respiratory Exam: Rales, NORMAL BREATHING PATTERN - Cardiovascular Exam Cardiovascular Exam: REGULAR RHYTHM, RRR. absent: Gallop, Rubs, Murmur - GI/Abdominal Exam GI & Abdominal Exam: Soft, Normal Bowel Sounds - Extremities Exam Extremities Exam: Full ROM, Normal Inspection, Pedal Edema Additional comments: 1+ b/l pitting edema - Neurological Exam Neurological Exam: Alert, Awake, Oriented x3 - Psychiatric Exam Psychiatric exam: Normal Affect, Normal Mood - Skin Skin Exam: Intact, Normal Color, Warm Assessment and Plan - Assessment and Plan (Free Text) Assessment: Sepsis 2/2 PNA * WBC on 08/02 decreased from 18.4 to 15.6 * TLC L.IJ * NS stopped on 08/04 * Zosyn 3.3 IV Q8 * Vancomycin increased to 1400mg q 12h as per Dr. Patel (on 08/03/17) * peak : 14, trough: 7.2 * Chest CT - Multilobar b/l pulm infiltrates, likely PNA * Lactate 4.1 --> 1.1 * Procalcitonin - 1.8 * duoneb treatments q6h * ICU consulted, Dr. Denis, help appreciated * Pulm consulted, Dr. Galan, help appreciated * ID consulted, Dr. Patel, help appreciated * ABG on 08/02: pCO2: 30, pO2: 44, pH: 7.48 * Chest CT on 08/02: 1.question of mild mediastinal subcarinal lymphadenopathy. suggestion of mild left hilar adenopathy as well 2. multifocal air space opacities with air bronchograms involving left upper lobe, right upper lobe, bilateral lower lobes and to a lesser extent the lingula and right middle lobe. most compatible with multifocal pneumonia. difficult to exclude a component of aspiration 3. question of trace b/l pleural effusions * CXRAY on 08/02: prominent diffuse increased interstitial lung markings throughout both lungs suggestive for edema and or infiltrate. patch airspace * HIV and Hep panel: negative * ABG on 08/03: pCo2: 37, pO2: 86, HCO3: 25.8, pH:7.44, SaO2: 99.6 * 08/04 Lactate decreased to 1.4 from 2.2 * f/u cxray 08/04: significantly improved CHF with limited residual. Bilateral basilar atelectasis or infiltrate is minimal at this time as well R. Groin Abscess * Surgery ([facility]) * Bedside I/D * Dressing change per surgery team * bedside wound debridement on 08/03 * Wound culture - Beta hemolytic strep resistant to clinda * Zosyn 3.3 IV Q8 * follow up with wound care recommendations Tachycardia * patient transferred to telemetry floor on 08/02 for tachycardia * cardiology consulted Dr. Leavitt, help appreciated * Echo: normal size lv, ra, rv. LA mildly dilated, 4.1cm. normal lv wall motion , thickness, systolic and diastolic fxn with LVEF 55-60%, trace mr,tr, no pericardial effusion, normal size aortic root * patient started on Lasix 40 mg daily, Kdur 20 meq daily, and Slo-mag 1 tab daily on 08/[address] Leavitt Hypokalemia 3.4 on 08/05, Kdur 40 given Hypomagnesemia 1.4 on 08/05 Mag Sulfate 2 gm given Hx DM * HbA1c: 9.9 * Novalin 70/30 30 U BID AC discontinued on 08/03 * started Lantus 30 u HS, Novolog 10 u TIDAC * High Dose Insulin sliding scale * Accuchecks Hx HTN * Lisinopril 5mg PO QD Prophylaxis * Heparin * Protonix * Zofran PRN nausea * Florastor 250 mg PO daily <Maximiliano Hickman - Last Filed: 08/09/17 23:44> Objective - Vital Signs/Intake and Output Vital Signs (last 24 hours): Temp Pulse Resp BP Pulse Ox 98.2 F 94 H 20 131/85 95 08/06/17 15:00 08/06/17 15:00 08/06/17 15:00 08/06/17 15:00 08/06/17 15:00 - Labs Labs: 08/06/17 06:28 08/06/17 06:28 PT 13.9 SECONDS (9.7-12.2) H 07/30/17 18:33 INR 1.2 07/30/17 18:33 APTT 26 SECONDS (21-34) 07/30/17 18:33 Attending/Attestation - Attestation I have personally seen and examined this patient.: Yes I have fully participated in the care of the patient.: Yes I have reviewed all pertinent clinical information, including history, physical exam and plan: Yes Notes (Text): 08/09/17 23:44 patient was seen and examined at bedside with the resident This is a late computer entry Patient is clinically improving Continue IV antibiotics as per recommendations of ID. I agree with the assessment and plan documented by the resident.
[2017-08-05] MEDS ORDERED: Magnesium Sulfate 1 gm in D5W 1 GM/100 ML BAG IVPB ONE ×2 (09:30→11:00)
[2017-08-05] MEDS: Potassium Chloride 20 mEq ER Tab PO SCH ×2 (10:22→10:32)
[2017-08-05] MEDS: Magnesium Chloride 64 mg ER Tab PO SCH (10:22)
[2017-08-05] MEDS: Pantoprazole 40 mg EC Tab PO SCH (10:22)
[2017-08-05] MEDS: Enoxaparin 40 mg Syringe SC SCH (10:23)
[2017-08-05] MEDS: Saccharomyces Boulardi 250 mg Cap PO SCH (10:32)
--- NOTE | 2017-08-05 19:45 | PN ---
SUBJECTIVE: The patient denies any chest pain. His shortness of breath has improved. PHYSICAL EXAMINATION: VITAL SIGNS: Blood pressure 132/84, heart rate 92, temperature 98.3, respirations 20. HEENT: Normocephalic. CHEST: Minimal rhonchi. HEART: S1 and S2, regular. EXTREMITIES: No edema. LABORATORY DATA: Today's potassium is 3.4, glucose is elevated at 147. Hemoglobin and hematocrit 10.5 and 30.5; white count 9.0 and platelet count 488,000. Yesterday's chest x-ray reported significantly improved CHF, bibasilar atelectasis or infiltrate. ASSESSMENT: 1. Diastolic heart failure. 2. Consider underlying pneumonia. 3. Uncontrolled diabetes mellitus. 4. Hypokalemia. 5. Right side abscess, status post incision and drainage. 6. Nonsustained ventricular tachycardia. RECOMMENDATIONS: Continue current K-Dur 20 mEq daily. The patient received an additional dose of 20 mEq today. Continue Lasix 40 mg intravenously daily. Continue Zosyn at 3.375 g intravenously q. 8 hours, Slow-Mag at 1 tablet daily, vancomycin at 1.4 g intravenously q. 12 hours, Zestril 5 mg once a day. Today's magnesium level is 1.4, and the patient had received further IV magnesium replacement. Vitaliy Leavitt MD
[2017-08-05] MEDS: Morphine 4 MG/ML VIAL IVP PRN (21:06)
[2017-08-05] MEDS: (Lantus) Insulin Glargine, Recombinant SC SCH (22:51)
[2017-08-06] MEDS: Albuterol-Ipratrop 3 mg / 0.5 (3 ml) UD INH SCH ×3 (01:06→13:23)
[2017-08-06] MEDS: Piperacillin/Tazobact 3.375 GM in Sodium Chloride 100 ML IVPB SCH ×2 (03:48→10:30)
[2017-08-06 06:43] LABS: BASO # 0.1 K/uL (0.0-0.2); EOS % 9.6 % (0.0-4.0); HEMATOCRIT 32.1 % (35.0-51.0); LYMPH # 2.1 K/uL (1.0-4.3); LYMPH % 21.3 % (20.0-40.0); MEAN CELL VOLUME 82.3 fL (80.0-94.0); MEAN CORPUSCULAR HEMOGLOBIN 27.8 pg (27.0-31.0); MEAN CORPUSCULAR HGB CONC 33.8 g/dL (33.0-37.0); MEAN PLATELET VOLUME 7.1 fL (7.2-11.7); MONO # 1.2 K/uL (0.0-0.8); MONO % 12.5 % (0.0-10.0); RED CELL DISTRIBUTION WIDTH 13.4 % (11.5-14.5); WHITE BLOOD COUNT 9.9 K/uL (4.8-10.8)
[2017-08-06 06:48] LABS: CHLORIDE 101 mmol/L (98-107); SODIUM 134 mmol/L (132-148)
[2017-08-06 06:50] LABS: CARBON DIOXIDE 24 mmol/L (22-30); GFR AFRICAN-AMERICAN > 60
[2017-08-06 06:51] LABS: ALB/GLOB RATIO 0.9 (1.0-2.1); ALKALINE PHOSPHATASE 100 U/L (38-126); ALT/SGPT 52 U/L (21-72); AST/SGOT 35 U/L (17-59); BILIRUBIN,TOTAL 0.2 mg/dL (0.2-1.3); BLOOD UREA NITROGEN 7 mg/dL (9-20); CALCIUM 8.7 mg/dl (8.6-10.4); GLUCOSE,RANDOM 110 mg/dL (75-110); PHOSPHOROUS 4.4 mg/dL (2.5-4.5); TOTAL PROTEIN 6.3 g/dL (6.3-8.3)
[2017-08-06 06:52] LABS: MAGNESIUM 1.6 mg/dL (1.6-2.3)
[2017-08-06] MEDS: (Novolin R) Insulin Human Regular 100 units/ml vial SC SCH ×2 (07:30→12:41)
[2017-08-06] MEDS: (Novolog) Insulin Aspart, Recombinant 100 u/ml 10 ml vial SC SCH ×2 (08:37→12:40)
[2017-08-06] MEDS: Potassium Chloride 20 mEq ER Tab PO SCH ×2 (09:08→09:09)
[2017-08-06] MEDS: Saccharomyces Boulardi 250 mg Cap PO SCH (09:11)
[2017-08-06] MEDS: Pantoprazole 40 mg EC Tab PO SCH (09:11)
[2017-08-06] MEDS: Enoxaparin 40 mg Syringe SC SCH (09:11)
[2017-08-06] MEDS: Magnesium Chloride 64 mg ER Tab PO SCH (09:13)
[2017-08-06] MEDS ORDERED: Magnesium Sulfate 1 gm in D5W 1 GM/100 ML BAG IVPB ONE (09:26)
[2017-08-06 15:58] VITALS: BP 131/85; PULSE 94; TEMP 98.2; O2SAT 95
[2017-08-06] MEDS ORDERED: Magnesium Chloride 64 mg ER Tab PO SCH (18:00)
--- NOTE | 2017-08-06 18:18 | CP.PCM.DIS ---
<Radha Jones - Last Filed: 08/06/17 18:20> Provider - Provider Date of Admission: 07/30/17 18:51 Attending physician: Maximiliano Hickman MD Consults: Dr. Srivastava (surg) Dr. Denis (ICU) Dr. Galan (pulm) Dr. Patel (ID) Time Spent in preparation of Discharge (in minutes): 45 Diagnosis - Discharge Diagnosis (1) Sepsis Status: Resolved (2) Cellulitis of right thigh Status: Acute (3) Pneumonia Status: Resolved (4) Uncontrolled diabetes mellitus Status: Chronic Hospital Course - Lab Results Lab Results: Micro Results 07/31/17 13:00 Sputum Gram Stain - Final 07/31/17 13:00 Sputum Sputum Culture - Final NORMAL ORAL JIM 07/30/17 21:16 Groin Gram Stain - Final 07/30/17 21:16 Groin Wound Culture - Final Beta Hemolytic Strep Group B 07/31/17 16:30 Abscess - Groin Gram Stain - Final 07/31/17 16:30 Abscess - Groin Wound Culture - Final Beta Hemolytic Strep Group B 07/30/17 19:33 Groin Gram Stain - Final 07/30/17 19:33 Groin Wound Culture - Final Beta Hemolytic Strep Group B 07/31/17 13:00 Urine,Catheterized Urine Culture - Final No Growth (<1,000 CFU/ML) Most Recent Lab Values WBC 9.9 K/uL (4.8-10.8) 08/06/17 06:28 RBC 3.90 Mil/uL (4.40-5.90) L 08/06/17 06:28 Hgb 10.8 g/dL (12.0-18.0) L 08/06/17 06:28 Hct 32.1 % (35.0-51.0) L 08/06/17 06:28 MCV 82.3 fL (80.0-94.0) 08/06/17 06:28 MCH 27.8 pg (27.0-31.0) 08/06/17 06:28 MCHC 33.8 g/dL (33.0-37.0) 08/06/17 06:28 RDW 13.4 % (11.5-14.5) 08/06/17 06:28 Plt Count 544 K/uL (130-400) H 08/06/17 06:28 MPV 7.1 fL (7.2-11.7) L 08/06/17 06:28 Neut % (Auto) 55.6 % (50.0-75.0) 08/06/17 06:28 Lymph % (Auto) 21.3 % (20.0-40.0) 08/06/17 06:28 Saunders % (Auto) 12.5 % (0.0-10.0) H 08/06/17 06:28 Eos % (Auto) 9.6 % (0.0-4.0) H 08/06/17 06:28 Baso % (Auto) 1.0 % (0.0-2.0) 08/06/17 06:28 Neut # 5.5 K/uL (1.8-7.0) 08/06/17 06:28 Lymph # 2.1 K/uL (1.0-4.3) 08/06/17 06:28 Saunders # 1.2 K/uL (0.0-0.8) H 08/06/17 06:28 Eos # 1.0 K/uL (0.0-0.7) H 08/06/17 06:28 Baso # 0.1 K/uL (0.0-0.2) 08/06/17 06:28 Neutrophils % (Manual) 82 % (50-75) H 07/31/17 08:23 Band Neutrophils % 1 % (0-2) 07/31/17 08:23 Lymphocytes % (Manual) 6 % (20-40) L 07/31/17 08:23 Reactive Lymphs % 1 % (0-0) H 07/31/17 08:23 Monocytes % (Manual) 10 % (0-10) 07/31/17 08:23 Toxic Granulation Present 07/31/17 08:23 Platelet Estimate Normal (NORMAL) 07/31/17 08:23 Plt Clumps, EDTA Present 07/31/17 08:23 Large Platelets Present 07/31/17 08:23 Giant Platelets Present 07/31/17 08:23 Polychromasia Slight 07/31/17 08:23 Anisocytosis (manual) Slight 07/31/17 08:23 PT 13.9 SECONDS (9.7-12.2) H 07/30/17 18:33 INR 1.2 07/30/17 18:33 APTT 26 SECONDS (21-34) 07/30/17 18:33 Puncture Site Rra 08/03/17 12:40 pCO2 37 mm/Hg (35-45) 08/03/17 12:40 pO2 86 mm/Hg (80-100) 08/03/17 12:40 HCO3 25.8 mmol/L (21-28) 08/03/17 12:40 ABG pH 7.44 (7.35-7.45) 08/03/17 12:40 ABG Total CO2 26.2 mmol/L (22-28) 08/03/17 12:40 ABG O2 Saturation 99.6 % (95-98) H 08/03/17 12:40 ABG Base Excess 1.1 mmol/L (-2.0-3.0) 08/03/17 12:40 Joey Test Pos 08/03/17 12:40 ABG Potassium 3.7 mmol/L (3.6-5.2) 08/03/17 12:40 VBG pH 7.47 (7.32-7.43) H 07/31/17 15:35 VBG pCO2 32 mmHg (40-60) L 07/31/17 15:35 VBG HCO3 25.1 mmol/L 07/31/17 15:35 VBG Total CO2 24.3 mmol/L (22-28) 07/31/17 15:35 VBG O2 Sat (Calc) 98.0 % (40-65) H 07/31/17 15:35 VBG Base Excess 0.3 mmol/L (0.0-2.0) 07/31/17 15:35 VBG Potassium 3.7 mmol/L (3.6-5.2) 07/31/17 15:35 A-a O2 Difference 124.0 mm/Hg 08/03/17 12:40 Respiratory Index 1.4 08/03/17 12:40 Sodium 137.0 mmol/l (132-148) 08/03/17 12:40 Chloride 104.0 mmol/L (98-107) 08/03/17 12:40 Glucose 342 mg/dl (75-110) H 08/03/17 12:40 Lactate 2.2 mmol/L (0.7-2.1) H 08/03/17 12:40 Liter Flow 4.0 08/03/17 12:40 FiO2 36.0 % 08/03/17 12:40 Crit Value Called To mickey Brice 08/02/17 12:27 Crit Value Called By Matt pope,miranda 08/02/17 12:27 Crit Value Read Back Y 08/02/17 12:27 Blood Gas Notified Time 1230 08/02/17 12:27 Sodium 134 mmol/L (132-148) 08/06/17 06:28 Potassium 4.0 mmol/L (3.6-5.2) 08/06/17 06:28 Chloride 101 mmol/L (98-107) 08/06/17 06:28 Carbon Dioxide 24 mmol/L (22-30) 08/06/17 06:28 Anion Gap 14 (10-20) 08/06/17 06:28 BUN 7 mg/dL (9-20) L 08/06/17 06:28 Creatinine 0.7 MG/DL (0.8-1.5) L 08/06/17 06:28 Est GFR ( Amer) > 60 08/06/17 06:28 Est GFR (Non-Af Amer) > 60 08/06/17 06:28 POC Glucose (mg/dL) 170 mg/dL (65-110) H 08/06/17 12:10 Random Glucose 110 mg/dL (75-110) 08/06/17 06:28 Hemoglobin A1c 9.9 % (4.2-6.5) H 07/31/17 08:23 Lactic Acid 1.6 mmol/L (0.7-2.1) 08/05/17 13:43 Calcium 8.7 mg/dl (8.6-10.4) 08/06/17 06:28 Phosphorus 4.4 mg/dL (2.5-4.5) 08/06/17 06:28 Magnesium 1.6 mg/dL (1.6-2.3) 08/06/17 06:28 Total Bilirubin 0.2 mg/dL (0.2-1.3) 08/06/17 06:28 AST 35 U/L (17-59) 08/06/17 06:28 ALT 52 U/L (21-72) 08/06/17 06:28 Alkaline Phosphatase 100 U/L (38-126) 08/06/17 06:28 Total Protein 6.3 g/dL (6.3-8.3) 08/06/17 06:28 Albumin 2.9 g/dL (3.5-5.0) L 08/06/17 06:28 Globulin 3.4 gm/dL (2.2-3.9) 08/06/17 06:28 Albumin/Globulin Ratio 0.9 (1.0-2.1) L 08/06/17 06:28 Triglycerides 182 mg/dL (0-149) H 08/01/17 07:41 Cholesterol 122 mg/dL (0-199) 08/01/17 07:41 LDL Cholesterol Direct 46 mg/dL (0-129) 08/01/17 07:41 HDL Cholesterol 27 mg/dL (30-70) L 08/01/17 07:41 Procalcitonin 1.80 NG/ML (0.19-0.49) H 07/31/17 11:06 Arterial Blood Potassium 3.7 mmol/L (3.6-5.2) 08/03/17 12:40 Venous Blood Potassium 3.7 mmol/L (3.6-5.2) 07/31/17 15:35 Urine Color Yellow (YELLOW) 07/31/17 13:31 Urine Clarity Clear (Clear) 07/31/17 13:31 Urine pH 6.0 (5.0-8.0) 07/31/17 13:31 Ur Specific [place] 1.016 (1.003-1.030) 07/31/17 13:31 Urine Protein 1+ mg/dL (NEGATIVE) H 07/31/17 13:31 Urine Glucose (UA) 3+ mg/dL (Normal) H 07/31/17 13:31 Urine Ketones Negative mg/dL (NEGATIVE) 07/31/17 13:31 Urine Blood 1+ (NEGATIVE) H 07/31/17 13:31 Urine Nitrate Negative (NEGATIVE) 07/31/17 13:31 Urine Bilirubin Negative (NEGATIVE) 07/31/17 13:31 Urine Urobilinogen Normal mg/dL (0.2-1.0) 07/31/17 13:31 Ur Leukocyte Esterase Neg Bee/uL (Negative) 07/31/17 13:31 Urine WBC (Auto) 1 /hpf (0-5) 07/31/17 13:31 Urine RBC (Auto) 4 /hpf (0-3) H 07/31/17 13:31 Ur Squamous Epith Cells < 1 /hpf (0-5) 07/31/17 13:31 Vancomycin Peak 15.3 ug/mL (30.0-40.0) L 08/05/17 19:07 Vancomycin Trough 7.8 ug/mL (5.0-10.0) 08/05/17 13:43 Hepatitis A IgM Ab Negative (NEGATIVE) 08/02/17 14:03 Hep Bs Antigen Negative (NEGATIVE) 08/02/17 14:03 Hep B Core IgM Ab Negative (NEGATIVE) 08/02/17 14:03 Hepatitis C Antibody Negative (NEGATIVE) 08/02/17 14:03 HIV 1&2 Antibody Screen Negative (NEGATIVE) 08/02/17 14:53 H.influenzae Type B Ag Not required (NEGATIVE) 08/02/17 06:57 Ur L.pneumophila Ag Negative (NEGATIVE) 08/02/17 08:30 Mycoplasma pneumon IgM Negative (NEGATIVE) 08/03/17 06:45 N.meningitidis ACY/W135 Not required (NEGATIVE) 08/02/17 06:57 N.meningi B/E.coli K1 Ag Not required (NEGATIVE) 08/02/17 06:57 Group B Strep Antigen Not required (NEGATIVE) 08/02/17 06:57 S. pneumoniae Antigen Negative (NEGATIVE) 08/02/17 06:57 - Hospital Course Hospital Course: "CC: Cellulitis, Diabetic Hyperglycemia HPI: Pt is a 46M with PMH asthma, DM, HTN, and pneumonia 2 weeks ago who presents to the ED c/o flu like symptoms and boil on his right grown. Patient says he noticed a bump in his groin 2 days ago that has gradually enlarged and become more erythematous. Patient says it is painful and describes it as 10/10 intensity. Patient says he also started feeling ill on his way home from work today. Patient admits to fever and chills, feeling weak, dizziness, exertional SOB, cough product of white sputum, nausea, and vomiting. Patient says vomiting 2-3x yestersay and 3-4x today. Patient says it looked like whatever he ate. Patient denies hematemesis, LAZO, change in vision, tinnitus, sore throat, neck pain, lymphadenopathy, CP/palpitations, wheezing, AP/D/C/melena/hematochezia, dysuria, frequency, incontinence, hematuria, flank pain, back or join pain, syncope, and rash." Sepsis 2/2 PNA: Patient was treated with Zosyn 3.3 IV q8 and given duoneb treatment q6h. On 08/02/17, WBC decreased from 18.[address] showed question of mild mediastinal subcarinal lymphadenopathy and suggestion of mild left hilar adenopathy. It also showed multifocal air space opacities with air bronchograms involving left upper lobe, right upper lobe, bilateral lower lobes and to a lesser extent the lingula and right middle lobe. Most compatible with multifocal pneumonia. There was also question of trace b/l pleural effusions. CXRAY demonstrated prominent diffuse increased interstitial lung markings throughout both lungs suggestive for edema and or infiltrated with patch airspace. HIV and Hep panel was negative. 08/03 ABG showed pCO2 37, pO2: 86, HCO3 : 25.8, pH: 7.44, SaO2: 99.6. Vancomycin was increased to 1400 mg q12h on 08/03. NS was stopped on 08/04 and lactate decreased from to 1.4 from 2.2. ICU ( [facility]), Pulmonology ([facility]), and ID ([facility]) were consulted. F/u chest XRAY on 08/04 showed significantly improved CHF with limited residual. Bilateral basilar atelectasis or infiltrate was minimal at the time as well. R. Groin Abscess: Patient was treated with Clindamycin 600 mg Q6. Surgery ( [facility]) was consulted 08/01/17. Conservative management was chosen as the abscess was draining spontaneously and clinical picture likely due to simultaneous pneumonia. Warm compresses were used and antibiotics were continued along with IVF and GI PPX. Bedside wound debridement ([facility]) was performed on 08/03 for removal of necrotic tissue. Wound culture demonstrated beta hemolytic strep resistant to clindamycin. Patient was treated with Zosyn 3.3 IV Q8. Patient explained how to change dressing at home. Tachycardia: Patient was transferred to telemetry floor on 08/02 for tachycardia and cardiology ([facility]) was consulted. Echo was performed which showed normal size, LV, RA, and RV. LA was mildly dilated 4.1 cm. There was normal LV wall motion, thickness, and systolic & diastolic function with LV ejection fraction of 55-60%. Aortic, mitral, tricuspid, and pulmonary valves appeared grossly normal. Trace mitral and tricuspid regurgitation. There was no pericardial effusion and normal sized aortic root. Patient was treated with Lasix 40 mg daily, Kdur 20 meq daily, and Slow-mag 1 tab daily on 08/[address] Leavitt. Patient to continue to take Lasix 20 mg po daily as per Dr. Leavitt. Hypokalemia: Patient was treated with Potassium Chloride as needed. Hypomagnesemia: Patient was treated with magnesium sulfate as needed. Fever: Patient was treated with Tylenol 650 mg PO Q6 PRN Hx DM: Patient was treated with Novalin 70/30 25 U BID AC which was discontinued on 08/03. Lantus 30 u HS and Novolog 10 u TIDAC was started that that time with high dose insulin sliding scale and acuchecks. HbA1c was followed. Novolog was increased to 13 units TIDAC. Patient will continue this at home. Hx HTN: Patient was treated with Lisinopril 5mg PO QD. Prophylaxis treatment: Patient was treated with heparin for anticoagulation, protonix for GERD, zofran PRN for nausea, and Florastor 250 mg PO daily. Patient cleared for discharge as per Dr. Miles. This is a summary of the patient's hospital course, please see chart for details. Discharge Exam - Head Exam Head Exam: ATRAUMATIC, NORMAL INSPECTION, NORMOCEPHALIC - Eye Exam Eye Exam: EOMI, Normal appearance - ENT Exam ENT Exam: Mucous Membranes Moist - Neck Exam Neck exam: Full Rom - Respiratory Exam Respiratory Exam: Clear to PA & Lateral, NORMAL BREATHING PATTERN - Cardiovascular Exam Cardiovascular Exam: REGULAR RHYTHM, RRR - GI/Abdominal Exam GI & Abdominal Exam: Normal Bowel Sounds - Extremities Exam Extremities exam: full ROM, normal inspection - Neurological Exam Neurological exam: Alert, Oriented x3 - Psychiatric Exam Psychiatric exam: Normal Affect, Normal Mood - Skin Skin Exam: Intact, Normal Color Discharge Plan - Discharge Medications Prescriptions: Amoxicillin/Clavulanate [Augmentin 875 MG-125 MG] 1 tab PO BID #20 tab Furosemide [Lasix] 20 mg PO DAILY #30 udc Insulin Aspart, Recombinant [Novolog] 13 unit SC TIDAC #1 vial Insulin Glargine, Recombina [Lantus] 30 unit SC HS #1 vial Magnesium Oxide [Magnesium] 400 mg PO DAILY #7 capsule - Follow Up Plan Condition: STABLE Disposition: HOME/ ROUTINE Instructions: Furosemide (By mouth), Amoxicillin/Clavulanate Potassium (By mouth), Insulin Aspart, Recombinant (By injection), Magnesium Oxide (By mouth), Insulin Glargine (By injection), Cellulitis (DC), Diabetic Foot Care (DC), Basic Carbohydrate Counting (DC), Meal Planning with the Plate Method (DC), Meal Planning with Diabetes Exchanges (DC), Debridement (DC) Additional Instructions: Patient stable for discharge as per Dr. Miles. Patient stable as per Dr. Leavitt and Dr. Patel. Patient should follow up with Dr. Amato within one week. Patient to take Augmentin 875mg po BID for 10 days. Patient to take Lasix 20 mg daily as per Dr. Leavitt. Patient to stop taking home medication Novalin 70/30 25u BID and now to take Novolog 13 u sc three times a day before meals and Lantus 30 u sc at night. Patient to also take magnesium oxide once per day or as tolerated. If symptoms worsen or persist return to emergency room immediately. Instructions explained to patient who understands and agrees. Referrals: Manjit Muir MD [Medical Doctor] - <James Miles H - Last Filed: 08/06/17 19:17> Provider - Provider Date of Admission: 07/30/17 18:51 Attending physician: Maximiliano Hickman MD Hospital Course - Lab Results Lab Results: Micro Results 07/31/17 13:00 Sputum Gram Stain - Final 07/31/17 13:00 Sputum Sputum Culture - Final NORMAL ORAL JIM 07/30/17 21:16 Groin Gram Stain - Final 07/30/17 21:16 Groin Wound Culture - Final Beta Hemolytic Strep Group B 07/31/17 16:30 Abscess - Groin Gram Stain - Final 07/31/17 16:30 Abscess - Groin Wound Culture - Final Beta Hemolytic Strep Group B 07/30/17 19:33 Groin Gram Stain - Final 07/30/17 19:33 Groin Wound Culture - Final Beta Hemolytic Strep Group B 07/31/17 13:00 Urine,Catheterized Urine Culture - Final No Growth (<1,000 CFU/ML) Most Recent Lab Values WBC 9.9 K/uL (4.8-10.8) 08/06/17 06:28 RBC 3.90 Mil/uL (4.40-5.90) L 08/06/17 06:28 Hgb 10.8 g/dL (12.0-18.0) L 08/06/17 06:28 Hct 32.1 % (35.0-51.0) L 08/06/17 06:28 MCV 82.3 fL (80.0-94.0) 08/06/17 06:28 MCH 27.8 pg (27.0-31.0) 08/06/17 06:28 MCHC 33.8 g/dL (33.0-37.0) 08/06/17 06:28 RDW 13.4 % (11.5-14.5) 08/06/17 06:28 Plt Count 544 K/uL (130-400) H 08/06/17 06:28 MPV 7.1 fL (7.2-11.7) L 08/06/17 06:28 Neut % (Auto) 55.6 % (50.0-75.0) 08/06/17 06:28 Lymph % (Auto) 21.3 % (20.0-40.0) 08/06/17 06:28 Saunders % (Auto) 12.5 % (0.0-10.0) H 08/06/17 06:28 Eos % (Auto) 9.6 % (0.0-4.0) H 08/06/17 06:28 Baso % (Auto) 1.0 % (0.0-2.0) 08/06/17 06:28 Neut # 5.5 K/uL (1.8-7.0) 08/06/17 06:28 Lymph # 2.1 K/uL (1.0-4.3) 08/06/17 06:28 Saunders # 1.2 K/uL (0.0-0.8) H 08/06/17 06:28 Eos # 1.0 K/uL (0.0-0.7) H 08/06/17 06:28 Baso # 0.1 K/uL (0.0-0.2) 08/06/17 06:28 Neutrophils % (Manual) 82 % (50-75) H 07/31/17 08:23 Band Neutrophils % 1 % (0-2) 07/31/17 08:23 Lymphocytes % (Manual) 6 % (20-40) L 07/31/17 08:23 Reactive Lymphs % 1 % (0-0) H 07/31/17 08:23 Monocytes % (Manual) 10 % (0-10) 07/31/17 08:23 Toxic Granulation Present 07/31/17 08:23 Platelet Estimate Normal (NORMAL) 07/31/17 08:23 Plt Clumps, EDTA Present 07/31/17 08:23 Large Platelets Present 07/31/17 08:23 Giant Platelets Present 07/31/17 08:23 Polychromasia Slight 07/31/17 08:23 Anisocytosis (manual) Slight 07/31/17 08:23 PT 13.9 SECONDS (9.7-12.2) H 07/30/17 18:33 INR 1.2 07/30/17 18:33 APTT 26 SECONDS (21-34) 07/30/17 18:33 Puncture Site Rra 08/03/17 12:40 pCO2 37 mm/Hg (35-45) 08/03/17 12:40 pO2 86 mm/Hg (80-100) 08/03/17 12:40 HCO3 25.8 mmol/L (21-28) 08/03/17 12:40 ABG pH 7.44 (7.35-7.45) 08/03/17 12:40 ABG Total CO2 26.2 mmol/L (22-28) 08/03/17 12:40 ABG O2 Saturation 99.6 % (95-98) H 08/03/17 12:40 ABG Base Excess 1.1 mmol/L (-2.0-3.0) 08/03/17 12:40 Joey Test Pos 08/03/17 12:40 ABG Potassium 3.7 mmol/L (3.6-5.2) 08/03/17 12:40 VBG pH 7.47 (7.32-7.43) H 07/31/17 15:35 VBG pCO2 32 mmHg (40-60) L 07/31/17 15:35 VBG HCO3 25.1 mmol/L 07/31/17 15:35 VBG Total CO2 24.3 mmol/L (22-28) 07/31/17 15:35 VBG O2 Sat (Calc) 98.0 % (40-65) H 07/31/17 15:35 VBG Base Excess 0.3 mmol/L (0.0-2.0) 07/31/17 15:35 VBG Potassium 3.7 mmol/L (3.6-5.2) 07/31/17 15:35 A-a O2 Difference 124.0 mm/Hg 08/03/17 12:40 Respiratory Index 1.4 08/03/17 12:40 Sodium 137.0 mmol/l (132-148) 08/03/17 12:40 Chloride 104.0 mmol/L (98-107) 08/03/17 12:40 Glucose 342 mg/dl (75-110) H 08/03/17 12:40 Lactate 2.2 mmol/L (0.7-2.1) H 08/03/17 12:40 Liter Flow 4.0 08/03/17 12:40 FiO2 36.0 % 08/03/17 12:40 Crit Value Called To mickey Brice 08/02/17 12:27 Crit Value Called By Matt pope rrt 08/02/17 12:27 Crit Value Read Back Y 08/02/17 12:27 Blood Gas Notified Time 1230 08/02/17 12:27 Sodium 134 mmol/L (132-148) 08/06/17 06:28 Potassium 4.0 mmol/L (3.6-5.2) 08/06/17 06:28 Chloride 101 mmol/L (98-107) 08/06/17 06:28 Carbon Dioxide 24 mmol/L (22-30) 08/06/17 06:28 Anion Gap 14 (10-20) 08/06/17 06:28 BUN 7 mg/dL (9-20) L 08/06/17 06:28 Creatinine 0.7 MG/DL (0.8-1.5) L 08/06/17 06:28 Est GFR ( Amer) > 60 08/06/17 06:28 Est GFR (Non-Af Amer) > 60 08/06/17 06:28 POC Glucose (mg/dL) 170 mg/dL (65-110) H 08/06/17 12:10 Random Glucose 110 mg/dL (75-110) 08/06/17 06:28 Hemoglobin A1c 9.9 % (4.2-6.5) H 07/31/17 08:23 Lactic Acid 1.6 mmol/L (0.7-2.1) 08/05/17 13:43 Calcium 8.7 mg/dl (8.6-10.4) 08/06/17 06:28 Phosphorus 4.4 mg/dL (2.5-4.5) 08/06/17 06:28 Magnesium 1.6 mg/dL (1.6-2.3) 08/06/17 06:28 Total Bilirubin 0.2 mg/dL (0.2-1.3) 08/06/17 06:28 AST 35 U/L (17-59) 08/06/17 06:28 ALT 52 U/L (21-72) 08/06/17 06:28 Alkaline Phosphatase 100 U/L (38-126) 08/06/17 06:28 Total Protein 6.3 g/dL (6.3-8.3) 08/06/17 06:28 Albumin 2.9 g/dL (3.5-5.0) L 08/06/17 06:28 Globulin 3.4 gm/dL (2.2-3.9) 08/06/17 06:28 Albumin/Globulin Ratio 0.9 (1.0-2.1) L 08/06/17 06:28 Triglycerides 182 mg/dL (0-149) H 08/01/17 07:41 Cholesterol 122 mg/dL (0-199) 08/01/17 07:41 LDL Cholesterol Direct 46 mg/dL (0-129) 08/01/17 07:41 HDL Cholesterol 27 mg/dL (30-70) L 08/01/17 07:41 Procalcitonin 1.80 NG/ML (0.19-0.49) H 07/31/17 11:06 Arterial Blood Potassium 3.7 mmol/L (3.6-5.2) 08/03/17 12:40 Venous Blood Potassium 3.7 mmol/L (3.6-5.2) 07/31/17 15:35 Urine Color Yellow (YELLOW) 07/31/17 13:31 Urine Clarity Clear (Clear) 07/31/17 13:31 Urine pH 6.0 (5.0-8.0) 07/31/17 13:31 Ur Specific [place] 1.016 (1.003-1.030) 07/31/17 13:31 Urine Protein 1+ mg/dL (NEGATIVE) H 07/31/17 13:31 Urine Glucose (UA) 3+ mg/dL (Normal) H 07/31/17 13:31 Urine Ketones Negative mg/dL (NEGATIVE) 07/31/17 13:31 Urine Blood 1+ (NEGATIVE) H 07/31/17 13:31 Urine Nitrate Negative (NEGATIVE) 07/31/17 13:31 Urine Bilirubin Negative (NEGATIVE) 07/31/17 13:31 Urine Urobilinogen Normal mg/dL (0.2-1.0) 07/31/17 13:31 Ur Leukocyte Esterase Neg Bee/uL (Negative) 07/31/17 13:31 Urine WBC (Auto) 1 /hpf (0-5) 07/31/17 13:31 Urine RBC (Auto) 4 /hpf (0-3) H 07/31/17 13:31 Ur Squamous Epith Cells < 1 /hpf (0-5) 07/31/17 13:31 Vancomycin Peak 15.3 ug/mL (30.0-40.0) L 08/05/17 19:07 Vancomycin Trough 7.8 ug/mL (5.0-10.0) 08/05/17 13:43 Hepatitis A IgM Ab Negative (NEGATIVE) 08/02/17 14:03 Hep Bs Antigen Negative (NEGATIVE) 08/02/17 14:03 Hep B Core IgM Ab Negative (NEGATIVE) 08/02/17 14:03 Hepatitis C Antibody Negative (NEGATIVE) 08/02/17 14:03 HIV 1&2 Antibody Screen Negative (NEGATIVE) 08/02/17 14:53 H.influenzae Type B Ag Not required (NEGATIVE) 08/02/17 06:57 Ur L.pneumophila Ag Negative (NEGATIVE) 08/02/17 08:30 Mycoplasma pneumon IgM Negative (NEGATIVE) 08/03/17 06:45 N.meningitidis ACY/W135 Not required (NEGATIVE) 08/02/17 06:57 N.meningi B/E.coli K1 Ag Not required (NEGATIVE) 08/02/17 06:57 Group B Strep Antigen Not required (NEGATIVE) 08/02/17 06:57 S. pneumoniae Antigen Negative (NEGATIVE) 08/02/17 06:57 Attending/Attestation - Attestation I have personally seen and examined this patient.: Yes I have fully participated in the care of the patient.: Yes I have reviewed all pertinent clinical information, including history, physical exam and plan: Yes Notes (Text): 08/06/17 19:13 Medical Attending: Agree with the above note by the resident. Patient was seen and examined by me as well. Reviewed the events of the previous few days since I last seen patient. His WBC is stable, afebrile, also the blood pressure is stable as well. Patient reports he feels much better - when I asked him how much he says back to his baseline. On exam I also asked him to walk with us in the hallway and he was able to do so. He walked with us up to the nurses station and around the hallway and did not report chest pain or chest palpitations. Denied shortness of breath. I also reviewed telemetry since there was one documented epiosde of a 5 beat run of vtach and since then he did not have another episode that was recorded. He denies palpitqations or feeling like he had skipped heart beat. Will discharge today. He needs to continue with oral abx as mentioned above in resident note. We wish him the best James Miles
--- NOTE | 2017-08-06 21:09 | PN ---
DATE: SUBJECTIVE: The patient's shortness of breath is improving. PHYSICAL EXAMINATION VITAL SIGNS: Blood pressure 131/85, heart rate 94, temperature 98.2 and respirations 20. HEENT: Normocephalic. HEART: S1 and S2 regular. CHEST: Bibasilar rhonchi. EXTREMITIES: No edema. LABORATORY DATA: Hemoglobin and hematocrit 10.8 and 32.1, white count 9.9, platelet count 544,000. SMA-7 is within normal limits except for BUN and creatinine of 7 and 0.7. Today's magnesium is 1.6. ASSESSMENT: 1. Pneumonia. 2. Non-sustained ventricular tachycardia. 3. Hypomagnesemia. 4. Uncontrolled diabetes mellitus. 5. Diastolic heart failure. CONDITIONS: Continue current bronchodilators and continue K-Dur at 40 mEq orally daily, Lasix 40 mg intravenously once a day, IV Zosyn at 3.375 g q.8 hours, Zestril 5 mg once a day. I discussed the case with PGY1 and I recommended initiation of IV magnesium sulfate replacement and 1 g was ordered. Increase Slow-Mag to 1 tablet twice a day. Vitaliy Leavitt MD
== END 2017-08-06 17:30 | disposition home or self-care (01) | DRG 853 ==
LOC: C.ER 16:47 → C.9E 18:51 → C.3T 19:40 → C.6T 08-02 15:23
PROVIDERS: ADMIT Internal Medicine; ATTEND Internal Medicine
PROC: 0HBHXZZ Excision of Right Upper Leg Skin, External Approach (ICD-10-PCS; principal; 2017-07-31)
DX: A41.9 Sepsis, unspecified organism (principal); J18.9 Pneumonia, unspecified organism; R65.21 Severe sepsis with septic shock; I47.2 Ventricular tachycardia; I11.0 Hypertensive heart disease with heart failure; I50.30 Unspecified diastolic (congestive) heart failure; L03.115 Cellulitis of right lower limb; Z68.41 Body mass index [BMI] 40.0-44.9, adult; E11.65 Type 2 diabetes mellitus with hyperglycemia; L02.224 Furuncle of groin; Z79.4 Long term (current) use of insulin; J45.909 Unspecified asthma, uncomplicated; Z87.891 Personal history of nicotine dependence; E66.01 Morbid (severe) obesity due to excess calories; E83.42 Hypomagnesemia; E87.6 Hypokalemia

== ENCOUNTER 2018-03-26 19:05 | Emergency (ER) | payer SELFPAY ==
[2018-03-26 19:05] VITALS: BMI 43.5
[2018-03-26 19:50] VITALS: BP 136/72; PULSE 90; RESP 20; TEMP 97.8; O2SAT 96
[2018-03-26] MEDS ORDERED: Tmp-Smz 800 mg-160 mg DS Tab PO STA (20:45)
[2018-03-26] MEDS ORDERED: Tmp-Smz 800 mg-160 mg DS Tab ONE (20:52)
--- NOTE | 2018-03-26 21:03 | C.PDOC ---
History Of Present Illness 47 year old male presents to the ED for evaluation of a boil to his abdomen x 1 week. Pt notes it initially began as a small pimple but has increased in size over the past 2 days. Reports that his blood sugar is "ok"- 120 today. Patient reports similar episode in his groin last year which resulted in hospitalization. Patient denies fever, n/v, chest pain, sob, or fluctuations in sugar. Time Seen by Provider: 03/26/18 20:19 Chief Complaint (Nursing): Abnormal Skin Integrity History Per: Patient History/Exam Limitations: no limitations Onset/Duration Of Symptoms: Days Location Of Injury: Right: Abdomen Additional History Per: Patient Past Medical History Reviewed: Historical Data, Nursing Documentation, Vital Signs Vital Signs: Last Vital Signs Temp 97.8 F 03/26/18 19:46 Pulse 90 03/26/18 19:46 Resp 20 03/26/18 21:35 BP 136/72 03/26/18 19:46 Pulse Ox 96 03/26/18 21:14 - Medical History PMH: Diabetes, HTN Surgical History: No Surg Hx - [facility] Procedures EXCISION OF RIGHT UPPER LEG SKIN, EXTERNAL APPROACH (07/30/17) Family History: States: Unknown Family Hx - Social History Hx Alcohol Use: No Hx Substance Use: No - Immunization History Hx Tetanus Toxoid Vaccination: No Hx Influenza Vaccination: No Hx Pneumococcal Vaccination: No Review Of Systems Except As Marked, All Systems Reviewed And Found Negative. Skin: Positive for: Other (boil to right abdominal region ) Physical Exam - Physical Exam Appears: Non-toxic, No Acute Distress Skin: Warm, Dry, Other (8cm area of induration and erythma with centralized opening to right abdominal region ) Head: Atraumatic, Normacephalic Eye(s): bilateral: Normal Inspection, EOMI Nose: Normal Oral Mucosa: Moist Neck: Normal ROM, Supple Chest: Symmetrical, No Deformity, No Tenderness Cardiovascular: Rhythm Regular Respiratory: Normal Breath Sounds, No Rales, No Rhonchi, No Wheezing Gastrointestinal/Abdominal: Soft, No Tenderness, No Guarding, No Rebound Back: No CVA Tenderness Extremity: Normal ROM, Capillary Refill (less than 2 seconds ) Neurological/Psych: Oriented x3, Normal Speech, Normal Cognition Gait: Steady Additional Physical Exam Comments: blood sugar level of 178 mg/dL noted ED Course And Treatment O2 Sat by Pulse Oximetry: 96 Progress Note: Bactrim PO and Keflex PO administered. Pt has an actively draining wound with surrounding celulitis. Offered further I&D, pt declines noting that "last time I took antibiotics and it went away." Discussed concern of elevated glucose and instructed strict follow up in 2 days. Instructed to return sooner if symtpoms persist or worsen. Area of erythema circled. Case discussed with Dr Shanks, agreed upon plan and discharge. Disposition - Disposition Disposition: HOME/ ROUTINE Disposition Time: 19:35 Condition: STABLE Additional Instructions: Wound check in 2 days. Return right away if sugar is not controlled or redness worsens. Prescriptions: Cephalexin [cephalexin] 500 mg PO BID #14 cap Sulfamethoxazole/Trimethoprim [Bactrim DS 800 mg-160 mg] 1 tab PO BID #14 tab Instructions: Cellulitis and Erysipelas (Skin Infections) Forms: [employer] (Mongolian) - Clinical Impression Clinical Impression: Cellulitis, Abscess - PA / [employer]IBER DES[employer] / Resident Statement MD/DO has reviewed & agrees with the documentation as recorded. - Scribe Statement The provider has reviewed the documentation as recorded by the Scribe (Chloe Louis) All medical record entries made by the Scribe were at my direction and personally dictated by me. I have reviewed the chart and agree that the record accurately reflects my personal performance of the history, physical exam, medical decision making, and the department course for this patient. I have also personally directed, reviewed, and agree with the discharge instructions and disposition.
== END 2018-03-26 21:34 | disposition home or self-care (01) ==
LOC: C.ER 19:05
DX: L03.311 Cellulitis of abdominal wall (principal); L02.211 Cutaneous abscess of abdominal wall